=== PATIENT | female | born 1970 | race Caucasian/White ===

== ENCOUNTER → 2019-11-20 12:59 | Outpatient (BNVA) | payer MEDICAID, SELFPAY | PROVIDERS: Family Provider Family Medicine; Visit Provider Nurse Practitioner | DX: F43.12 Post-traumatic stress disorder, chronic (principal); G47.30 Sleep apnea, unspecified | CPT/HCPCS: 99214 ==

== ENCOUNTER → 2019-11-25 13:38 | Outpatient (BNVA) | payer MEDICAID, SELFPAY | PROVIDERS: Family Provider Family Medicine; PCP Registered Nurse; Referring Provider Registered Nurse; Visit Provider Specialist | DX: G40.409 Other generalized epilepsy and epileptic syndromes, not intractable, without status epilepticus (principal) | CPT/HCPCS: 99204; 99214 ==

== ENCOUNTER 2019-11-25 15:09 | Outpatient (CLI) | payer MEDICAID, SELFPAY ==
[2019-11-25 16:46] LABS: Basophils % 0.3 %; Eosinophils # 0.2 10^3/uL (0.0-0.8); Eosinophils % 3.1 %; Hematocrit 43.8 % (37.0-47.0); Hemoglobin 14.5 g/dL (11.5-15.3); Lymphocytes # 2.4 10^3/uL (0.8-4.8); Lymphocytes % 36.4 %; Mean Corpuscular HGB Conc 33.1 g/dL (30.0-36.0); Mean Corpuscular Hemoglobin 30.2 pg (28.0-34.0); Mean Corpuscular Volume 91.3 fL (81-99); Mean Platelet Volume 9.3 fL (7.4-10.4); Monocytes # 0.4 10^3/uL (0.2-0.9); Monocytes % 5.4 %; Neutrophils # 3.5 10^3/uL (1.8-7.7); Neutrophils % 54.5 %; Nucleated Red Blood Cells % 0 %; Platelet Count 277 10^3/cmm (130-400); Red Cell Distribution Width 12.9 % (12.1-15.1); White Blood Count 6.5 10^3/uL (4.0-10.0)
[2019-11-25 17:18] LABS: Alanine Aminotransferase 36 U/L (0-33); Alkaline Phosphatase 98 IU/L (35-105); Anion Gap 16.8 (5-19); Aspartate Amino Transferase 32 U/L (0-32); Blood Urea Nitrogen 14 mg/dL (6-20); Calcium 10.6 mg/dL (8.5-10.5); Carbon Dioxide 24 mmol/L (22-29); Chloride 104 mmol/L (98-107); Estmated Average Glucose 114; Globulin 3.4 g/dL (1.3-4.6); Glomerular Filtration Rate 66.3 mL/min (90-130); Glucose 105 mg/dL (65-115); Hemoglobin A1C 5.6 % (4.0-6.0); Osmolality Calculated 289 mOsm/kg (285-295); Potassium 3.8 mmol/L (3.5-5.1); Sodium 141 mmol/L (136-145); Thyroid Stimulating Hormone 2.29 uIU/mL (0.27-4.20); Total Bilirubin 0.4 mg/dL (0.15-1.2); Total Protein 7.4 g/dL (6.6-8.7)
== END 2019-11-25 15:10 | disposition home or self-care (01) ==
LOC: LAB 15:10
PROVIDERS: Family Provider Family Medicine; PCP Registered Nurse; Visit Provider Specialist
DX: Z00.00 Encounter for general adult medical examination without abnormal findings (principal); G40.309 Generalized idiopathic epilepsy and epileptic syndromes, not intractable, without status epilepticus; G47.30 Sleep apnea, unspecified; F43.12 Post-traumatic stress disorder, chronic; Z79.899 Other long term (current) drug therapy
CPT/HCPCS: 80053; 83036; 84443; 85025

== ENCOUNTER → 2019-11-30 12:24 | Outpatient (BNVA) | payer MEDICAID, SELFPAY | PROVIDERS: Family Provider Family Medicine; PCP Registered Nurse; Visit Provider Specialist | DX: R56.9 Unspecified convulsions (principal) | CPT/HCPCS: 95816 ==

== ENCOUNTER 2019-12-14 19:50 | Emergency (ER) | payer MEDICAID, SELFPAY ==
[2019-12-14 19:51] VITALS: BP 206/96; PULSE 76; RESP 19; TEMP 36.7; O2SAT 97; BMI 51.5
--- NOTE | 2019-12-14 19:52 | CTR_ITS ---
PROCEDURE INFORMATION: Exam: CT Abdomen And Pelvis Without Contrast Exam date and time: 12/14/2019 8:02 PM Age: 49 years old Clinical indication: Abdominal pain; Flank; Left; Prior surgery; Additional info: Flank pain TECHNIQUE: Imaging protocol: Computed tomography of the abdomen and pelvis without contrast. Total DLP: 2039.78 mGy-cm Radiation optimization: All CT scans at this facility use at least one of these dose optimization techniques: automated exposure control; mA and/or kV adjustment per patient size (includes targeted exams where dose is matched to clinical indication); or iterative reconstruction. COMPARISON: No relevant prior studies available. FINDINGS: Pleural space: Scant bilateral pleural effusions. Liver: Hepatomegaly. Gallbladder and bile ducts: Status post cholecystectomy. No visible intra or extrahepatic biliary ectasia. Pancreas: Pancreas unremarkable. No visible pancreatic ductal ectasia. Spleen: Spleen unremarkable. Adrenals: Adrenal glands unremarkable. Kidneys and ureters: Three tiny distal left ureteral stones averaging 2 mm in diameter aligned one after another at the mid sacrum level. Moderate left hydronephrosis and hydroureter to the partially obstructing stones. No visible residual nephrolithiasis left kidney. Solitary 7 mm focus of nonobstructing calyceal nephrolithiasis inferior pole right kidney. Stomach and bowel: Nonobstructive bowel pattern. No visible diverticulitis. No evidence for adynamic or reactive ileus. Appendix: The appendix is not visualized and presumed surgically absent. Intraperitoneal space: Unremarkable. No free air. No significant fluid collection. Vasculature: The abdominal aorta is nonaneurysmal. Mild arterial sclerotic disease. Lymph nodes: Unremarkable. No enlarged lymph nodes. Bladder: Unremarkable as visualized. Reproductive: Status post hysterectomy. Bones/joints: No visible active musculoskeletal pathology. Soft tissues: Unremarkable. Other findings: Marked obesity. CT/CT kidney stone 07773 IMPRESSION: 1. Three tiny distal left ureteral stones averaging 2 mm in diameter aligned like a string of pearls with associated moderate left hydronephrosis and hydroureter to the partially obstructing stones. 2. Bilateral scant pleural effusions. Radiation Dose CTDIVOL = (mGy): DLP = 2039.78 (mGy-cm)
--- NOTE | 2019-12-14 19:52 | W.ED.ABDPA2 ---
HPI - Abdominal Pain General: Chief Complaint: Urogenital-Female Stated Complaint: LEFT FLANK PAIN Time Seen by Provider: 12/14/19 19:52 Source: patient Mode of arrival: ambulatory Limitations: no limitations History of Present Illness: HPI narrative: 49-year-old female comes in today with left flank pain radiating into her groin. Patient has a history of renal stones. Patient appears well. Patient appears in mild to moderate pain. MD elicited complaint: flank pain Review of Systems General: Reports: 10 or more systems reviewed and unremarkable except in HPI and below : Reports: flank pain (left) PFSH ED PFSH: Social History Smoking and tobacco status: never smoked Second hand smoke exposure: No Alcohol intake: never History of recent travel: No Physical Exam Const: COMMON NORMALS: no apparent distress and oriented x3 GENERAL APPEARANCE: cooperative HENMT: COMMON NORMALS: normocephalic, external ears normal, EAC's normal, TM's normal bilaterally and external nose normal HEAD & SCALP: normal to inspection and normocephalic FACE & SINUS: normal facial exam NOSE: external nose normal GENERAL EAR: hearing not grossly impaired EXTERNAL EAR: Yes external ears normal EXTERNAL AUDITORY CANAL: EAC's normal TYMPANIC MEMBRANE: TM's normal bilaterally MOUTH: oral and palatal mucosa normal THROAT: posterior oropharynx normal Eye: COMMON NORMALS: PERRL and EOMs intact bilaterally PUPIL: Yes PERRL Neck/C-Spine: COMMON NORMALS: full ROM and no lymphadenopathy Lymph: LYMPHATIC: no lymphedema noted Chest: COMMONS NORMALS: inspection of chest normal and palpation of chest normal Resp: COMMON NORMALS: normal respiratory effort and clear to auscultation bilaterally AUSCULTATION: clear to auscultation bilaterally Cardio: COMMON NORMALS: regular rate and regular rhythm RATE: regular rate RHYTHM: regular rhythm GI: COMMON NORMALS: normal to inspection, nondistended, normoactive bowel sounds and non-tender : BLADDER/KIDNEY EXAM: Yes CVA tenderness Back/Pelvis: COMMON NORMALS: thoracic and lumbar spine normal to inspection GENERAL BACK: Yes CVA tenderness CVA tenderness: left Extremity: COMMON NORMALS: normal to inspection GENERAL: No edema Neuro: COMMON NORMALS: oriented x3, moves all extremities and no focal motor deficits Psych: COMMON NORMALS: mental status grossly normal and cooperative Skin: COMMON NORMALS: no rashes or lesions noted GENERAL SKIN EXAM: no rashes or lesions noted Course Vital Signs: Vital signs: Vital Signs Temperature 98.1 F 12/14/19 19:51 Pulse Rate 76 12/14/19 19:51 Respiratory Rate 18 12/14/19 20:57 Blood Pressure 206/96 12/14/19 19:51 Pulse Oximetry 97 12/14/19 19:51 MDM - Abdominal Pain MDM Narrative: Medical decision making narrative: Patient comes in with left flank pain radiating into her groin. Patient does have a history of renal calculi. Exam notes CVA tenderness on the left side. Respirations are even lungs are clear to auscultation. Vital signs are normal except for elevated blood pressure. Differential diagnosis includes constipation, renal colic, gastroenteritis, urinary tract infection. Laboratory values noted a white count of 12,000. Creatinine was 0.9. CT scan of the abdomen and pelvis noted 2 mm renal stones in the left ureter with hydronephrosis. Believe the patient probably has renal stones we will treat for pain and nausea. Encourage patient to follow-up with urology for further treatment and evaluation. Patient does see urologist in [place] for her routine care. Lab Data: Labs: Lab Results 12/14/19 12/14/19 12/14/19 Range/Units 20:30 20:30 21:33 WBC 12.8 H (4.0-10.0) 10^3/ uL RBC 4.84 (4.1-5.3) 10^6/u L Hgb 14.5 (11.5-15.3) g/dL Hct 44.5 (37.0-47.0) % MCV 91.9 (81-99) fL MCH 30.0 (28.0-34.0) pg MCHC 32.6 (30.0-36.0) g/dL RDW 12.6 (12.1-15.1) % Plt Count 299 (130-400) 10^3/c mm MPV 8.9 (7.4-10.4) fL Neut % (Auto) 79.2 % Lymph % (Auto) 14.9 % Frontier % (Auto) 4.3 % Eos % (Auto) 0.8 % Baso % (Auto) 0.4 % Neut # (Auto) 10.2 H (1.8-7.7) 10^3/u L Lymph # (Auto) 1.9 (0.8-4.8) 10^3/u L Frontier # (Auto) 0.6 (0.2-0.9) 10^3/u L Eos # (Auto) 0.1 (0.0-0.8) 10^3/u L Baso # (Auto) 0.1 (0.0-0.1) 10^3/u L Nucleated RBC % (a uto) 0 % Nucleated RBCs # 0.0 /100WBC Sodium 138 (136-145) mmol/L Potassium 3.8 (3.5-5.1) mmol/L Chloride 101 (98-107) mmol/L Carbon Dioxide 24 (22-29) mmol/L Anion Gap 16.8 (5-19) BUN 14 (6-20) mg/dL Creatinine 0.9 (0.5-0.9) mg/dL GFR Calculation 66.3 L (90-130) mL/min Glucose 124 H (65-115) mg/dL Calculated Osmolal ity 284 L (285-295) mOsm/k g Calcium 10.5 (8.5-10.5) mg/dL Total Bilirubin 0.2 (0.15-1.2) mg/dL AST 26 (0-32) U/L ALT 29 (0-33) U/L Alkaline Phosphata se 96 (35-105) IU/L Total Protein 7.3 (6.6-8.7) g/dL Albumin 4.2 (3.5-5.2) g/dL Globulin 3.1 (1.3-4.6) g/dL Lipase 19 (13-60) U/L Urine Color Yellow (Yellow) Urine Appearance Hazy A (CLEAR) Urine pH 6 (5-7) Ur Specific Gravit y 1.020 (1.005-1.030) Urine Protein Neg (Negative) Urine Glucose (UA) Norm (Normal) Urine Ketones Negative (Negative) Urine Blood 2+ H (Negative) Urine Nitrate Negative (Negative) Urine Bilirubin Neg (NEGATIVE) Urine Urobilinogen Norm (Negative) mg/dL Ur Leukocyte Raina ase Negative (Negative) Urine RBC 10-15 H (0-2) /hpf Urine WBC None (0-5) /hpf Ur Squamous Epith Cells 10-15 H (0-5) Amorphous Sediment 2+ Urine Bacteria 1+ H (NONE) Discharge Plan Discharge Patient Disposition: Home, Self-Care Clinical Impression: Left ureteral calculus Condition: Stable Prescriptions: New hydrocodone-acetaminophen 5-325 mg tablet 1 tab PO Q6H PRN (Reason: pain (scale score 7-10)) Qty: 14 RF: 0 tamsulosin 0.4 mg capsule 0.4 mg PO DAILY Qty: 7 RF: 0 ondansetron HCl 4 mg tablet 4 mg PO Q8H PRN (Reason: nausea and vomiting) Qty: 10 RF: 0 No Action melatonin 5 mg capsule PO .hs RF: 0 cholecalciferol (vitamin D3) [Vitamin D3] 25 mcg (1,000 unit) capsule 1,000 unit PO DAILY RF: 0 lovastatin 20 mg tablet 20 mg PO DAILY RF: 0 hydrochlorothiazide 25 mg tablet 25 mg PO DAILY RF: 0 meloxicam 15 mg tablet 15 mg PO DAILY RF: 0 allopurinol 300 mg tablet 300 mg PO DAILY RF: 0 magnesium 250 mg tablet 250 mg PO DAILY RF: 0 vit B complex with C #13-FA-D3 1-1,750 mg-unit tablet,disintegrating PO RF: 0 potassium 99 mg tablet PO DAILY RF: 0 multivitamin Capsule 1 cap PO DAILY RF: 0 zonisamide 100 mg capsule 500 mg PO DAILY Qty: 150 RF: 6 ezetimibe 10 mg tablet 10 mg PO DAILY RF: 0 trazodone 100 mg tablet See Rx Instructions PO .QHS Qty: 90 RF: 1 aripiprazole [Abilify] 2 mg tablet 2 mg PO DAILY Qty: 30 RF: 1 clonazepam 0.5 mg tablet See Rx Instructions PO DAILY PRN (Reason: anxiety) Qty: 30 RF: 1 Referrals: Joceline Anderson [Primary Care Provider] - Jelly Bahena DO [Family Provider] - Discharge Diet: Usual diet Discharge Activity: Increase activity as tolerated Patient Instructions: Kidney Stones (ED) Activity Restrictions/Additional Instructions: Home and rest. Activity as tolerated. Tylenol and ibuprofen as needed for pain. Drink plenty of water. Follow-up with Dr. Dawson in the urology clinic or specialist of choice. Return to the ER for high fever persistent nausea and vomiting or new concerns. Coding Level of Care Code ED Orthopaedic Physician Assistant for Chg Fwd Exam Comprehensive
[2019-12-14 20:42] LABS: Basophils # 0.1 10^3/uL (0.0-0.1); Basophils % 0.4 %; Eosinophils # 0.1 10^3/uL (0.0-0.8); Eosinophils % 0.8 %; Hematocrit 44.5 % (37.0-47.0); Hemoglobin 14.5 g/dL (11.5-15.3); Lymphocytes # 1.9 10^3/uL (0.8-4.8); Lymphocytes % 14.9 %; Mean Corpuscular HGB Conc 32.6 g/dL (30.0-36.0); Mean Corpuscular Volume 91.9 fL (81-99); Mean Platelet Volume 8.9 fL (7.4-10.4); Monocytes # 0.6 10^3/uL (0.2-0.9); Monocytes % 4.3 %; Neutrophils # 10.2 10^3/uL (1.8-7.7); Neutrophils % 79.2 %; Nucleated Red Blood Cells % 0 %; Platelet Count 299 10^3/cmm (130-400); Red Blood Count 4.84 10^6/uL (4.1-5.3); Red Cell Distribution Width 12.6 % (12.1-15.1); White Blood Count 12.8 10^3/uL (4.0-10.0)
[2019-12-14 20:57] VITALS: RESP 18
[2019-12-14] MEDS: tamsulosin 0.4 mg Capsule PO (20:57)
[2019-12-14] MEDS: morphine 4 mg/mL SDV 1 mL IM (20:57)
[2019-12-14] MEDS: ondansetron 4 MG Tablet PO (20:57)
[2019-12-14] MEDS: ketorolac 30 mg/mL INJ IM (20:58)
[2019-12-14 21:12] LABS: Alanine Aminotransferase 29 U/L (0-33); Albumin Level 4.2 g/dL (3.5-5.2); Alkaline Phosphatase 96 IU/L (35-105); Anion Gap 16.8 (5-19); Aspartate Amino Transferase 26 U/L (0-32); Blood Urea Nitrogen 14 mg/dL (6-20); Calcium 10.5 mg/dL (8.5-10.5); Carbon Dioxide 24 mmol/L (22-29); Chloride 101 mmol/L (98-107); Globulin 3.1 g/dL (1.3-4.6); Glomerular Filtration Rate 66.3 mL/min (90-130); Glucose 124 mg/dL (65-115); Lipase 19 U/L (13-60); Osmolality Calculated 284 mOsm/kg (285-295); Potassium 3.8 mmol/L (3.5-5.1); Sodium 138 mmol/L (136-145); Total Bilirubin 0.2 mg/dL (0.15-1.2); Total Protein 7.3 g/dL (6.6-8.7)
[2019-12-14 23:02] LABS: Add Urine Microscopic? YES; Bilirubin Urine Neg (NEGATIVE); Blood Urine 2+ (Negative); Glucose Urine UA Norm (Normal); Ketones Urine Negative (Negative); Leukocyte Esterase Urine Negative (Negative); Nitrate Urine Negative (Negative); Protein Urine Neg (Negative); Urine Appearance Hazy (CLEAR); Urine Color Yellow (Yellow); Urobilinogen Urine Norm (Negative); pH Urine 6 (5-7)
[2019-12-14 23:03] LABS: Bacteria Urine 1+
[2019-12-14 23:04] LABS: Add Urine Culture? No; Amorphous Sediment Urine 2+
[2019-12-14] MEDS: HYDROcodone-acetaminophen 5-325 mg Tablet 2 TAB PO (23:35)
[2019-12-14 23:37] VITALS: BP 157/83; PULSE 67; RESP 18; O2SAT 96
--- NOTE | 2019-12-15 11:49 | DCPLANNER ---
manager managed care had message to schedule a follow up appointment for patient with Dr. Dawson. manager managed care called the office of Dr. Dawson, spoke with Dilma. manager managed care gave clinic patients information, was told that it would be printed and given to Ernestine for review. Clinic will call patient with appointment information. manager managed care will call for appointment information.
--- NOTE | 2019-12-16 13:50 | DCPLANNER ---
Patient had an appointment scheduled for 12.16.[address] Dawson. Patient did attend the appointment.
== END 2019-12-14 23:39 | disposition home or self-care (01) ==
LOC: ER 22:34
PROVIDERS: Emergency Provider Nurse Practitioner Family; Family Provider Family Medicine; PCP Registered Nurse
DX: N13.2 Hydronephrosis with renal and ureteral calculous obstruction (principal)
CPT/HCPCS: 12345; 36415; 74176; 80053; 81001; 83690; 85025; 96372; 99282; 99283; A9270; J1885; J2270; Q0162

== ENCOUNTER 2019-12-16 08:06 | Outpatient (CLI) | payer MEDICAID, SELFPAY ==
--- NOTE | 2019-12-16 08:13 | XR_ITS ---
WS: [id number] ABDOMEN KUB CLINICAL INFORMATION: Renal/ureteral calculi. COMPARISON: CT December 14, 2019 FINDINGS: Right lower pole renal parenchymal calculus measuring 6.6 mm. 7 mm cluster of ureteral calculi overly ing the left sacrum the distal left ureter unchanged since the recent CT. Cholecystectomy clips. XR/XR KUB [id number] Impression: 7 mm Cluster of calculi overlying the left lower sacrum in the distal left uret er unchanged since the CT December 14, 2019
== END 2019-12-16 08:07 | disposition home or self-care (01) ==
LOC: RAD 08:09 → RADWPI 08:11
PROVIDERS: Family Provider Family Medicine; PCP Registered Nurse; Visit Provider Urology
DX: N20.1 Calculus of ureter (principal)
CPT/HCPCS: 74018; 81001

== ENCOUNTER 2019-12-17 05:56 | Day surgery (SDC) | payer MEDICAID, SELFPAY ==
[2019-12-16 13:47] VITALS: BMI 51.5
[2019-12-17] VITALS (9 sets, daily range): BP systolic 121–162; BP diastolic 51–87; PULSE 58–81; RESP 14–21; TEMP 36.2–36.6; O2SAT 93–96
--- NOTE | 2019-12-17 | SCC_ITS ---
Procedure Done: 1. Cystoscopy, bilateral retrograde pyelograms 2. Bilateral ureteroscopy, laser, stents 82.9 seconds of fluoroscopic guidance, for a cumulative dose of 54.35 mGy, was provided to Dr. Dawson by the radiology department. C-arm images of the abdomen were saved for the patient's permanent record. [facility]
--- NOTE | 2019-12-17 06:07 | XR_ITS ---
WS: [id number] ABDOMEN: SUPINE FILM HISTORY: Bilateral ureteral calculi, preop COMPARISON: 12/14/2019 and 12/16/2019 Normal bowel gas pattern. Prior cholecystectomy. Right kidney: 6 mm calcification projects over the lower pole RIGHT kidney unchanged. Left kidney: 6.4 mm calcification just LEFT of the sacrum noted to be in the ureter on the prior CT. No change in location. XR/XR KUB 21467 IMPRESSION: 1. Distal LEFT ureteral calcification measuring 6.4 mm unchanged in position. 2. 6 mm calcification lower pole RIGHT kidney.
--- NOTE | 2019-12-17 06:07 | SC_ITS ---
WS: [id number] C-ARM RADIOGRAPHS PELVIS; 9 IMAGES HISTORY: Bilateral ureteral stones COMPARISON: 12/17/2019 Intraoperative imaging during retrograde evaluation of the ureters. Bilateral ureteral stents have be en placed. SC/C-arm FL for Urology IMPRESSION: Intraoperative imaging during ureteral stent placement and retrograde evaluatio n of the ureters.
--- NOTE | 2019-12-17 06:48 | ANES.PREANE2 ---
Pre-Anesthetic Assessment Pre-Anesthetic Assessment: Height/Weight: Height 1.63 m Weight 136.078 kg Temp Pulse Resp BP Pulse Ox 97.3 F L 63 18 159/85 96 12/17/19 06:36 12/17/19 06:36 12/17/19 06:36 12/17/19 06:36 12/17/19 06:36 Preop Diagnosis: Bilateral ureteral calculi Proposed Procedure: Operation Date: 12/17/19 07:20 Proposed Procedures p Cystoscopy 95766 80325 N20.1(Bilateral) - Carlos A Dawson MD s Retrograde Pyelogram(Bilateral) - MD arron Anand Flexible Ureteroscopy(Bilateral) - MD arron Anand Laser Lithotripsy(Bilateral) - MD arron Anand Ureteral Stent Placement(Bilateral) - Carlos A Dawson MD Last intake: Intake Last Liquid Date 12/16/19 Last Liquid Time 19:00 Last Solid Date 12/16/19 Last Solid Time 19:00 Social: Social History: No alcohol and No tobacco Exam: Pre-Anes Outpt Exam: alert, oriented x 3, clear to auscultation bilaterally and regular rate & rhythm Airway: Submandibular: WNL Cervical ROM: WNL MP: 2 Dentition: Other (teeth ok) History/ROS: No significant history except as noted Pulmonary: Pulmonary: Sleep apnea CV/HEM: CV/HEM: HTN : Comments: stones Hepatic: Hepatic: None reported GI: GI: None reported Metabolic: Metabolic: Hyperlipidemia and Morbid obesity Musc/skel: Musc/skel: None reported Neuropsych: Neuropsych: Anxiety, Depression and Seizure (last sezure was years ago) Anesthetic Plan: ASA status: 3 Anesthesia: Anesthesia Evaluation and General Risk of > 500 ml blood loss (7ml/kg in children): No PFSH Anesthesia PFSH: Medical History Hyperlipidemia Post-traumatic stress disorder, chronic Right ureteral calculus S/P extracorporeal shock wave therapy Sleep apnea, unspecified Surgical History H/O knee surgery arthroscopy lt knee H/O: hysterectomy Hx of cholecystectomy Family History Father Diabetes Other Cancer Hypertension Denies family history of CAD (coronary artery disease) Stroke Social History Smoking and tobacco status: never smoked Second hand smoke exposure: No Alcohol intake: never Marital status: Current occupational status: disabled History of recent travel: No Data Anesthesia Cardiac Studies: No Data to Display
--- NOTE | 2019-12-17 06:54 | W.PM.OPSUD ---
Surgery/Procedure H&P Update DATE OF PROCEDURE: December 17, 2019 DATE H&P PERFORMED: 12/16/19 H&P UPDATE INFORMATION: I have reviewed H&P completed within last 30 days, I have examined patient prior to procedure and No changes to prior documentation PREOP DIAGNOSIS: Bilateral ureteral calculi PLANNED PROCEDURE: Operation Date: 12/17/19 07:20 Proposed Procedures p Cystoscopy 85715 83397 N20.1(Bilateral) - MD arron Anand Retrograde Pyelogram(Bilateral) - MD arron Anand Flexible Ureteroscopy(Bilateral) - MD arron Anand Laser Lithotripsy(Bilateral) - MD arron Anand Ureteral Stent Placement(Bilateral) - Carlos A Dawson MD
[2019-12-17] MEDS: sodium chloride 0.9% 1,000 ML 30 ML IV (06:58)
[2019-12-17] MEDS: levofloxacin-dextrose 5 % 500 MG/100 ML PREMIX 100 MG IV (07:01)
--- NOTE | 2019-12-17 07:05 | P.OP_ITS ---
Operative Report Date of procedure: December 17, 2019 Pre-op Diagnosis: Bilateral ureteral calculi Post-op diagnosis: same Procedure Done: 1. Cystoscopy, bilateral retrograde pyelograms 2. Bilateral ureteroscopy, laser, stents Implants: Bilateral ureteral stents Surgeon: Samir Anesthesia: General Estimated blood loss: Minimal Complications: None Condition: stable Disposition: PACU Brief History: Mrs. Mcclelland is a very pleasant 49-year-old white female with a history of severe left flank pain requiring evaluation the emergency department recently with demonstration of a large stone in the left distal ureter. It was originally read as 2 mm and a couple of stones but actually the stone is quite larger. The stone had not progressed on follow-up visit. 1 surprise was that a 6 mm to 7 mm right lower pole stone appeared to be at the right UPJ/proximal ureter on follow-up KUB yesterday. Because of the concern regarding the potential for bilateral ureteral obstruction the patient was felt to be an urgent status and was recommended to undergo at least bilateral ureteral stenting but hopefully treatment of both stones if possible. On preoperative KUB today it appeared that the right UPJ/proximal ureteral stone might have moved back into the right lower pole. Procedure: After routine preoperative evaluation evaluation examination and obtaining of informed consent she was taken to the operating suite on 12/17/2019 where general anesthesia was administered without difficulty after appropriate timeout was performed, SCDs confirmed to be functioning, preoperative antibiotics administered, beta-pantera protocol confirmed. Prepped and draped in usual sterile fashion in dorsolithotomy position pain careful attention to voiding pressure points. 21 Wallisian cystoscope with 30 degree lens was introduced into urethral meatus and advanced into the bladder under videoscopy. Bladder was systematically examined found to be within normal limits. 8 Wallisian cone-tipped catheter intubate into the left ureteral orifice for LEFT retrograde ureteropyelogram that demonstrated: Normal distal ureter, filling defect consistent with a stone seen on preoperative KUB and CT scan, proximal dilation of the ureter beyond the stone. Flexible tip guidewire was then advanced up the left ureter bypassing the stone and curling in the area of the renal pelvis. The distal ureter was then dilated with a 15 Wallisian 4 cm balloon and a second guidewire was passed. 1 wire was secured to the drapes as a safety wire and the other as a working wire was utilized to pass a 24 cm ureteral access sheath into the distal ureter. The offset semirigid ureteroscope was then advanced up to the stone over the guidewire the guidewire removed and then a 365 ?m homing laser fiber was utilized to fragment the stone into small pieces that were then removed with basketing and grasping forceps. Most of the particles were seen in size and flushed out of the ureter. Final inspection showed no residual fragments. A 6 Wallisian by 26 cm double-pigtail stent without string was advanced over the safety wire into appropriate position as confirmed via fluoroscopy and cystoscopy. Attention was directed then to the right side. An 8 Wallisian cone-tip catheter was intubated to the right ureteral orifice and a right retrograde ureteropyelogram was performed demonstrating: Normal course and caliber of the ureter. The stone did appear to be back into the right lower pole position. No other stones or filling defects were identified. It was decided to treat with flexible ureteroscopy with laser lithotripsy to reduce the risk of distal migration happening again and necessitating intervention. Flexible tip guidewire was then advanced up the right ureter into the upper pole calyx. The distal ureter was then dilated with a 15 Wallisian 4 cm balloon and a second guidewire was passed as a working wire. The first wire was secured to the drapes as a safety wire. The ureteral access sheath was then advanced over the working wire and a flexible ureteroscope was advanced over the wire through the working sheath up into the right ureter. The stone was located in the right lower pole and the laser was utilized to fragment into small pieces that were easily passable. A lot of the sand sized fragments flushed free and out Inspection of the ureter was conducted as the scope was removed. A 6 Wallisian by 26 cm double-pigtail stent was left indwelling, bladder drained, procedure completed. Tolerated the procedure well without complications and was awakened in the operating room and returned to the recovery room in stable condition. PLANS: 1. Discharge from outpatient surgery 2. Follow-up in approximately 1 week for KUB and stent removal most likely.
[2019-12-17] MEDS: iohexol 300 mg/mL 50 mL Btl XX (07:21)
[2019-12-17 07:38] LABS: Blood Urea Nitrogen 17 mg/dL (6-20); Calcium 10.1 mg/dL (8.5-10.5); Carbon Dioxide 27 mmol/L (22-29); Chloride 103 mmol/L (98-107); Glomerular Filtration Rate 47.6 mL/min (90-130); Glucose 100 mg/dL (65-115); Osmolality Calculated 286 mOsm/kg (285-295); Sodium 140 mmol/L (136-145)
[2019-12-17] MEDS: ondansetron 2 mg/ML SDV 2 mL 4 MG IVP (08:46)
== END 2019-12-17 09:38 | disposition home or self-care (01) ==
PROVIDERS: Family Provider Family Medicine; PCP Family Medicine; Visit Provider Urology
PROC: 0TJB8ZZ Inspection of Bladder, Via Natural or Artificial Opening Endoscopic (ICD-10-PCS; CPT 52000; principal; 2019-12-17 07:00)
PROC: (CPT 74420; 2019-12-17 07:00)
PROC: 0TJ98ZZ Inspection of Ureter, Via Natural or Artificial Opening Endoscopic (ICD-10-PCS; CPT 52351; 2019-12-17 07:00)
PROC: (CPT 52356; 2019-12-17 07:00)
PROC: (CPT 50605; 2019-12-17 07:00)
DX: N20.1 Calculus of ureter (principal); G47.30 Sleep apnea, unspecified; I10 Essential (primary) hypertension; E66.01 Morbid (severe) obesity due to excess calories; Z68.43 Body mass index [BMI] 50.0-59.9, adult; E78.5 Hyperlipidemia, unspecified; Z82.49 Family history of ischemic heart disease and other diseases of the circulatory system
CPT/HCPCS: 52356; 12345; 36415; 74018; 76000; 80048; 82365; 88300; C1725; C2625; J1956; J2405; J2704; J2710; J3010; J3490; J7030; Q9967

== ENCOUNTER 2019-12-23 09:08 | Outpatient (CLI) | payer MEDICAID, SELFPAY ==
--- NOTE | 2019-12-23 09:11 | XR_ITS ---
WS: [id number] ABDOMEN 1 VIEW(S) HISTORY: BILATERAL URETERAL CALCULI COMPARISON: 12/17/2019 Normal bowel gas pattern. Bilateral ureteral stents. Double pigtail catheters are in appropriate position. No calcifications al bruce the course of the stents appreciated. No bone abnormality. Prior cholecystectomy. XR/XR KUB 59672 IMPRESSION: Bilateral ureteral stents in good position. Previously described calcifications are not evident.
== END 2019-12-23 09:09 | disposition home or self-care (01) ==
LOC: RADWPI 09:10
PROVIDERS: Family Provider Family Medicine; PCP Family Medicine; Visit Provider Urology
DX: Z96.0 Presence of urogenital implants (principal); N20.1 Calculus of ureter
CPT/HCPCS: 74018; 81001

== ENCOUNTER → 2020-01-22 08:46 | Outpatient (BNVA) | payer MEDICAID, SELFPAY | PROVIDERS: Family Provider Family Medicine; PCP Family Medicine; Visit Provider Nurse Practitioner | DX: F43.12 Post-traumatic stress disorder, chronic (principal); G47.30 Sleep apnea, unspecified | CPT/HCPCS: 99212 ==

== ENCOUNTER 2020-03-21 06:12 | Day surgery (SDC) | payer MEDICAID, SELFPAY ==
[2020-03-17 11:01] VITALS: BMI 51.1
[2020-03-17 11:09] VITALS: BMI 51.1
--- NOTE | 2020-03-21 06:31 | W.PM.OPSUD ---
Surgery/Procedure H&P Update DATE OF PROCEDURE: March 21, 2020 DATE H&P PERFORMED: 03/07/20 H&P UPDATE INFORMATION: I have reviewed H&P completed within last 30 days, I have examined patient prior to procedure and No changes to prior documentation PREOP DIAGNOSIS: Bleeding per rectum PRIMARY INDICATION FOR PROCEDURE: The same PLANNED PROCEDURE: Operation Date: 03/21/20 07:00 Proposed Procedures p Colonoscopy 41472 Z86.010 K64.4 Pentax(Not Applicable) - Izaiah Wong MD s Exam Under Anesthesia 16487(Not Applicable) - Izaiah Wong MD s Hemorroidectomy 39573(Not Applicable) - Izaiah Wong MD
[2020-03-21 06:36] VITALS: BP 145/80; PULSE 63; RESP 18; TEMP 36.2; O2SAT 96
[2020-03-21] MEDS: sodium chloride 0.9% 1,000 ML 30 ML IV (06:41)
--- NOTE | 2020-03-21 06:53 | P.ANES_ITS ---
Anesthesia Procedures Procedure/Date: 03/21/20
--- NOTE | 2020-03-21 06:53 | ANES.PROC ---
Anesthesia Procedures Procedure/Date: 03/21/20
--- NOTE | 2020-03-21 06:55 | ANES.PREANE2 ---
Pre-Anesthetic Assessment Pre-Anesthetic Assessment: Height/Weight: Height 1.63 m Weight 135.171 kg Temp Pulse Resp BP Pulse Ox 97.2 F L 63 18 145/80 96 03/21/20 06:36 03/21/20 06:36 03/21/20 06:36 03/21/20 06:36 03/21/20 06:36 Preop Diagnosis: Bleeding per rectum Proposed Procedure: Operation Date: 03/21/20 07:00 Proposed Procedures p Colonoscopy 75662 Z86.010 K64.4 Pentax(Not Applicable) - Izaiah Wong MD s Exam Under Anesthesia 60478(Not Applicable) - Izaiah Wong MD s Hemorroidectomy 35978(Not Applicable) - Izaiah Wong MD Was Beta Mindy taken within 24 hours: N/A Social: Social History: No alcohol and No tobacco Exam: Pre-Anes Outpt Exam: alert, oriented x 3, clear to auscultation bilaterally and regular rate & rhythm Airway: Submandibular: WNL Cervical ROM: WNL MP: 2 Dentition: Full History/ROS: No significant history except as noted and No significant complaints Pulmonary: Pulmonary: Asthma and Sleep apnea CV/HEM: CV/HEM: None reported : : None reported Hepatic: Hepatic: None reported GI: GI: None reported Metabolic: Metabolic: Morbid obesity Musc/skel: Musc/skel: None reported Neuropsych: Neuropsych: Seizure Anesthetic Plan: ASA status: 3 Anesthesia: MAC Risk of > 500 ml blood loss (7ml/kg in children): No Meds/Allergies Current Medications: Current Medications Generic Name Dose Route Start Last Admin Trade Name Freq PRN Reason Stop Dose Admin Sodium Chloride 1,000 mls @ 30 ml s/hr 03/21/20 06:30 03/21/20 06:41 Sodium Chloride 0.9% IV 03/22/20 06:29 30 mls/hr .Q24H JUAN RAMON Administration PFSH Anesthesia PFSH: Medical History Bilateral renal stones Hyperlipidemia Post-traumatic stress disorder, chronic Retained ureteral stent Right ureteral calculus Sleep apnea, unspecified Surgical History H/O knee surgery arthroscopy lt knee H/O: hysterectomy Hx of cholecystectomy S/P extracorporeal shock wave therapy S/P ureteral stent placement ureteroscopy, bilateral retrograde pyelogram, laser Status post laser lithotripsy of ureteral calculus Family History Father Diabetes Other Cancer Hypertension Denies family history of CAD (coronary artery disease) Anesthesia complication Bleeding disorder Stroke Social History Smoking and tobacco status: never smoked Second hand smoke exposure: No Alcohol intake: never Marital status: Current occupational status: disabled History of recent travel: No Data Anesthesia Cardiac Studies: No Data to Display
[2020-03-21] MEDS: ciprofloxacin 400 MG/200 ML PREMIX 200 MG IV (06:57)
[2020-03-21] MEDS: metroNIDAZOLE IV 500 MG/100 ML PREMIX 100 MG IV (07:15)
--- NOTE | 2020-03-21 07:40 | P.OP_ITS ---
Operative Report Date of procedure: March 21, 2020 Pre-op Diagnosis: Bleeding per rectum Post-op diagnosis: same (Right lower lateral external hemorrhoid) Procedure Done: Colonoscopy, examination under anesthesia and hemorrhoidectomy Right pudendal nerve block Specimens removed/disposition: Right lower lateral hemorrhoid Surgeon: Izaiah Wong Consumer Product Advisor: [facility] [place] Anesthesia: MAC (Jace Golden) Estimated blood loss (mL): 5 Condition: stable Disposition: same day Brief History: This is a pleasant 49 years old female patient referred to my practice with intermittent bleeding per rectum associated with the clinical finding of right lower lateral hemorrhoid, patient was counseled for colonoscopy, examination under anesthesia and possible hemorrhoidectomy. Informed consent per chart Procedure: Patient was identified in the holding area, was taken to the OR placed first in supine position,IV antibiotics were given with induction time- out was done verifying the patient's name, date of , and procedure, all were in agreement. IV propofol was infused by the anesthesia provider, patient was placed in left lateral position and all pressure points were padded. Perianal examination showed right lower lateral hemorrhoid Following that a digital rectal examination was done no masses were appreciated, the colonoscope was then introduced via the anus under direct visualization, all the way to the cecum, prep of the colon was appropriate, there were no polyps identified or masses or diverticular disease or strictures, the scope was then retrieved back ,time for withdrawal exceeded 6 minutes, CO2 gas was deflated on the way out. Retroflex was done showing normal findings Prep and drape of the perineum was done under the usual sterile technique,right pudendal nerve block and perianal infiltration at the site of the right lower lateral hemorrhoid was achieved using Exparel. The block of the pudendal nerve on the right side the guiding point was the ischial spine on the right side located by the examining finger. A well lubricated self-retaining proctoscope was inserted,Started by introducing a wet sponge to prevent any residual colon prep from contaminating the site of the excision, and under direct visualization, hemostats were applied onto the right lower lateral hemorrhoid and harmonic scalpel was used for excision following that a continuous 2-0 chromic catgut was used for approximation of the edges. Specimen was passed to the circulating nurse for permanent pathology then irrigation was done appropriate hemostasis was achieved and the previously placed 4 x 4 was removed. A piece of Surgicel /piece of Xeroform impregnated with lidocaine 2% jelly was placed in the anal canal, attached to 2-0 silk suture, to help retrieving it by the patient later on ABDs were applied followed by surgical pants Patient was repositioned to supine position, counts of instruments,needles and sponges were completed at the end of the procedure. Patient was taken to the recovery area in stable condition I was present for the whole entire procedure
[2020-03-21 07:43] VITALS: BP 130/71; PULSE 54; RESP 18; TEMP 36.3; O2SAT 94
[2020-03-21 08:13] VITALS: BP 164/92; PULSE 54; RESP 18; O2SAT 94
== END 2020-03-21 08:30 | disposition home or self-care (01) ==
PROVIDERS: PCP Family Medicine; Visit Provider Surgery
PROC: 0DJD8ZZ Inspection of Lower Intestinal Tract, Via Natural or Artificial Opening Endoscopic (ICD-10-PCS; CPT 45378; principal; 2020-03-21 07:00)
PROC: (CPT 46999; 2020-03-21 07:00)
PROC: (CPT 46999; 2020-03-21 07:00)
DX: K62.5 Hemorrhage of anus and rectum (principal); K64.8 Other hemorrhoids; K64.4 Residual hemorrhoidal skin tags; Z86.010 Personal history of colon polyps; J45.909 Unspecified asthma, uncomplicated; G47.30 Sleep apnea, unspecified; E66.01 Morbid (severe) obesity due to excess calories; Z68.43 Body mass index [BMI] 50.0-59.9, adult; E78.5 Hyperlipidemia, unspecified
CPT/HCPCS: 46999; 12345; 45378; 88304; 96365; C9290; J0131; J0744; J2001; J2704; J3490; J7030; S0030

== ENCOUNTER 2020-03-27 14:10 | Emergency (ER) | payer MEDICAID, SELFPAY ==
[2020-03-27 14:13] VITALS: BP 145/99; PULSE 99; RESP 18; TEMP 36.8; O2SAT 94; BMI 51.5
--- NOTE | 2020-03-27 14:36 | ED_ITS ---
HPI - General Adult General: Chief complaint: General Medical Stated complaint: post op problems Time Seen by Provider: 03/27/20 14:14 History of Present Illness: HPI narrative: Patient underwent hemorrhoidectomy 6 days ago. She presents to the emergency room today with increasing pain. She states that she is afraid that the area is infected. Onset (ago): hour(s) Location: buttocks Radiation: non-radiation Severity: severe Quality: burning Pain Consistency: constant Relieving factors: none Exacerbating factors: movement Review of Systems General: Reports: 10 or more systems reviewed and unremarkable except in HPI and below PFS ED PFSH: Medical History Bilateral renal stones Hyperlipidemia Post-traumatic stress disorder, chronic Retained ureteral stent Right ureteral calculus Sleep apnea, unspecified Surgical History H/O knee surgery arthroscopy lt knee H/O: hysterectomy Hx of cholecystectomy S/P extracorporeal shock wave therapy S/P ureteral stent placement ureteroscopy, bilateral retrograde pyelogram, laser Status post laser lithotripsy of ureteral calculus Family History Father Diabetes Other Cancer Hypertension Denies family history of CAD (coronary artery disease) Anesthesia complication Bleeding disorder Stroke Social History Smoking and tobacco status: never smoked Second hand smoke exposure: No Alcohol intake: never Marital status: Current occupational status: disabled History of recent travel: No Physical Exam Const: COMMON NORMALS: no acute distress, patient oriented x3, no limitations and alert HENMT: COMMON NORMALS: normocephalic, atraumatic, external ears normal and Normal external nose present HEAD & SCALP: normocephalic and atraumatic FACE & SINUS: normal facial exam NOSE: Normal external nose present EXTERNAL EAR: Yes external ears normal MOUTH: Normal oral and palatal mucosa present Neck/C-Spine: COMMON NORMALS: full ROM, no lymphadenopathy, supple, no meningeal signs and no JVD GENERAL: Yes normal visual inspection Resp: COMMON NORMALS: normal respiratory effort, No retractions, No use of accessory muscles and clear to auscultation bilaterally AUSCULTATION: clear to auscultation bilaterally Cardio: COMMON NORMALS: no JVD, regular rate and regular rhythm RATE: regular rate RHYTHM: regular rhythm GI: COMMON NORMALS: Normal to inspection, nondistended, normoactive bowel s ounds present, Soft to palpation, non-tender, No hepatosplenomegaly present and no masses INSPECTION: Yes normal to inspection AUSCULTATION: Yes normoactive bowel sounds PALPATION: Yes Soft to palpation and Yes No hepatosplenomegaly present PERCUSSION: normal to percussion OTHER: There is a 6 mm x 8 mm open area from the recent surgery. There is no active bleeding. There is no evidence of infection. : COMMON NORMALS: Yes no CVA tenderness and Yes normal external appearance BLADDER/KIDNEY EXAM: Yes no CVA tenderness Back/Pelvis: COMMON NORMALS: no CVA tenderness, thoracic and lumbar spine normal to inspection, no thoracic nor lumbar tenderness, thoraco-lumbar ROM normal and straight leg raise negative bilaterally Extremity: COMMON NORMALS: normal to inspection, full ROM, capillary refill normal, no joint enlargement, no clubbing, cyanosis or edema, no calf tenderness and no pedal edema Neuro: COMMON NORMALS: patient oriented x3, moves all extremities, no focal motor deficits and no sensory deficits noted SENSORIUM/ORIENTATION: Yes alert MENINGEAL SIGNS: Yes no meningeal signs Psych: COMMON NORMALS: mental status grossly normal, Normal thought process present, cooperative, normal affect and speech normal SPEECH: Yes normal speech THOUGHT PROCESS: Normal thought process present Skin: COMMON NORMALS: no rashes or lesions noted, no wounds, turgor normal, no jaundice, no petechiae and no mottling GENERAL SKIN EXAM: no rashes or lesions noted and turgor normal Course Vital Signs: Vital signs: Vital Signs Temperature 98.3 F 03/27/20 14:13 Pulse Rate 99 03/27/20 14:13 Respiratory Rate 18 03/27/20 14:13 Blood Pressure 145/99 03/27/20 14:13 Pulse Oximetry 94 03/27/20 14:13 MDM - General Adult MDM Narrative: Medical decision making narrative: I contacted Dr. Carrasco spoke with him by phone. He requests that I place the patient on Cipro and Flagyl and encourage her to continue sitz baths and to follow-up with him this week as scheduled. Discharge Plan Discharge Patient Disposition: Home, Self-Care Clinical Impression: Post-operative pain Condition: Stable Prescriptions: New Cipro 500 mg tablet 500 mg PO Q12H Qty: 20 RF: 0 Flagyl 500 mg tablet 250 mg PO TID Qty: 30 RF: 0 No Action fenofibrate 160 mg tablet 160 mg PO DAILY RF: 0 hydrochlorothiazide 25 mg tablet 25 mg PO DAILY RF: 0 meloxicam 15 mg tablet 15 mg PO DAILY RF: 0 Hold Instructions: Resume on 03/28/20. allopurinol 300 mg tablet 300 mg PO DAILY RF: 0 magnesium 250 mg tablet 500 mg PO DAILY RF: 0 vit B complex with C #[id number] 1-1,750 mg-unit tablet,disintegrating 1 tab PO DAILY RF: 0 potassium 99 mg tablet 99 mg PO DAILY RF: 0 multivitamin Capsule 1 cap PO DAILY RF: 0 zonisamide 100 mg capsule 500 mg PO DAILY Qty: 150 RF: 6 melatonin 5 mg capsule 3 mg PO .hs RF: 0 lovastatin 20 mg tablet 40 mg PO DAILY RF: 0 aripiprazole [Abilify] 2 mg tablet 2 mg PO DAILY Qty: 30 RF: 1 multivitamin with minerals [Hair,Skin and Nails] Tablet 1 tab PO DAILY RF: 0 cholecalciferol (vitamin D3) 25 mcg (1,000 unit) capsule 1,000 unit PO DAILY RF: 0 ondansetron HCl 4 mg tablet 4 mg PO Q8H PRN (Reason: nausea and vomiting) Qty: 10 RF: 0 Stimulant Laxative Plus 8.6-50 mg tablet 1 tab PO DAILY RF: 0 clonazepam 0.5 mg tablet 0.5 mg PO DAILY RF: 0 trazodone 100 mg tablet 300 mg PO .QHS RF: 0 [place] 5-325 mg tablet 1 tab PO Q6H PRN (Reason: pain) Qty: 28 RF: 0 Discharge Orders: Discharge Order (Routine); Ordered 03/27/20 Ordered By: Inder Albert Referrals: Jelly Bahena DO [Primary Care Provider] - Coding Level of Care Code ED Hairspring Truing Inspector for g Fwd Exam Comprehensive
[2020-03-27 14:48] VITALS: RESP 16
== END 2020-03-27 14:48 | disposition home or self-care (01) ==
PROVIDERS: Emergency Provider Family Medicine; PCP Family Medicine
DX: G89.18 Other acute postprocedural pain (principal); E78.5 Hyperlipidemia, unspecified
CPT/HCPCS: 12345; 99281

== ENCOUNTER → 2020-04-20 09:10 | Outpatient (BNVA) | payer MEDICAID, SELFPAY | PROVIDERS: PCP Family Medicine; Visit Provider Nurse Practitioner | DX: F43.12 Post-traumatic stress disorder, chronic (principal); G47.30 Sleep apnea, unspecified | CPT/HCPCS: 99213 ==

== ENCOUNTER 2020-06-28 09:54 | Outpatient (CLI) | payer MEDICAID, SELFPAY ==
--- NOTE | 2020-06-28 10:15 | XRR_ITS ---
PROCEDURE INFORMATION: Exam: XR Abdomen, 1 View Exam date and time: 06/28/2020 10:20 AM Age: 50 years old Clinical indication: Condition or disease; Kidney or ureter condition; Calculus (stone) in kidney; Prior surgery; Surgery type: Gb; Additional info: Renal stones TECHNIQUE: Imaging protocol: XR of the abdomen. Views: Frontal supine view of the abdomen. 1 View. COMPARISON: CR XR KUB [id number] 12/23/2019 9:18 AM FINDINGS: Gastrointestinal tract: The bowel gas pattern is nonspecific. Air filled large bowel including distal rectal gas. Intraperitoneal space: Tiny 2 mm calcification left pelvis. Correlate. Organs: Surgical clips are present in the region of the gallbladder fossa. Bones/joints: Unremarkable. XR/XR KUB [id number] IMPRESSION: The bowel gas pattern is nonspecific. Air filled large bowel including distal rectal gas.
== END 2020-06-28 09:55 | disposition home or self-care (01) ==
PROVIDERS: PCP Family Medicine; Visit Provider Urology
DX: N20.0 Calculus of kidney (principal); N20.1 Calculus of ureter
CPT/HCPCS: 74018; 81001

== ENCOUNTER 2020-06-30 09:56 | Outpatient (CLI) | payer MEDICAID, SELFPAY ==
--- NOTE | 2020-06-30 10:03 | MM_ITS ---
WS: [id number] BILATERAL DIGITAL SCREENING MAMMOGRAPHY WITH CAD CLINICAL INFORMATION: SCREENING HISTORY: Screening mammogram. Bilateral breast tenderness COMPARISON: TECHNIQUE: Bilateral CC and MLO views. FINDINGS: Scattered fibroglandular densities bilaterally. No suspicious focal mass, asymmetry, calcifications, or architectural distortion. No evidence of malignancy. MM/[place] [id number] IMPRESSION: BI-RADS: 1-Negative FOLLOW UP: 1 Year Follow-up Recommend return to annual screening mammography.
== END 2020-06-30 09:57 | disposition home or self-care (01) ==
LOC: RADSHAW 10:00
PROVIDERS: PCP Family Medicine; Visit Provider Registered Nurse
DX: Z12.31 Encounter for screening mammogram for malignant neoplasm of breast (principal)
CPT/HCPCS: 77067

== ENCOUNTER → 2020-07-04 08:42 | Outpatient (BNVA) | payer MEDICAID, SELFPAY | PROVIDERS: PCP Family Medicine; Visit Provider Nurse Practitioner | DX: F43.12 Post-traumatic stress disorder, chronic (principal); G47.30 Sleep apnea, unspecified | CPT/HCPCS: 99213 ==

== ENCOUNTER → 2020-08-30 09:57 | Outpatient (BNVA) | payer MEDICAID, SELFPAY | PROVIDERS: PCP Family Medicine; Visit Provider Nurse Practitioner | DX: F43.12 Post-traumatic stress disorder, chronic (principal) | CPT/HCPCS: 99213 ==

== ENCOUNTER 2020-08-31 07:08 | Outpatient (CLI) | payer MEDICAID, SELFPAY ==
--- NOTE | 2020-08-31 | USCV_ITS ---
Stas Janel Age: 50 Gender: F : 1970 Exam Date: 08/31/2020 07:30 Ordering Phys: Joceline Anderson Technologist: Bella Osuna [place] [facility] [place]: LBBB BP: / HR: 50 Rhythm: Sinus Technical Quality: Adequate MEASUREMENTS (Male / Female) Normal Values 2D ECHO LV Diastolic Diameter PLAX 4.7 cm 4.2 - 5.9 / 3.9 - 5.3 cm LV Systolic Diameter PLAX 2.8 cm LV Chamber Size 4.1 cm IVS Diastolic Thickness 1.0 cm 0.6 - 1.0 / 0.6 - 0.9 cm IVS Systolic Thickness 1.5 cm LVPW Diastolic Thickness 0.8 cm 0.6 - 1.0 / 0.6 - 0.9 cm LVPW Systolic Thickness 1.3 cm RV Chamber Size 3.0 cm LVOT Diameter 2.1 cm LV Ejection Fraction 2D Teich 71.6 % LV Ejection Fraction MOD 2C 52.2 % LV Ejection Fraction 2C AL 57.2 % LA Diameter 3.3 cm LA Width 3.2 cm LA Height 4.0 cm RA Width 3.1 cm RA Height 3.4 cm Aorta at Sinotubular Diameter 3.2 cm M-MODE LV Diastolic Diameter MM 4.0 cm 4.2 - 5.9 / 3.9 - 5.3 cm LV Systolic Diameter MM 2.5 cm LV Ejection Fraction MM Teich 70.2 % IVS Diastolic Thickness MM 1.0 cm 0.6 - 1.0 / 0.6 - 0.9 cm IVS Systolic Thickness MM 1.4 cm LVPW Diastolic Thickness MM 1.0 cm 0.6 - 1.0 / 0.6 - 0.9 cm LVPW Systolic Thickness MM 1.3 cm RV Diastolic Diameter MM 1.2 cm Aortic Annulus Diameter 3.7 cm LA Ao Ratio MM 1.1 MV E Point Septal Separation 0.5 cm DOPPLER AV Peak Velocity 111.0 cm/s LVOT Peak Velocity 91.0 cm/s AV Area Cont Eq vti 2.4 cm squared AV Area Cont Eq pk 2.7 cm squared MV Area PHT 6.5 cm squared Mitral E to A Ratio 1.2 MV E' Velocity 48.5 cm/s Mitral E to MV E' Ratio 7.8 Mitral E to LV E' Lateral Ratio 8.0 Mitral E to LV E' Septal Ratio 7.7 TR Peak Velocity 127.7 cm/s TR Peak Gradient 6.5 mmHg TR Mean Velocity 85.2 cm/s TR Mean Gradient 3.4 mmHg TR Velocity Time Integral 34.1 cm TV Peak E Velocity 86.0 cm/s Right Atrial Pressure 3.0 mmHg Pulmonary Artery Systolic Pressu 9.5 mmHg PV Peak Velocity 66.0 cm/s RV Acceleration Time 0.2 s RV Ejection Time 0.3 s RV AcT/ET 0.6 FINDINGS Left Ventricle Normal left ventricular size and systolic function, EF 60%. No regional wall motion abnormalities. Right Ventricle The right ventricle is normal in size and function. Right Atrium The right atrium is normal in size. Left Atrium The left atrium is normal in size. Mitral Valve No gross abnormalities noted Aortic Valve No gross abnormalities noted Tricuspid Valve Trace tricuspid valve regurgitation. Pulmonic Valve No gross abnormalities noted Pericardium Normal pericardium without effusion. Aorta Normal ascending aorta dimension. CONCLUSIONS Normal left ventricular size and systolic function, EF 60%. No regional wall motion abnormalities. Trace tricuspid valve regurgitation. There is no pericardial effusion. There are no intracardiac masses. No previous study is available for comparison. Dr Latrell Falk MD FAC (Electronically Signed) Final Date: 31 August 2020 09:21 S
== END 2020-08-31 07:09 | disposition home or self-care (01) ==
PROVIDERS: PCP Family Medicine; Visit Provider Registered Nurse
DX: E78.2 Mixed hyperlipidemia (principal); E66.01 Morbid (severe) obesity due to excess calories; R06.02 Shortness of breath; R07.89 Other chest pain; I44.4 Left anterior fascicular block; I07.1 Rheumatic tricuspid insufficiency
CPT/HCPCS: 93306

== ENCOUNTER → 2020-10-27 08:02 | Outpatient (BNVA) | payer MEDICAID, SELFPAY | PROVIDERS: PCP Family Medicine; Visit Provider Nurse Practitioner | DX: F43.12 Post-traumatic stress disorder, chronic (principal) | CPT/HCPCS: 99214 ==

== ENCOUNTER → 2020-11-21 13:05 | Outpatient (BNVA) | payer MEDICAID, SELFPAY | PROVIDERS: PCP Family Medicine; Visit Provider Specialist | DX: G40.309 Generalized idiopathic epilepsy and epileptic syndromes, not intractable, without status epilepticus (principal); N20.0 Calculus of kidney | CPT/HCPCS: 99213; 99214 ==

== ENCOUNTER → 2021-01-13 08:12 | Outpatient (BNVA) | payer MEDICAID, SELFPAY | PROVIDERS: PCP Family Medicine; Visit Provider Nurse Practitioner | DX: F43.12 Post-traumatic stress disorder, chronic (principal) | CPT/HCPCS: 99214 ==

== ENCOUNTER → 2021-04-11 15:02 | Outpatient (BNVA) | payer MEDICAID, SELFPAY | PROVIDERS: PCP Family Medicine; Visit Provider Nurse Practitioner | DX: F43.12 Post-traumatic stress disorder, chronic (principal) | CPT/HCPCS: 99214 ==

== ENCOUNTER 2021-05-23 12:51 | Outpatient (CLI) | payer MEDICAID, SELFPAY ==
--- NOTE | 2021-05-23 13:00 | XRR_ITS ---
PROCEDURE INFORMATION: Exam: XR Right Knee Exam date and time: 05/23/2021 1:00 PM Age: 51 years old Clinical indication: Pain; Knee; Right; Prior surgery; Additional info: Chronic pain of right knee TECHNIQUE: Imaging protocol: XR Right knee. Views: 3 views. COMPARISON: No relevant prior studies available. FINDINGS: Bones/joints: No fracture or other acute bone or joint abnormalities are present. Moderate DJD is present with osteophytes on the femoral condyles and tibial plateau. There is medial joint space narrowing. Soft tissues: Normal. XR/XR knee RT 3V* [id number] IMPRESSION: Moderate DJD. No acute abnormality.
== END 2021-05-23 12:52 | disposition home or self-care (01) ==
PROVIDERS: PCP Family Medicine; Visit Provider Registered Nurse
DX: G89.29 Other chronic pain (principal); M17.11 Unilateral primary osteoarthritis, right knee
CPT/HCPCS: 73562

== ENCOUNTER 2021-06-27 13:04 | Outpatient (CLI) | payer MEDICAID, SELFPAY ==
--- NOTE | 2021-06-27 13:00 | XR_ITS ---
WS: [id number] XR KUB [id number] REASON FOR EXAM: UROLITHIASIS FINDINGS: No definite urinary tract calculi seen on the abdomen film of 06/28/2020. On the current examination there is a dense calculus overlying the lower pole of the kidney. No definite left intrarenal calculi. No ureteral or bladder calculi identified. XR/XR KUB [id number] IMPRESSION: Interval development of right renal calculus as above.
== END 2021-06-27 13:05 | disposition home or self-care (01) ==
LOC: RAD 13:07
PROVIDERS: PCP Family Medicine; Visit Provider Urology
DX: N20.0 Calculus of kidney (principal)
CPT/HCPCS: 74018; 81003

== ENCOUNTER → 2021-07-06 13:36 | Outpatient (BNVA) | payer MEDICAID, SELFPAY | PROVIDERS: PCP Family Medicine; Visit Provider Nurse Practitioner | DX: F43.12 Post-traumatic stress disorder, chronic (principal) | CPT/HCPCS: 99214 ==

== ENCOUNTER 2021-08-31 07:54 | Outpatient (CLI) | payer MEDICAID, SELFPAY ==
--- NOTE | 2021-08-31 08:00 | US_ITS ---
WS: [id number] RIGHT UPPER QUADRANT ULTRASOUND HISTORY: RUQ ABDOMINAL PAIN COMPARISON: 02/09/2010 Liver: 21.3 cm in length. Markedly enlarged liver. Mild diffuse coarse echotexture and heterogeneity. No mass or bile duct dilatation. Portal Vein: Normal hepatopetal flow with monophasic waveform. Gallbladder: Prior cholecystectomy. CBD: 0.6 cm Pancreas: Normal size and echogenicity. Right kidney: 14.2 cm in length. Normal size and echogenicity. No hydronephrosis or mass. Aorta and IVC: Unremarkable abdominal aorta and IVC. No ascites. US/US abdomen limited [id number] IMPRESSION: 1. Marked hepatomegaly and mild hepatic steatosis. 2. No biliary duct dilatation. 3. Prior cholecystectomy.
== END 2021-08-31 07:55 | disposition home or self-care (01) ==
LOC: US 07:55
PROVIDERS: PCP Family Medicine; Visit Provider Registered Nurse
DX: R10.11 Right upper quadrant pain (principal); R16.0 Hepatomegaly, not elsewhere classified; K76.0 Fatty (change of) liver, not elsewhere classified; Z90.49 Acquired absence of other specified parts of digestive tract
CPT/HCPCS: 76705

== ENCOUNTER → 2021-09-27 10:30 | Outpatient (BNVA) | payer MEDICAID, SELFPAY | PROVIDERS: PCP Family Medicine; Visit Provider Nurse Practitioner | DX: F43.12 Post-traumatic stress disorder, chronic (principal) | CPT/HCPCS: 99214 ==

== ENCOUNTER → 2021-11-21 11:15 | Outpatient (BNVA) | payer MEDICAID, SELFPAY | PROVIDERS: PCP Family Medicine; Visit Provider Specialist | DX: G40.309 Generalized idiopathic epilepsy and epileptic syndromes, not intractable, without status epilepticus (principal); N20.9 Urinary calculus, unspecified | CPT/HCPCS: 99214 ==

== ENCOUNTER → 2021-12-28 12:48 | Outpatient (BNVA) | payer MEDICAID, SELFPAY | PROVIDERS: PCP Family Medicine; Visit Provider Nurse Practitioner | DX: F43.12 Post-traumatic stress disorder, chronic (principal) | CPT/HCPCS: 99214 ==

== ENCOUNTER 2022-02-02 10:09 | Outpatient (CLI) | payer MEDICAID, SELFPAY ==
--- NOTE | 2022-02-02 09:45 | XR_ITS ---
WS: [id number] KUB, AP view, 02/02/2022 Clinical Data: Urolithiasis Comparison: KUB, 06/27/2021. Findings: No abnormal intraabdominal masses are seen. There is no dilatated small bowel or evidence of obstruct ion. There is a 0.8 cm calcification overlying the lower pole of the right kidney unchanged. There is feca l material and bowel gas which obscure detail over both kidneys. There are clips in the right upper q uadrant from a cholecystectomy. XR/XR KUB [id number] Impression: No change in right renal calculus.
== END 2022-02-02 10:10 | disposition home or self-care (01) ==
LOC: RAD 10:15
PROVIDERS: PCP Family Medicine; Visit Provider Nurse Practitioner Family
DX: N20.9 Urinary calculus, unspecified (principal); N20.0 Calculus of kidney; R39.15 Urgency of urination
CPT/HCPCS: 74018; 81003; 87086; 99213

== ENCOUNTER → 2022-03-29 13:45 | Outpatient (BNVA) | payer MEDICAID, SELFPAY | PROVIDERS: PCP Family Medicine; Visit Provider Specialist | DX: G40.309 Generalized idiopathic epilepsy and epileptic syndromes, not intractable, without status epilepticus (principal) | CPT/HCPCS: 99213; 99214 ==

== ENCOUNTER → 2022-04-30 10:04 | Outpatient (BNVA) | payer MEDICAID, SELFPAY | PROVIDERS: PCP Family Medicine; Referring Provider Specialist; Visit Provider Specialist | DX: G40.309 Generalized idiopathic epilepsy and epileptic syndromes, not intractable, without status epilepticus (principal) | CPT/HCPCS: 95816 ==

== ENCOUNTER → 2022-05-29 08:09 | Outpatient (BNVA) | payer MEDICAID, SELFPAY | PROVIDERS: PCP Family Medicine; Visit Provider Specialist | DX: G40.309 Generalized idiopathic epilepsy and epileptic syndromes, not intractable, without status epilepticus (principal); N20.0 Calculus of kidney | CPT/HCPCS: 99213; 99214 ==

== ENCOUNTER → 2022-06-12 10:30 | Outpatient (BNVA) | payer MEDICAID, SELFPAY | PROVIDERS: PCP Family Medicine; Referring Provider Specialist; Visit Provider Specialist | DX: G40.309 Generalized idiopathic epilepsy and epileptic syndromes, not intractable, without status epilepticus (principal) | CPT/HCPCS: 95812; 95816 ==

== ENCOUNTER 2022-08-02 15:31 | Outpatient (CLI) | payer MEDICAID, SELFPAY ==
--- NOTE | 2022-08-02 15:56 | XR_ITS ---
WS: [id number] Exam: XR foot LT min 3V* [id number] Date/Time of Exam: 08/02/2022 4:09 PM Reason For Exam: CHRONIC PAIN LEFT ANKLE No fracture or dislocation. No soft tissue foreign bodies are seen. Articular relationships are intac t. XR/XR foot LT min 3V* [id number] IMPRESSION: 1. No fracture or other significant finding.
== END 2022-08-02 15:32 | disposition home or self-care (01) ==
LOC: RAD 15:35
PROVIDERS: PCP Family Medicine; Visit Provider Nurse Practitioner Family
DX: M25.572 Pain in left ankle and joints of left foot (principal); G89.29 Other chronic pain
CPT/HCPCS: 73630

== ENCOUNTER 2022-08-07 13:06 | Outpatient (CLI) | payer MEDICAID, SELFPAY ==
--- NOTE | 2022-08-07 13:12 | XRR_ITS ---
PROCEDURE INFORMATION: Exam: XR Abdomen Exam date and time: 08/07/2022 1:13 PM Age: 52 years old Clinical indication: Condition or disease; Kidney or ureter condition; Calculus (stone) in kidney; Prior surgery; Surgery type: Gb; Additional info: Urolithiasis, kub @ [facility] 08/07/22 @ 100 appointment to follow TECHNIQUE: Imaging protocol: Radiologic exam of the abdomen. Views: Frontal supine view of the abdomen. 1 View. COMPARISON: CR XR KUB [id number] 02/02/2022 10:33 AM FINDINGS: Gastrointestinal tract: Normal. No bowel dilation. Organs: Right kidney 8-9 mm calculus again suspected, similar to prior exam. Bones/joints: Unremarkable. XR/XR KUB [id number] IMPRESSION: Right kidney 8-9 mm calculus again suspected, similar to prior exam.
== END 2022-08-07 13:07 | disposition home or self-care (01) ==
LOC: RAD 13:06
PROVIDERS: PCP Family Medicine; Visit Provider Urology
DX: N20.9 Urinary calculus, unspecified (principal)
CPT/HCPCS: 74018; 81003; 99213

== ENCOUNTER 2022-08-23 13:33 | Outpatient (CLI) | payer MEDICAID, SELFPAY ==
--- NOTE | 2022-08-23 13:39 | MM_ITS ---
WS: [id number] BILATERAL 3D TOMOSYNTHESIS DIGITAL SCREENING MAMMOGRAPHY WITH CAD CLINICAL INFORMATION: SCREENING HISTORY: Screening mammogram. COMPARISON: June 30, 2020 TECHNIQUE: Bilateral CC and MLO views. FINDINGS: Scattered fibroglandular densities bilaterally. No suspicious focal mass, asymmetry, calcifications, or architectural distortion. No evidence of malignancy. MM/[place] [id number] IMPRESSION: BI-RADS: 1-Negative FOLLOW UP: 1 Year Follow-up Recommend return to annual screening mammography.
== END 2022-08-23 13:34 | disposition home or self-care (01) ==
LOC: RAD 13:35
PROVIDERS: PCP Family Medicine; Visit Provider Nurse Practitioner Family
DX: Z12.31 Encounter for screening mammogram for malignant neoplasm of breast (principal)
CPT/HCPCS: 77063; 77067

== ENCOUNTER → 2022-08-27 10:11 | Outpatient (BNVA) | payer MEDICAID, SELFPAY | PROVIDERS: PCP Family Medicine; Visit Provider Podiatrist Foot & Ankle Surgery | DX: G57.62 Lesion of plantar nerve, left lower limb (principal); M76.72 Peroneal tendinitis, left leg | CPT/HCPCS: 73600; 73630; 99204 ==

== ENCOUNTER 2022-09-21 16:35 | Emergency (ER) | payer MEDICAID, SELFPAY ==
[2022-09-21 16:41] VITALS: BP 161/82; PULSE 71; RESP 16; TEMP 36.8; O2SAT 95; BMI 46.8
--- NOTE | 2022-09-21 17:26 | XRR_ITS ---
PROCEDURE INFORMATION: Exam: XR Right Knee Exam date and time: 09/21/2022 5:32 PM Age: 52 years old Clinical indication: Pain; Knee; Right; Additional info: Pain with motion and palpation TECHNIQUE: Imaging protocol: Radiologic exam of the Right knee. Views: 1 or 2 views. COMPARISON: No relevant prior studies available. FINDINGS: Bones/joints: Large suprapatellar joint effusion. Mild to moderate degenerative narrowing of the medial and lateral joint compartments with minimal osteophyte formation. No acute fracture or other acute osseous abnormality. Soft tissues: The soft tissues are unremarkable as demonstrated. XR/XR knee RT 1-2V [id number] IMPRESSION: 1. Large suprapatellar joint effusion. 2. Mild mild to moderate degenerative arthritis of the right knee. 3. No acute fracture demonstrated.
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
[2022-09-21] MEDS: ketorolac 60 mg/2 mL INJ IM (18:32)
[2022-09-21 20:08] LABS: Basophils % 0.6 %; Eosinophils # 0.2 10^3/uL (0.0-0.8); Eosinophils % 2.6 %; Hematocrit 41.9 % (37.0-47.0); Hemoglobin 13.3 g/dL (11.5-15.3); Lymphocytes # 2.4 10^3/uL (0.8-4.8); Lymphocytes % 35.8 %; Mean Corpuscular HGB Conc 31.7 g/dL (30.0-36.0); Mean Corpuscular Hemoglobin 29.6 pg (28.0-34.0); Mean Corpuscular Volume 93.3 fl (81-99); Mean Platelet Volume 10.3 fL (7.4-10.4); Monocytes # 0.4 10^3/uL (0.2-0.9); Monocytes % 6.3 %; Neutrophils % 54.4 %; Nucleated Red Blood Cells % 0 %; Platelet Count 227 10^3/cmm (130-400); Red Blood Count 4.49 10^6/uL (4.1-5.3); Red Cell Distribution Width 12.6 % (12.1-15.1); White Blood Count 6.8 10^3/uL (4.0-10.0)
[2022-09-21 20:38] LABS: Alanine Aminotransferase 26 U/L (0-33); Albumin Level 4.2 g/dL (3.5-5.2); Alkaline Phosphatase 64 U/L (35-105); Aspartate Amino Transferase 22 U/L (0-32); Blood Urea Nitrogen 15 mg/dL (6-20); Calcium 10.2 mg/dL (8.5-10.5); Carbon Dioxide 28 mmol/L (22-29); Chloride 101 mmol/L (98-107); Globulin 2.7 g/dL (1.3-4.6); Glucose 112 mg/dL (65-115); Osmolality Calculated 286 mOsm/kg (285-295); Sodium 137 mmol/L (136-145); Total Bilirubin 0.2 mg/dL (0.15-1.2); Total Protein 6.9 g/dL (6.6-8.7)
[2022-09-21 21:01] LABS: Slide Review Slide Review Perform
[2022-09-21 22:05] LABS: RBC Synovial Fluid 1032 10^3/uL (0-0); Synovial Fluid Polynuclear # 0.251 10^3/uL; WBC Synovial Fluid 2062 /uL (0-150)
[2022-09-21 22:07] LABS: Appearance Synovial Fluid BLOODY (CLEAR); Color Synovial Fluid RED (PALE YELLOW); Crystals, Fluid See Path Consult; PATH Referal YES
[2022-09-21 22:08] LABS: Cyto Order Verification No Order
[2022-09-21 23:18] VITALS: BP 118/59; PULSE 74; RESP 16; O2SAT 93
== END 2022-09-21 23:19 | disposition home or self-care (01) ==
PROVIDERS: Emergency Medicine; Emergency Provider Nurse Practitioner; PCP Family Medicine
DX: M25.061 Hemarthrosis, right knee (principal); M13.861 Other specified arthritis, right knee; E78.5 Hyperlipidemia, unspecified
CPT/HCPCS: 36415; 73560; 80053; 80503; 85025; 85651; 86140; 87070; 87075; 87205; 89050; 96372; 99284; J1885

== ENCOUNTER → 2022-10-02 08:17 | Outpatient (BNVA) | payer MEDICAID, SELFPAY | PROVIDERS: PCP Nurse Practitioner Family; Visit Provider Specialist | DX: G40.309 Generalized idiopathic epilepsy and epileptic syndromes, not intractable, without status epilepticus (principal); M25.461 Effusion, right knee; N20.1 Calculus of ureter | CPT/HCPCS: 99214 ==

== ENCOUNTER → 2022-10-03 13:33 | Outpatient (BNVA) | payer MEDICAID, SELFPAY | PROVIDERS: PCP Nurse Practitioner Family; Referring Provider Specialist; Visit Provider Nurse Practitioner Family | DX: M76.72 Peroneal tendinitis, left leg (principal); M25.461 Effusion, right knee; S89.91XA Unspecified injury of right lower leg, initial encounter; W19.XXXA Unspecified fall, initial encounter | CPT/HCPCS: 80503; 87070; 87075; 87205; 89050; 99214 ==

== ENCOUNTER → 2022-10-22 12:54 | Outpatient (BNVA) | payer MEDICAID, SELFPAY | PROVIDERS: PCP Nurse Practitioner Family; Visit Provider Podiatrist Foot & Ankle Surgery | DX: G57.62 Lesion of plantar nerve, left lower limb (principal); M76.72 Peroneal tendinitis, left leg; M76.71 Peroneal tendinitis, right leg | CPT/HCPCS: 99213 ==

== ENCOUNTER → 2022-10-23 11:48 | Outpatient (BNVA) | payer MEDICAID, SELFPAY | PROVIDERS: PCP Nurse Practitioner Family; Visit Provider Nurse Practitioner Family | DX: M25.461 Effusion, right knee (principal); M25.561 Pain in right knee | CPT/HCPCS: 73560; 73565; 99213 ==

== ENCOUNTER 2022-11-21 14:40 | Outpatient (CLI) | payer MEDICAID, SELFPAY ==
--- NOTE | 2022-11-21 14:53 | XR_ITS ---
WS: [id number] Left knee, 3 views, 11/21/2022 Clinical Data: CHRONIC PAIN OF LEFT KNEE Comparison: AP both knees, right knee, 10/23/2022 Findings: No fractures or dislocations are seen. The joint spaces are normal. There is minimal sparing of the p osterior left patella. The soft tissues are unremarkable. 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
== END 2022-11-21 14:41 | disposition home or self-care (01) ==
PROVIDERS: PCP Nurse Practitioner Family; Visit Provider Nurse Practitioner Family
DX: M17.12 Unilateral primary osteoarthritis, left knee (principal); M25.562 Pain in left knee; G89.29 Other chronic pain
CPT/HCPCS: 73562

== ENCOUNTER 2022-12-12 09:49 | Outpatient (CLI) | payer MEDICAID, SELFPAY ==
--- NOTE | 2022-12-12 10:15 | MR_ITS ---
WS: [id number] MRI RIGHT KNEE HISTORY: pain COMPARISON: 10/23/2022 radiograph Anterior cruciate ligament: Normal but thin ACL. Posterior cruciate ligament: Intact. Medial collateral ligament: Intact. Posterior lateral corner structures: Intact. Medial menisci: Mild surface fraying of the posterior horn. Intrasubstance degeneration but no tear i dentified. Anterior horn is normal. Lateral meniscus: Intact. Normal signal, size and shape. Extensor mechanism: Distal quadriceps tendon and patellar tendons are intact. Fluid and soft tissue: Very small suprapatellar joint effusion. Fluid extends superior to the knee po sterior to the quadriceps tendon. No Mac's cyst. Osseous and articular structures: Patellofemoral compartment: Mild narrowing of patellofemoral joint space. Minimal chondromalacia. No marrow edema or fracture. Medial compartment: Mild narrowing of the medial compartment. Moderate chondromalacia. There are smal l defects involving both the weightbearing surface of the femoral condyle and the tibial plateau. No fracture or marrow edema. Lateral compartment: Mild narrowing of the lateral compartment with mild chondromalacia. No fracture or marrow edema. MR/MR knee RT wo con* [id number] IMPRESSION: 1. Very small suprapatellar joint effusion. Fluid extends superior and posteri or to the distal quadriceps tendon. 2. Mild narrowing of the medial compartment with moderate chondromalacia. 3. Mild narrowing of the lateral compartment with minimal chondromalacia. 4. No fracture or marrow edema. 5. Intrasubstance degeneration posterior horn medial meniscus.
== END 2022-12-12 09:50 | disposition home or self-care (01) ==
PROVIDERS: PCP Nurse Practitioner Family; Visit Provider Nurse Practitioner Family
DX: M25.461 Effusion, right knee (principal); M94.261 Chondromalacia, right knee
CPT/HCPCS: 73721

== ENCOUNTER → 2023-01-21 12:19 | Outpatient (BNVA) | payer MEDICAID, SELFPAY | PROVIDERS: PCP Nurse Practitioner Family; Visit Provider Podiatrist Foot & Ankle Surgery | DX: G57.62 Lesion of plantar nerve, left lower limb (principal); M76.72 Peroneal tendinitis, left leg; M76.71 Peroneal tendinitis, right leg | CPT/HCPCS: 99213 ==

== ENCOUNTER → 2023-03-13 13:02 | Outpatient (BNVA) | payer MEDICAID, SELFPAY | PROVIDERS: PCP Nurse Practitioner Family; Referring Provider Nurse Practitioner Family; Visit Provider Dermatology | DX: S90.111A Contusion of right great toe without damage to nail, initial encounter (principal); Y99.9 Unspecified external cause status | CPT/HCPCS: 11102; 17110; 99203 ==

== ENCOUNTER → 2023-07-08 13:37 | Outpatient (BNVA) | payer MEDICAID, SELFPAY | PROVIDERS: PCP Nurse Practitioner Family; Visit Provider Dermatology | DX: S90.111A Contusion of right great toe without damage to nail, initial encounter (principal); X58.XXXA Exposure to other specified factors, initial encounter; L82.1 Other seborrheic keratosis; L81.4 Other melanin hyperpigmentation; D22.5 Melanocytic nevi of trunk | CPT/HCPCS: 11102; 99213 ==

== ENCOUNTER → 2023-10-02 08:17 | Outpatient (BNVA) | payer MEDICAID, SELFPAY | PROVIDERS: PCP Nurse Practitioner Family; Visit Provider Specialist | DX: G40.309 Generalized idiopathic epilepsy and epileptic syndromes, not intractable, without status epilepticus (principal) | CPT/HCPCS: 36415; 80175; 99214 ==

== ENCOUNTER 2023-10-10 11:04 | Emergency (ER) | payer MEDICAID, SELFPAY ==
--- NOTE | 2023-10-10 11:05 | XRR_ITS ---
PROCEDURE INFORMATION: Exam: XR Left Knee Exam date and time: 10/10/2023 11:25 AM Age: 53 years old Clinical indication: Pain; Knee; Left; Additional info: Injury TECHNIQUE: Imaging protocol: Radiologic exam of the left knee. Views: 3 views. COMPARISON: CR XR knee LT 3V* [id number] 11/21/2022 3:02 PM FINDINGS: Bones/joints: No acute fracture or dislocation. Joint spaces are preserved. Soft tissues: Normal. XR/XR knee LT 3V* [id number] IMPRESSION: No acute fracture or dislocation.
[2023-10-10 11:12] VITALS: BP 191/76; PULSE 68; RESP 16; TEMP 36.8; O2SAT 96
--- NOTE | 2023-10-10 11:22 | W.ED.EXTPRO ---
HPI - Extremity Problem General: Chief complaint: Extremity Injury, Lower Stated complaint: knee pain Left Time Seen by Provider: 10/10/23 11:11 Source: patient Mode of arrival: ambulatory Limitations: no limitations History of Present Illness: 53-year-old female who states she has had some chronic knee pain states that she was walking from her car and felt her knee pop states she started having severe pain is not able to bear any weight she rates the pain a 6 out of 10 is much worse with movement denies any other injuries denies actually falling. Associated symptoms: Deny chest pain, fever(s) or rash Review of Systems Const: Denies: fever(s), chills, body aches or change in appetite ENMT: Denies: throat pain or dental pain Card: Denies: chest pain Resp: Denies: dyspnea GI: Denies: abdominal pain, nausea, vomiting or diarrhea Musc: Reports: extremity pain; Denies: neck pain or back pain Skin/Breast: Denies: rash Neuro: Denies: headache(s) PFSH ED PFSH: Medical History Psychiatric care Urolithiasis Multi stone former requiring bilateral endoscopy 2019 with temporary stents. Clear on follow-up Recommended dietary modification for stone risk reduction Hyperlipidemia Sleep apnea, unspecified Post-traumatic stress disorder, chronic Surgical History History of colonoscopy History of hemorrhoidectomy (~02/2020) Status post laser lithotripsy of ureteral calculus S/P ureteral stent placement ureteroscopy, bilateral retrograde pyelogram, laser S/P extracorporeal shock wave therapy Hx of cholecystectomy H/O knee surgery arthroscopy lt knee H/O: hysterectomy Family History Father Diabetes Mother No problems noted. Other Cancer Hypertension Denies family history of CAD (coronary artery disease) Anesthesia complication Bleeding disorder Stroke Social History Smoking and tobacco/nicotine status: never used tobacco/nicotine Second hand smoke exposure: No Alcohol intake: never Substance/Drug Use: never Marital status: Current occupational status: disabled Physical Exam Const: COMMON NORMALS: no acute distress, patient oriented x3 and healthy appearing HENMT: COMMON NORMALS: normocephalic and atraumatic HEAD & SCALP: normocephalic and atraumatic Neck/C-Spine: COMMON NORMALS: full ROM and supple Chest: COMMONS NORMALS: normal inspection of the chest Resp: COMMON NORMALS: normal respiratory effort Cardio: COMMON NORMALS: regular rate, regular rhythm and No murmurs present (Cardio) RATE: regular rate RHYTHM: regular rhythm Extremity: NARRATIVE EXTREMITY EXAM: Tenderness noted to left knee. Some pain with range of motion. Neuro: COMMON NORMALS: patient oriented x3, moves all extremities and no focal motor deficits Psych: COMMON NORMALS: mental status grossly normal, Normal thought process present and cooperative THOUGHT PROCESS: Normal thought process present Skin: COMMON NORMALS: no rashes or lesions noted and no wounds GENERAL SKIN EXAM: no rashes or lesions noted Course Vital Signs: Vital signs: Vital Signs Temperature 98.2 F 10/10/23 11:12 Pulse Rate 68 10/10/23 11:12 Respiratory Rate 16 10/10/23 11:12 Blood Pressure 191/76 10/10/23 11:12 Pulse Oximetry 96 10/10/23 11:12 Oxygen Delivery Me thod Room Air 10/10/23 11:12 MDM - Extremity (Nontraumatic) Medical Decision Making Patient presents here with left knee pain x-ray here shows no fracture patient placed in knee immobilizer given crutches weight-bear as tolerated patient is to follow-up with orthopedics she understands agrees to plan. Medical Records I reviewed the patient's medical records. Lab Data Radiology Impressions Knee X-Ray 10/10/23 11:05 IMPRESSION: No acute fracture or dislocation. All radiology interpretation(s) finalized by discharge Discharge Plan Discharge Patient Disposition: Home Clinical Impression: Left knee pain Qualifiers: Chronicity: unspecified Qualified Code(s): M25.562 - Pain in left knee Condition: Stable Prescriptions: No Action fenofibrate 160 mg tablet 160 mg PO DAILY Ultra CoQ10 75 mg capsule 75 mg PO DAILY Rx Instructions: 300MG polyethylene glycol 3350 [Miralax] 17 gram/dose powder 17 g PO DAILY hydrochlorothiazide 25 mg tablet 25 mg PO DAILY Qty: 90 3RF melatonin 5 mg capsule 3 mg PO .hs lovastatin 20 mg tablet 40 mg PO DAILY Rx Instructions: 40 mg PO daily; cholecalciferol (vitamin D3) 25 mcg (1,000 unit) capsule 1,000 unit PO DAILY gabapentin 300 mg capsule 300 mg PO .HS lamotrigine [Lamictal] 200 mg tablet 200 mg PO BID 90 Days Qty: 180 3RF triamcinolone acetonide 0.1 % cream 1 applic topical DAILY acyclovir 800 mg tablet 800 mg PO QID mupirocin 2 % ointment 1 applic topical BID meloxicam 15 mg tablet 15 mg PO DAILY 90 Days Qty: 30 3RF allopurinol 300 mg tablet See Rx Instructions .ROUTE .COMPLEX Qty: 90 3RF Dose Instruction: TAKE 1 TABLET BY MOUTH DAILY. Rx Instructions: TAKE 1 TABLET BY MOUTH DAILY. aripiprazole [Abilify] 2 mg tablet 2 mg PO DAILY Qty: 30 2RF fluoxetine 20 mg capsule See Rx Instructions .ROUTE .COMPLEX Qty: 30 2RF Dose Instruction: TAKE ONE CAPSULE BY MOUTH DAILY Rx Instructions: TAKE ONE CAPSULE BY MOUTH DAILY trazodone 100 mg tablet See Rx Instructions .ROUTE .COMPLEX Qty: 120 2RF Dose Instruction: TAKE FOUR TABLETS BY MOUTH AT BEDTIME Rx Instructions: TAKE FOUR TABLETS BY MOUTH AT BEDTIME Discharge Orders: Discharge ED (Routine); Ordered 10/10/23 Ordered By: Sheila Mendez Referrals: Narda Brooks MD [Physician] - 1-3 days Bj Limon FNP [Primary Care Provider] - Discharge Diet: Advance as tolerated Discharge Activity: Resume usual activity Patient Instructions: Knee Pain (ED) Coding Level of Care Code ED Threading Machine Setter for John Joy
--- NOTE | 2023-10-10 12:52 | DCPLANNER ---
Message was sent to ortho on 10/10/23 at 0575. [facility] to contact patient for an appt.
== END 2023-10-10 12:14 | disposition home or self-care (01) ==
PROVIDERS: Emergency Provider Emergency Medicine; PCP Nurse Practitioner Family
DX: M25.562 Pain in left knee (principal); E78.5 Hyperlipidemia, unspecified
CPT/HCPCS: 29530; 73562; 99283; E0114

== ENCOUNTER → 2023-11-04 13:36 | Outpatient (BNVA) | payer MEDICAID, SELFPAY | PROVIDERS: PCP Nurse Practitioner Family; Referring Provider Emergency Medicine; Visit Provider Specialist | DX: M17.0 Bilateral primary osteoarthritis of knee; E66.01 Morbid (severe) obesity due to excess calories; Z68.42 Body mass index [BMI] 45.0-49.9, adult | CPT/HCPCS: 73560; 73565; 99204 ==

== ENCOUNTER 2023-11-26 13:35 | Outpatient (CLI) | payer MEDICAID, SELFPAY ==
--- NOTE | 2023-11-26 13:45 | MR_ITS ---
WS: [id number] MRI LEFT KNEE NONCONTRAST TECHNIQUE: Axial PD, coronal PD fat sat, coronal PD, sagittal PD, and sagittal PD fat-sat images obta ined. CLINICAL INFORMATION: left knee pain COMPARISON: None. FINDINGS: Distal quadriceps and patella tendons are intact. Hypertrophic patella. Moderate to advanced tricompa rtmental arthritis. Tiny suprapatellar effusion. Small amount of prepatellar soft tissue edema. Grade III chondromalacia patella. Normal medial and lateral patellar retinaculum. Normal popliteal fossa. Medial and collateral ligaments appear intact. Chronic thinning of the medial and lateral meniscus. N o acute appearing meniscal tears. Moderate chondromalacia medial and lateral joint compartments. No s ubchondral edema. IMPRESSION: 1. Normal ACL and PCL. 2. Chronic thinning of the medial and lateral meniscus. No acute appearing meniscal tears. 3. Grade III chondromalacia patella. Small suprapatellar effusion. 4. Medial and lateral collateral ligaments appear intact. 5. Moderate to advanced tricompartment arthritis. 6. No other acute findings. Outbridge grading: grade III: partial-thickness cartilage loss with focal ulceration
== END 2023-11-26 13:36 | disposition home or self-care (01) ==
LOC: RAD 13:35
PROVIDERS: PCP Nurse Practitioner Family; Visit Provider Specialist
DX: M25.562 Pain in left knee (principal); R29.90 Unspecified symptoms and signs involving the nervous system; G40.309 Generalized idiopathic epilepsy and epileptic syndromes, not intractable, without status epilepticus
CPT/HCPCS: 73721; 95816

== ENCOUNTER → 2024-01-08 09:55 | Outpatient (BNVA) | payer MEDICAID, SELFPAY | PROVIDERS: PCP Nurse Practitioner Family; Visit Provider Specialist | DX: G31.84 Mild cognitive impairment of uncertain or unknown etiology (principal); G40.309 Generalized idiopathic epilepsy and epileptic syndromes, not intractable, without status epilepticus; F43.12 Post-traumatic stress disorder, chronic; G47.30 Sleep apnea, unspecified | CPT/HCPCS: 99214 ==

== ENCOUNTER → 2024-01-09 10:36 | Outpatient (BNVA) | payer MEDICAID, SELFPAY | PROVIDERS: PCP Nurse Practitioner Family; Visit Provider Podiatrist Foot & Ankle Surgery | DX: M19.071 Primary osteoarthritis, right ankle and foot; M19.072 Primary osteoarthritis, left ankle and foot; Q66.221 Congenital metatarsus adductus, right foot; Q66.222 Congenital metatarsus adductus, left foot | CPT/HCPCS: 99213 ==

== ENCOUNTER → 2024-01-31 15:41 | Outpatient (BNVA) | payer MEDICAID, SELFPAY | PROVIDERS: PCP Nurse Practitioner Family; Visit Provider Nurse Practitioner | DX: Z79.899 Other long term (current) drug therapy (principal); F43.12 Post-traumatic stress disorder, chronic | CPT/HCPCS: 80061; 83036 ==

== ENCOUNTER 2024-05-14 21:25 | Emergency (ER) | payer MEDICAID, SELFPAY ==
[2024-05-14 21:31] VITALS: BP 174/85; PULSE 79; RESP 20; TEMP 36.8; O2SAT 95; BMI 49.6
--- NOTE | 2024-05-14 21:45 | ED_ITS ---
HPI - General Adult General: Chief complaint: General Medical Stated complaint: Upper abd pain Time Seen by Provider: 05/14/24 21:35 History of Present Illness: 53-year-old female was reaching for a it em on the top of her car when she felt a sudden sharp pain in her left upper abdomen. Patient reports movement exacerbates the pain at this time. Patient denies any falls or injury. Patient reports no high fever, nausea vomiting, or changes in bowels. Patient appears nontoxic. Patient does appear in moderate pain. Related Data Home Medications Medication Instructions Recorded Confirmed cholecalciferol (vitamin D3) 25 1,000 unit PO DAILY 12/16/19 01/31/24 mcg (1,000 unit) capsule lovastatin 20 mg tablet 40 mg PO DAILY 12/16/19 01/31/24 melatonin 5 mg capsule 3 mg PO .hs 12/16/19 01/31/24 fenofibrate 160 mg tablet 160 mg PO DAILY 03/07/20 01/31/24 coenzyme Q10 75 mg capsule (Ultra 75 mg PO DAILY 02/02/22 01/31/24 CoQ10) polyethylene glycol 3350 17 17 g PO DAILY 02/02/22 01/31/24 gram/dose oral powder (Miralax) gabapentin 300 mg capsule 300 mg PO .HS 08/07/22 01/31/24 acyclovir 800 mg tablet 800 mg PO QID 10/02/23 01/31/24 mupirocin 2 % topical ointment 1 applic topical BID 10/02/23 01/31/24 triamcinolone acetonide 0.1 % 1 applic topical DAILY 10/02/23 01/31/24 topical cream cetirizine 10 mg capsule (All Day 10 mg PO DAILY PRN 10/10/23 01/31/24 Allergy (cetirizine)) omeprazole 20 mg capsule,delayed 20 mg PO DAILY 10/10/23 01/31/24 release Previous Rx's Medication Instructions Recorded hydrochlorothiazide 25 mg tablet 25 mg PO DAILY #90 tabs 02/02/22 meloxicam 15 mg tablet 15 mg PO DAILY 3 months #30 tabs 01/21/23 allopurinol 300 mg tablet See Rx Instructions .Route 02/13/23 .COMPLEX #90 tabs lamotrigine 200 mg tablet 200 mg PO BID 90 days #180 tabs 01/08/24 (Lamictal) trazodone 100 mg tablet See Rx Instructions .Route 04/14/24 .COMPLEX #120 tabs aripiprazole 2 mg tablet (Abilify) 2 mg PO DAILY #30 tabs 05/14/24 fluoxetine 40 mg capsule (Prozac) 40 mg PO DAILY #30 caps 05/14/24 hydrocodone 5 mg-acetaminophen 325 1 tab PO Q6H PRN pain #10 tabs 05/14/24 mg tablet Allergies Allergy/AdvReac Type Severity Reaction Status Date / Time Penicillins Allergy Severe ALGY-Rash Verified 01/31/24 14:55 epinephrine Allergy Intermediate Extreme Verified 01/31/24 14:55 shakes & weakness. codeine Allergy Unknown Verified 01/31/24 14:55 Review of Systems General: Reports: 10 or more systems reviewed and unremarkable except in HPI and below GI: Reports: abdominal pain PFSH ED PFSH: Medical History (Updated 05/14/24 @ 21:51 by JULISSA Batista) On combination antipsychotic drug therapy Psychiatric care Urolithiasis Multi stone former requiring bilateral endoscopy 2019 with temporary stents. Clear on follow-up Recommended dietary modification for stone risk reduction Hyperlipidemia Sleep apnea, unspecified Post-traumatic stress disorder, chronic Surgical History History of colonoscopy History of hemorrhoidectomy (~02/2020) Status post laser lithotripsy of ureteral calculus S/P ureteral stent placement ureteroscopy, bilateral retrograde pyelogram, laser S/P extracorporeal shock wave therapy Hx of cholecystectomy H/O knee surgery arthroscopy lt knee H/O: hysterectomy Family History Father Diabetes Mother No problems noted. Other Cancer Hypertension Denies family history of CAD (coronary artery disease) Anesthesia complication Bleeding disorder Stroke Social History Smoking and tobacco/nicotine status: never used tobacco/nicotine Second hand smoke exposure: No Alcohol intake: never Substance/Drug Use: never Marital status: Current occupational status: disabled Physical Exam Const: COMMON NORMALS: alert HENMT: COMMON NORMALS: normocephalic HEAD & SCALP: normocephalic Neck/C-Spine: COMMON NORMALS: full ROM Resp: COMMON NORMALS: normal respiratory effort and clear to auscultation bilaterally AUSCULTATION: clear to auscultation bilaterally Cardio: COMMON NORMALS: regular rate RATE: regular rate GI: AUSCULTATION: Yes normoactive bowel sounds PALPATION: Yes Tenderness to palpation present (GI) (Left upper abdomen) Back/Pelvis: COMMON NORMALS: thoracic and lumbar spine normal to inspection Extremity: COMMON NORMALS: full ROM Neuro: SENSORIUM/ORIENTATION: Yes alert Skin: COMMON NORMALS: turgor normal GENERAL SKIN EXAM: turgor normal Course Vital Signs: Vital signs: Vital Signs Temperature 98.3 F 05/14/24 21:31 Pulse Rate 79 05/14/24 21:31 Respiratory Rate 20 H 05/14/24 21:31 Blood Pressure 174/85 05/14/24 21:31 Pulse Oximetry 95 05/14/24 21:31 Oxygen Delivery Me thod Room Air 05/14/24 21:31 MDM - General Adult Medical Decision Making Patient comes in today for injury to the left upper abdomen. Patient was reaching for something on top of her car when she felt a sudden sharp pain there. Patient appears nontoxic. Patient was all extremities well. Patient does have some decreased range of motion when reaching up with her left arm. Patient reports pain to left upper abdomen with movement. Differential diagnosis includes not limited to muscle strain, rib fracture, intervertebral disc disease, facet arthritis. Tenderness is noted on palpation of the left upper abdomen. Bowel sounds present. Skin is warm and dry. Muscle tightness is noted to the left mid paraspinous muscles of the back. Believe patient most likely has a muscle strain. Recommend activity as tolerated. Medication for pain. Follow-up as needed. No radiology studies performed this visit Discharge Plan Discharge Patient Disposition: Home Clinical Impression: Strain of abdominal muscle Qualifiers: Encounter type: initial encounter Qualified Code(s): S39.011A - Strain of muscle, fascia and tendon of abdomen, initial encounter Condition: Stable Prescriptions: New hydrocodone-acetaminophen 5-325 mg tablet 1 tab PO Q6H PRN (Reason: pain) Qty: 10 0RF No Action fenofibrate 160 mg tablet 160 mg PO DAILY Ultra CoQ10 75 mg capsule 75 mg PO DAILY Rx Instructions: 300MG polyethylene glycol 3350 [Miralax] 17 gram/dose powder 17 g PO DAILY hydrochlorothiazide 25 mg tablet 25 mg PO DAILY Qty: 90 3RF melatonin 5 mg capsule 3 mg PO .hs lovastatin 20 mg tablet 40 mg PO DAILY Rx Instructions: 40 mg PO daily; cholecalciferol (vitamin D3) 25 mcg (1,000 unit) capsule 1,000 unit PO DAILY lamotrigine [Lamictal] 200 mg tablet 200 mg PO BID 90 Days Qty: 180 3RF gabapentin 300 mg capsule 300 mg PO .HS triamcinolone acetonide 0.1 % cream 1 applic topical DAILY acyclovir 800 mg tablet 800 mg PO QID mupirocin 2 % ointment 1 applic topical BID meloxicam 15 mg tablet 15 mg PO DAILY 90 Days Qty: 30 3RF omeprazole 20 mg capsule,delayed release(DR/EC) 20 mg PO DAILY All Day Allergy (cetirizine) 10 mg capsule 10 mg PO DAILY PRN allopurinol 300 mg tablet See Rx Instructions .ROUTE .COMPLEX Qty: 90 3RF Dose Instruction: TAKE 1 TABLET BY MOUTH DAILY. Rx Instructions: TAKE 1 TABLET BY MOUTH DAILY. trazodone 100 mg tablet See Rx Instructions .ROUTE .COMPLEX Qty: 120 2RF Dose Instruction: TAKE FOUR TABLETS BY MOUTH AT BEDTIME Rx Instructions: TAKE FOUR TABLETS BY MOUTH AT BEDTIME fluoxetine [Prozac] 40 mg capsule 40 mg PO DAILY Qty: 30 2RF aripiprazole [Abilify] 2 mg tablet 2 mg PO DAILY Qty: 30 2RF Discharge Orders: Discharge ED (Routine); Ordered 05/14/24 Ordered By: Isac Orourke Referrals: Bj Limon, JULISSA [Primary Care Provider] - Discharge Diet: Usual diet Discharge Activity: Increase activity as tolerated Patient Instructions: Muscle Strain (ED) Activity Restrictions/Additional Instructions: Use ice or heat to the area of for comfort. Use acetaminophen or ibuprofen as needed for pain and inflammation. Use hydrocodone for severe pain. Follow-up with primary care in 2 to 3 days for recheck. Return to ED for new concerns. Coding Level of Care Code ED Metal Fabricating Supervisor for John Joy
[2024-05-14 22:21] VITALS: BP 160/78; PULSE 68; RESP 16; O2SAT 97
[2024-05-14 22:24] VITALS: BP 160/78; PULSE 68; RESP 16; TEMP 36.8; O2SAT 97
[2024-05-14] MEDS: HYDROcodone-acetaminophen 7.5-325 mg Tablet 1 TAB PO (22:25)
== END 2024-05-14 22:25 | disposition home or self-care (01) ==
PROVIDERS: Emergency Provider Nurse Practitioner Family; PCP Nurse Practitioner Family
DX: S39.011A Strain of muscle, fascia and tendon of abdomen, initial encounter (principal); E78.5 Hyperlipidemia, unspecified; X50.9XXA Other and unspecified overexertion or strenuous movements or postures, initial encounter
CPT/HCPCS: 99283

== ENCOUNTER → 2024-07-06 13:12 | Outpatient (BNVA) | payer MEDICAID, SELFPAY | PROVIDERS: PCP Nurse Practitioner Family; Visit Provider Podiatrist Foot & Ankle Surgery | DX: Q66.221 Congenital metatarsus adductus, right foot (principal); Q66.222 Congenital metatarsus adductus, left foot; M19.071 Primary osteoarthritis, right ankle and foot; M19.072 Primary osteoarthritis, left ankle and foot | CPT/HCPCS: 99213 ==

== ENCOUNTER → 2024-07-08 09:57 | Outpatient (BNVA) | payer MEDICAID, SELFPAY | PROVIDERS: PCP Nurse Practitioner Family; Visit Provider Nurse Practitioner Family | DX: L82.1 Other seborrheic keratosis (principal); L81.4 Other melanin hyperpigmentation; D22.5 Melanocytic nevi of trunk; D22.72 Melanocytic nevi of left lower limb, including hip | CPT/HCPCS: 99213 ==

== ENCOUNTER → 2024-07-13 10:49 | Outpatient (BNVA) | payer MEDICAID, SELFPAY | PROVIDERS: PCP Nurse Practitioner Family; Visit Provider Specialist | DX: M16.12 Unilateral primary osteoarthritis, left hip (principal); E66.01 Morbid (severe) obesity due to excess calories; Z68.42 Body mass index [BMI] 45.0-49.9, adult | CPT/HCPCS: 73502; 99214 ==

== ENCOUNTER → 2024-07-27 13:23 | Outpatient (BNVA) | payer MEDICAID, SELFPAY | PROVIDERS: PCP Nurse Practitioner Family; Visit Provider Specialist | DX: M25.561 Pain in right knee; M25.562 Pain in left knee; M17.0 Bilateral primary osteoarthritis of knee | CPT/HCPCS: 73560; 73565; 99214 ==

== ENCOUNTER 2025-04-29 10:52 | Emergency (ER) | payer MEDICAID, SELFPAY ==
[2024-09-10 10:22] VITALS: BP 152/69; BMI 48.2
--- OUTSIDE RECORDS SUMMARY | 2025-04-29 11:01 | XMS_ITS | Encounter Summary ---
Author Organization [facility] Address [address] [place] [address] Care Team Providers Care Crane Operator Name Role Phone Jelly Bahena Primary Care Provider [phone] Encounter Details Date Type Department Care Team (Late st Contact Info) Description 01/04/2016 Nurse Triage Report [id number] ABSTRACTION Carlene Sanches RN Social History Tobacco Use Types Packs/Day Years Used Date Smoking Tobacco: Never Smokeless Tobacco: Never Alcohol Use Standard Drinks/Week Comments No 0 (1 standard drink = 0.6 oz pur e alcohol) Comments No Sex and Gender Information Value Date Recorded Sex Assigned at Not on file 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 Report feedback to Dr. Delarosa Associated Symptoms: vomiting every 10 minutes , shaking, last void x prior to surgery Onset: x 5 hours Location: GI Pain Assessment: 1 - 10 with 10 being the most severe pain 7 Treatment so far for current presenting problem: hydrocodone History (Clinical Problems): lithrotripsy procedure today approximately x 8.5 hours ago (seizure) Medications: zonisamide, eszopiclone, aripiprazole, vitamins, zenlafaxine Medication reactions: codeine, PCN <<<<<<<< TRIAGE NOTE >>>>>>>> Triage Note: Green Building Architect Carlene Bradshaw added this note on Jan 04 2016 8:37PM: Daughter planning to take pt to [facility] ED from [facility] where they are currently in [place]. <<<<<<<< TRIAGE/OUTCOME >>>>>>>> Guideline Title: Postoperative Problems Recommended Disposition: See ED Immediately Original Inclination: Call Provider/See in 24 Intended Action: Seek care in ER Physician Contacted: No Vomiting multiple times OR unable to keep fluids down for more than 2 hours ? YES documented in this encounter Plan of Treatment Not on file documented as of this encounter Visit Diagnoses Not on filedocumented in this encounter Care Teams Crane Operator Relationship Specialty Start Date End Date Jelly Bahena DO [address] [place] [address] PCP - General Family Practice 01/08/14 documented as of this encounter
--- OUTSIDE RECORDS SUMMARY | 2025-04-29 11:01 | XMS_ITS | Encounter Summary ---
Author Organization [facility] Address [address] [place] [address] Care Team Providers Care Interlocking Machine Operator Name Role Phone Jelly Bahena DO Primary Care Provider Encounter Details Date Type Department Care Team (Latest Contact Info) Description 08/08/2004 Outpatient Historical [facility] Medicine- [place] [address] [place] [address] Serafin Caldera MD [address] [place] [id number] ACUTE SEROUS OTITIS MEDIA (Primary Dx) Social History Tobacco Use Types Packs/Day Years Used Date Smoking Tobacco: Never Assessed Comments Unknown Sex and Gender Information Value Date Recorded Sex Assigned at Not on file 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
--- OUTSIDE RECORDS SUMMARY | 2025-04-29 11:01 | XMS_ITS | Encounter Summary ---
Author Organization [facility] Address [address] [place] [address] Care Team Providers Care Marine Pipe Welder Name Role Phone Jelly Bahena Gonzalez BENITES Primary Care Provider [phone] Reason for Referral * Outpatient Services (Routine) - Closed Specialty Diagnoses / Procedures Referred By Contac t Referred To Contact Diagnoses Pain Procedures XR FLUORO LESS THAN 1 HOUR Minh Delarosa MD Referral ID Status Reason Start Date Expiration Date Visits Re quested Visits Authorized [id number] Closed 02/15/2016 03/17/2017 1 1 Encounter Details Date Type Department Care Team (Late st Contact Info) Description 02/15/2016 Ancillary Orders [facility] Radiology OR [address] [place] [address] Minh Delarosa MD NO ADDRESS ON FILE Pain (Primary Dx) Social History Tobacco Use Types Packs/Day Years Used Date Smoking Tobacco: Never Smokeless Tobacco: Never Alcohol Use Standard Drinks/Week Comments No 0 (1 standard drink = 0.6 oz pur e alcohol) Comments No Sex and Gender Information Value Date Recorded Sex Assigned at Not on file 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 Exam was auto-finalized. us Minh Delarosa MD DIAGNOSTIC IMAGING ORDERABL ES Final Result documented in this encounter Visit Diagnoses Diagnosis Pain- Primary Generalized pain Pain Generalized pain documented in this encounter Care Teams Marine Pipe Welder Relationship Specialty Start Date End Date Jelly Bahena DO [address] [place] [address] PCP - General Family Practice 01/08/14 documented as of this encounter
--- OUTSIDE RECORDS SUMMARY | 2025-04-29 11:01 | XMS_ITS | Encounter Summary ---
Author Organization [facility] Address [address] [place] [address] Care Team Providers Care Director Hr Communications Name Role Phone ShrutiJelly DO Primary Care Provider [phone] Reason for Referral * Outpatient Services (Routine) - Closed Specialty Diagnoses / Procedures Referred By Contac t Referred To Contact Radiology Diagnoses Bilateral lower abdominal pain Renal colic on left side Procedures CT ABDOMEN PELVIS WO CONTRAST CT ABDOMEN PELVIS W CONTRAST Alanis Muse FNP Phone: tel: fax: [facility] CT Scan [place] [address] [place] [address] Phone: tel: fax: Referral ID Status Reason Start Date Expiration Date V isits Requested Visits Authorized [id number] Closed [facility] View CTS to Schedule (SGF) 11/14/2015 12/14/2016 1 1 ER IRONER Encounter Details Date Type Department Care Team (Late st Contact Info) Description 11/14/2015 Ancillary Orders [facility] [place] [address] [place] [address] Alanis Muse FNP [address] [place] [id number] Bilateral lower abdominal pain (Primary Dx); Renal colic on left side Social History Tobacco Use Types Packs/Day Years Used Date Smoking Tobacco: Never Smokeless Tobacco: Never Alcohol Use Standard Drinks/Week Comments No 0 (1 standard drink = 0.6 oz pur e alcohol) Comments Unknown Sex and Gender Information Value Date Recorded Sex Assigned at Not on file Legal Sex Female 3:12 AM ZIPPER IRONER Gender Identity Not on file Sexual Orientation Not on file Occupation Industry Job Start Date Job End Date Not on file Not on file Not on file Not on file documented as of this encounter Plan of Treatment Not on file documented as of this encounter Results * CT ABDOMEN PELVIS WO CONTRAST (11/14/2015 10:58 AM ZIPPER IRONER) Anatomical Region Laterality Modality Abdomen Computed Tomogra phy 11/14/2015 10:5 9 AM ZIPPER IRONER Impressions 11/14/2015 2:57 PM ZIPPER IRONER IMPRESSION: 1. Moderate sized questionably obstructing 6 mm calcification at the left ureteropelvic junction. 2. Tiny non-obstructing punctate calcification in the superior pole collecting system of the left kidney. [id number] Narrative 11/14/2015 2:57 PM ZIPPER IRONER Exam: CT ABDOMEN PELVIS WO CONTRAST Date/Time of Exam: 11/14/2015 10:59 AM Reason For Exam: Bilateral lower abdominal pain,Bilateral lower abdominal pain,Renal colic on left side. IV Contrast: No. Oral Contrast: Yes. Findings: CT of the abdomen and pelvis was performed utilizing oral contrast only. Liver is smooth and homogeneous and the gallbladder is absent. Pancreas is unremarkable. Right and left adrenal glands appear to be normal and the kidneys appear to be anatomically intact but there is a moderate sized calcification overlying the left renal pelvis measuring 0.6 cm. There is no evidence of hydroureter or hydronephrosis. Kidneys are otherwise unremarkable. There is no abdominal or pelvic ascites. Iliac michelle chain appears to be normal. Alanis AGUILERAP CT ORDERABLES Final Result documented in this encounter Visit Diagnoses Diagnosis Bilateral lower abdominal pain Abdominal pain, other specified site Renal colic on left side Renal colic Bilateral lower abdominal pain- Primary Abdominal pain, other specified site Renal colic on left side Renal colic documented in this encounter Care Teams Director Hr Communications Relationship Specialty Start Date End Date Jelly Bahena DO [address] [place] [phone] PCP - General Family Practice 01/08/14 documented as of this encounter
--- OUTSIDE RECORDS SUMMARY | 2025-04-29 11:01 | XMS_ITS | Clinical Summary ---
Author Organization [facility] Address [address] [place] [address] Care Team Providers Care Brand Development Manager Name Role Phone Shruti Jelly Roth DO Primary Care Provider [phone] Allergies Active Allergy Reactions Criticality Noted Date Comments Codeine Other (See Comments) 01/08/2014 intensifies the problem Penicillins Rash Low 01/08/2014 Medications clonazePAM (KLONOPIN) 0.5 mg Tablet Take 0.25 mg by mouth daily. Active cholecalciferol, vitamin D3, 1,000 unit Take 1,000 Units by mouth daily at bedtime . Active melatonin 5 mg Tablet Take 10 mg by mouth daily at bedtime. Active MULTIVITAMIN WITH MINERALS (HAIR,SKIN AND NAILS ORAL) Take 2 Tablets by mouth daily at bedtime. Active magnesium oxide 250 mg Tablet Take 250 mg by mouth daily at bedtime. Active ARIPiprazole (ABILIFY) 2 mg tablet Take 2 mg by mouth daily. Active MULTIVIT WITH CALCIUM,IRON,MIN (WOMEN'S DAILY MULTIVITAMIN ORAL) Take 1 Tablet by mouth daily. Active Potassium 99 mg Tablet Take 1 Tablet by mouth daily. Active traZODone (DESYREL) 100 mg tabletIndications: 1-2 at bedtime Take 300 mg by mouth daily at bedtime. Active Zonisamide (ZONEGRAN) 100 mg capsule TAKE 4 CAPSULES(400 MG) BY MOUTH DAILY 120 Capsule 6 07/01/20 19 Active Additional Information Patient taking differently: 500 mg Oral DAILY, Indications: Dr Branham, Reported on 01/27/2020 allopurinoL (ZYLOPRIM) 300 mg tabletIndications: Kidney stone TAKE 1 TABLET(300 MG) BY MOUTH DAILY 30 Tablet 11 11/12/19 20 Active hydroCHLOROthiazid e 25 mg tabletIndications: Kidney stone TAKE 1 TABLET(25 MG) BY MOUTH DAILY 90 Tablet 2 01/27/20 20 Active ascorbic acid (VITAMIN C) 100 mg Tablet, Chewable Take 100 mg by mouth. Active Lactobacillus acidophilus (PROBIOTIC ACIDOPHILUS ORAL) Take 1 Dose by mouth daily. 50 billion Active cyanocobalamin (Vitamin B-12) 2,500 mcg Tablet, Sublingual Place 2,500 mcg under tongue daily. Active sennosides-docusat e sodium (SENNA-S) 8.6-50 mg tabletIndications: Thrombosed hemorrhoids Take 1 Tablet by mouth daily. 30 Tablet 08/09/20 20 Active meloxicam (MOBIC) 15 mg tabletIndications: Primary osteoarthritis of right shoulder TAKE 1 TABLET(15 MG) BY MOUTH DAILY 90 Tablet 1 10/25/19 21 Active lovastatin (MEVACOR) 40 mg tabletIndications: Mixed hyperlipidemia TAKE 1 TABLET(40 MG) BY MOUTH DAILY 30 Tablet 2 01/11/20 21 Active fenofibrate (LOFIBRA) 160 mg TabletIndications: High triglycerides TAKE 1 TABLET(160 MG) BY MOUTH DAILY 90 Tablet 1 03/01/20 21 Active Active Problems Problem Noted Date Diagnosed Date Kidney stone 03/23/2016 Hyperlipidemia 01/12/2014 Family history of diabetes mellitus type II 12/16 Seizure disorder 01/12/2014 Migraine 01/12/2014 Immunizations Immunization Administration Dates Next Due (TDVAX)(7 YRS UP) TETANUS AN D DIPHTHERIA TOXOIDS, ADSORBED (2 LF OF TETANUS TOXOID AND 2 LF OF DIPHTHERIA TOXOID), 0.5ML (PF), IM 09/17/2002 INFLUENZA VACCINE QUADRIVALENT 3 YR UP PF IM 11/2019 Influenza Seasonal Unspecified Formulation IM ,06/08/2014 Family History Medical History Relation Name Comments Healthy Father Respiratory Disease Paternal Grandfather Diabetes Paternal Grandmother Hypertension Paternal Uncle Breast Cancer Neg Hx Ovarian Cancer Neg Hx Relation Name Status Comments Daughter Alive Father Maternal Grandmother Mother Alive Paternal Grandfather Paternal Grandmother Paternal Uncle Sister NONE Social History Tobacco Use Types Packs/Day Years Used Date Smoking Tobacco: Never Smokeless Tobacco: Never Tobacco Cessation:Counseling Given: No Alcohol Use Standard Drinks/Week Comments No 0 (1 standard drink = 0.6 oz pur e alcohol) Comments No Sex and Gender Information Value Date Recorded Sex Assigned at Not on file Legal Sex Female 3:12 AM ORDER WORKER Gender Identity Not on file Sexual Orientation Not on file Occupation Industry Job Start Date Job End Date Not on file Not on file Not on file Not on file Last Filed Vital Signs Vital Sign Reading Time Taken Comments Blood Pressure 125/80 08/09/2020 8:25 AM ORDER WORKER Pulse 83 08/09/2020 8:25 AM ORDER WORKER Temperature 36.1 C (97 F) 08/09/2020 8:25 AM ORDER WORKER Respiratory Rate 18 09/18/2019 2:24 PM ORDER WORKER Oxygen Saturation 98% 08/09/2020 8:25 AM ORDER WORKER Inhaled Oxygen Concentration - - Weight 129.7 kg (286 lb) 08/09/2020 8:25 AM ORDER WORKER Height 162.6 cm (5' 4 ) 08/09/2020 8:25 AM ORDER WORKER Body Mass Index 49.09 08/09/2020 8:25 AM ORDER WORKER Plan of Treatment Health Maintenance Due Date Last Done Comments HEPATITIS B VACCINES (1 of 3 - 19+ 3-dose series) 1988 HPV/Cotest (21-29) 1990 CERVICAL CANCER SCREENING 1999 HPV/Cotest (30-65) 1999 PAP SMEAR 1999 DTAP/TDAP/TD VACCINES (1 - Tdap) 09/18/2002 09/17/19 03 FIT-DNA Q 3 years 2014 FIT/FOBT Q 1 year 2014 Flex Sig/CT Colonography Q 5 years 2014 ZOSTER VACCINE (1 of 2) 2019 Pre-Diabetes and Diabetes Screening 07/04/2023 07/04/2020, 09/23/2019, 09/30/2017, Additional history exists BREAST CANCER SCREENING 08/23/2023 08/23/20 22, 06/30/2020, 10/10/2017, Additional history exists INFLUENZA VACCINE (#1) 2025 0, 06/28/2015, 06/08/2014 Preventative Visit-Managed Medicaid 06/26/2025 06/25/2024 COLORECTAL SCREENING 03/21/2030 03/21/2020, 12/20/19 18 Colorectal Cancer Screening 03/21/2030 Medical Devices Implanted Type Area Shipping Packer Device Identifier Shelf Expiration Date Model / Serial / Lot Stent Contour [id number] - [id number] Implanted:Qty: 1 on 02/15/2016 by Minh Delarosa MD at [facility] Stent Left: Ureter [employer]/PLANNER/SCHEDULER 11/30/2018 [id number] / / [id number] Procedures Procedure Name Priority Date/Time Associated Diagnosis Comments HEMOGLOBIN A1C Routine 07/04/2020 11:16 AM CDT Elevated random blood glucose level MAMMO SCREEN BILAT W OR WO CAD Routine 06/30/2020 Breast cancer screening by mammogram ENDOSCOPY, COLON, DIAGNOSTIC Routine 03/21/2020 from Last 3 Months or Most Recently Relevant to Health Maintenance Results * HEMOGLOBIN A1C (07/04/2020 11:16 AM CDT) HEMOGLOBIN A1C 5.5 See Comment % 07/05/2020 8:53 AM CDT [facility] EST. AVG GLUCOSE, A1C 111 mg/dL 07/05/2020 8:53 AM CDT [facility] Blood Venipuncture / Unknown 07/04/2020 11:16 AM CDT 07/04/2020 8:55 PM CDT Narrative [facility] - 07/05/2020 8:53 AM CDT HGB A1C INTERPRETATION NORMAL: <5.7% PRE-DIABETES: 5.7 - 6.4% DIABETES: 6.5% OR GREATER Falsely low A1C measurements can occur when: 1. Anemia and/or hemolytic anemia is present. 2. Hemoglobin variants present. 3. Renal failure. 4. Transfusion of blood product in the last 120 days. We recommend ordering a fructosamine test([id number]) to more accurately assess glycemic status if any of the above conditions are present. Joceline Anderson [facility] CHEMISTRY ORDERABLES Fin al Result [facility] CLIA# [id number] [address] [place] [address] * MAMMO SCREEN BILAT W OR WO CAD (06/30/2020) Anatomical Region Laterality Modality Breast Bilateral Mammography Joceline Hernandezriott [employer] MAMMO ORDERABLES Final R esult * ENDOSCOPY, COLON, DIAGNOSTIC (03/21/2020) Abstract Spg Provider GI PROCEDURE ORDERABLES Fi nal Result from Last 3 Months or Most Recently Relevant to Health Maintenance Insurance MEDICAID [place] Advance Directives For more information, please contact: [phone] * Full Code (Latest Code Status on File) Date Activated Date Inactivated Comments 01/04/2016 11:34 AM 01/04/2016 5:44 PM Care Teams Brand Development Manager Relationship Specialty Start Date End Date Jelly Bahena DO [address] [place] [address] PCP - General Family Practice 01/08/14
--- OUTSIDE RECORDS SUMMARY | 2025-04-29 11:01 | XMS_ITS | Clinical Summary ---
Author Organization [employer] Address [address] [facility] [address] [place]: Epic Prelude ADT LISY OSCAR [address] Care Team Providers Care Hand Splitter Name Role Phone Shruti Jelly Roth DO Primary Care Provider [phone] Allergies Active Allergy Reactions Criticality Noted Date Comments Codeine Other (See Comments) 01/08/2014 intensifies the problem Epinephrine Other (See Comments) High 02/07/2023 Patient states it gives her the shakes really bad. Penicillins Rash Low 01/08/2014 Medications cholecalciferol, vitamin D3, 1,000 unit Take 1,000 Units by mouth daily at bedtime. Active traZODone (DESYREL) 100 mg tabletIndications :Primary insomnia TAKE 3 TABLETS(300 MG) BY MOUTH DAILY AT BEDTIME 270 Tablet 4 06/12/20 22 Active lamoTRIgine (LaMICtal) 200 mg tablet Take 200 mg by mouth 2 times daily. 07/02/20 22 Active lidocaine-priloca ine (EMLA) 2.5-2.5 % CreamIndications: Neuropathy of left foot Apply to affected area see administration instructions. 30 Gram 2 07/31/20 22 Active melatonin 5 mg Tablet Take 10 mg by mouth daily at bedtime. 02/10/20 16 Active ARIPiprazole (ABILIFY) 2 mg tablet Take 2 mg by mouth daily. 09/10/20 22 Active coenzyme Q10 100 mg capsule Take 100 mg by mouth daily. Active meloxicam (MOBIC) 15 mg tablet TAKE 1 TABLET BY MOUTH DAILY. 30 Tablet 1 02/09/20 23 Active cetirizine (ZyrTEC) 10 mg tabletIndications :Fluid collection of middle ear Take 1 Tablet (10 mg) by mouth daily. 90 Tablet 3 02/20/20 23 Active cpap medical deviceIndications :IRENE (obstructive sleep apnea) CPAP @ 7 cwp with heated humidifier. Length of need:99 months; full face mask with headgear every 6 months; mask only every 3 months; 1 cushions per month; Tubing heated 1 every 3 months, water chamber 1 every 6 months, chin strap 1 every 6 months, filters disposable 2 per month, filters reusable 1 per 6 months. 1 Each 07/04/20 23 Active oxygen home delivery Home Oxygen Concentrator yes at 2 L/M Sleep, Delivery Device: Nasal Cannula Portability: no, May provide device best for patient needs(E system,home fill, conserving device) Length of Need: 99 months 1 Each 03/24/20 24 Active fluticasone propionate (FLONASE) 50 mcg/spray [place], Suspension nasal inhalerIndication s:Environmental and seasonal allergies,Fluid collection of middle ear USE TWO SPRAYS in each nostril DAILY 16 Gram 6 06/03/20 24 Active FLUoxetine (PROzac) 40 mg capsule Take 60 mg by mouth daily. Active CPAP / BIPAP supplies Resmed autoCPAP with EPAPmin=12cwp and EPAPmax=16cwp,Judah gth of need: 99 months Mask Type: per patient comfort with headgear every 6 months, mask only every 3 months,as needed cushions per month. Tubing: heated 1 every 3 months, water chamber 1 every 6 months, chin strap 1 every 6 months, filters disposable 2 per month, filters reusable 1 per 6 months. Efficacy data download and mask fitting. Please link efficiency data download to Dr. Garcia account. Diagnosis: G47.33 1 Each 07/23/20 24 Active simvastatin (ZOCOR) 20 mg tabletIndications :Mixed hyperlipidemia Take 1 Tablet (20 mg) by mouth daily at bedtime. 100 Tablet 3 08/04/20 24 Active gabapentin (NEURONTIN) 300 mg capsuleIndication s:Chronic pain of left ankle,Neuropathy of left foot TAKE 1 CAPSULE BY MOUTH EVERY NIGHT AT BEDTIME 90 Capsule 3 09/15/20 24 Active fenofibrate (LOFIBRA) 160 mg TabletIndications :High triglycerides TAKE 1 TABLET BY MOUTH DAILY. 90 Tablet 4 11/07/19 25 Active hydroCHLOROthiazi de 25 mg tabletIndications :Benign hypertension Take 1 Tablet (25 mg) by mouth daily. TAKE 1 TABLET BY MOUTH DAILY. 90 Tablet 3 12/26/19 25 Active Denta 5000 Plus 1.1 % Cream Take by mouth daily. [place] on once daily before bed as instructed by dentist 12/30/19 25 Active ondansetron (ZOFRAN) 8 mg TabletIndications :Side effect of medication,Nausea Take 1 Tablet (8 mg) by mouth every 8 hours as needed for Nausea/Emesis. 30 Tablet 3 01/14/20 25 Active tirzepatide, weight loss, (Zepbound) 5 mg/0.5 mL Pen InjectorIndicatio ns:Morbid obesity with body mass index of 40.0-49.9 (CMS/HCC) Inject 0.5 mL (5 mg) by subcutaneous injection every 7 days. 6 mL 3 03/16/20 25 Active allopurinoL (ZYLOPRIM) 300 mg tabletIndications :Kidney stone TAKE 1 TABLET(300 MG) BY MOUTH DAILY 90 Tablet 3 04/12/20 25 Active allopurinoL (ZYLOPRIM) 300 mg tabletIndications :Kidney stone TAKE 1 TABLET(300 MG) BY MOUTH DAILY 90 Tablet 4 02/26/20 24 025 Disconti nued(Reo rder) Active Problems Problem Noted Date Diagnosed Date Anxiety and depression 03/16/2025 Memory impairment 03/16/2025 Nausea 01/13/2025 Smell or taste problem 06/25/2024 Chronic pain of both knees 06/25/2024 Chronic left hip pain 06/25/2024 Chronic insomnia 06/25/2024 Morbid obesity with body mass index of 40.0-49.9 06/25/2024 Benign hypertension 11/04/2023 Pre-diabetes 07/31/2022 Kidney stone 03/23/2016 Hyperlipidemia 01/12/2014 Migraine 01/12/2014 Seizure disorder 01/12/2014 Family history of diabetes mellitus type II 12/16 Encounters Date Type Department Care Team Description 04/20/2025 External Device Data [facility] ABSTRACTION Provider, Abstract 04/12/2025 Telephone [facility] [address] [place] [address] Jelly Bahena, Med Refill 03/31/2025 External Device Data ST[facility] ABSTRACTION Provider, Abstract 03/31/2025 External Device Data [facility] ABSTRACTION Provider, Abstract 03/19/2025 Results Follow-Up [facility] [address] [facility] [place] [address] Bj Limon, JULISSA VITAMIN B12 AND FOLATE, CBC WITH DIFFERENTIAL, TSH, Additional followed-up results: 3 03/16/2025 3:00 PM CDT Office Visit [facility] [address] [facility] [place] [address] Bj Limon, JULISSA Morbid obesity with body mass index of 40.0-49.9 (CMS/HCC) (Primary Dx); Vaginal odor; Seizure disorder; Anxiety and depression; Memory impairment 03/03/2025 External Device Data [facility] ABSTRACTION Provider, Abstract 02/09/2025 External Device Data [facility] ABSTRACTION Provider, Abstract 02/04/2025 External Device Data [facility] ABSTRACTION Provider, Abstract 02/03/2025 External Device Data [facility] ABSTRACTION Provider, Abstract from Last 3 Months Immunizations Immunization Administration Dates Next Due (TDVAX)(7 YRS UP) TETANUS AN D DIPHTHERIA TOXOIDS, ADSORBED (2 LF OF TETANUS TOXOID AND 2 LF OF DIPHTHERIA TOXOID), 0.5ML (PF), IM 09/17/2002 INFLUENZA VACCINE QUADRIVALENT 3 YR UP PF IM 11/2019 INFLUENZA VACCINE QUADRIVALENT 6 MOS UP PF IM Influenza Seasonal Unspecified Formulation IM ,06/08/2014 Family History Medical History Relation Name Comments Healthy Father Breast Cancer Maternal Grandmother Respiratory Disease Paternal Grandfather Diabetes Paternal Grandmother Breast Cancer Paternal Great-grandmother Hypertension Paternal Uncle Ovarian Cancer Neg Hx Relation Name Status Comments Daughter Alive Father Maternal Grandmother Mother Alive Paternal Grandfather Paternal Grandmother Paternal Great-grandmother Paternal Uncle Sister NONE Social History Tobacco Use Types Packs/Day Years Used Date Smoking Tobacco: Never Passive Smoke Exposure: Never Smokeless Tobacco: Never Tobacco Cessation:Counseling Given: No Alcohol Use Standard Drinks/Week Comments No 0 (1 standard drink = 0.6 oz pur e alcohol) Comments No Sex and Gender Information Value Date Recorded Sex Assigned at Not on file Legal Sex Female 2:35 AM HULL DRAFTER Gender Identity Not on file Sexual Orientation Not on file Last Filed Vital Signs Vital Sign Reading Time Taken Comments Blood Pressure 138/72 03/16/2025 3:09 PM CDT Pulse 63 03/16/2025 3:09 PM CDT Temperature 36.8 C (98.2 F) 03/16/2025 3:09 PM CDT Respiratory Rate 17 03/16/2025 3:09 PM CDT Oxygen Saturation 97% 03/16/2025 3:09 PM CDT Inhaled Oxygen Concentration - - Weight 121 kg (266 lb 12.8 oz) 03/16/2025 3:09 P M CDT Height 162.6 cm (5' 4 ) 03/16/2025 3:09 PM CDT Body Mass Index 45.8 03/16/2025 3:09 PM CDT Plan of Treatment Upcoming Encounters Date Type Department Care Team (Late st Contact Info) Description 06/16/2025 1:20 PM CDT Office Visit [facility] [address] [place] [phone] Bj Limon [facility] [address] [place] [phone] Health Maintenance Due Date Last Done Comments HEPATITIS B VACCINES (1 of 3 - 19+ 3-dose series) 1988 DTAP/TDAP/TD VACCINES (1 - Tdap) 09/18/2002 09/17/19 03 FIT-DNA Q 3 years 2014 FIT/FOBT Q 1 year 2014 Flex Sig/CT Colonography Q 5 years 2014 ZOSTER VACCINE (1 of 2) 2019 INFLUENZA VACCINE (#1) 2025 4, 06/25/2024, 06/25/2023, Additional history exists Preventative Visit-Managed Medicaid 06/26/2025 06/25/2024 BREAST CANCER SCREENING 08/04/2025 08/04/20 24, 07/31/2023, 08/23/2022, Additional history exists PAP SMEAR 07/04/2026 07/04/2023 Pre-Diabetes and Diabetes Screening 06/25/2027 06/25/2024, 10/04/2023, 02/19/2023, Additional history exists CERVICAL CANCER SCREENING 07/04/2028 HPV/Cotest (21-29) 07/04/2028 07/04/2023 HPV/Cotest (30-65) 07/04/2028 07/04/2023 COLORECTAL SCREENING 03/21/2030 03/21/2020, 03/21/2020, 12/19/2017, Additional history exists Colorectal Cancer Screening 03/21/2030 Medical Devices Implanted Type Area Screen And Cyclone Repairer Device Identifier Shelf Expiration Date Model / Serial / Lot Stent Contour [id number] - [id number] Implanted:Qty: 1 on 02/15/2016 by Minh Delarosa MD Stent Left: Ureter [employer]Y/NETWORK SUPPORT TECHNICIAN 11/30/2018 [id number] / / [id number] Procedures Procedure Name Priority Date/Time Associated Diagnosis Comments VAGINOSIS/VAGINITIS PANEL PLUS Routine 03/16/2025 4:07 PM CDT Vaginal odor MISCELLANEOUS LAB TEST Routine 03/16/2025 3:54 PM CDT Memory impairment COMPREHENSIVE METABOLIC PANEL Routine 03/16/2025 3:52 PM CDT Morbid obesity with body mass index of 40.0-49.9 (CMS/HCC) Memory impairment TSH Routine 03/16/2025 3:52 PM CDT Morbid obesity with body mass index of 40.0-49.9 (CMS/HCC) Memory impairment CBC WITH DIFFERENTIAL Routine 03/16/2025 3:52 PM CDT Morbid obesity with body mass index of 40.0-49.9 (CMS/HCC) Memory impairment VITAMIN B12 AND FOLATE Routine 03/16/2025 3:52 PM CDT Memory impairment MAMMO 3D HARRISON SCREEN BILAT W OR WO CAD Routine 08/04/2024 2:05 PM HULL DRAFTER Visit for screening mammogram HEMOGLOBIN A1C Routine 06/25/2024 2:20 PM CDT Normal routine physical examination Pre-diabetes Morbid obesity with body mass index of 40.0-49.9 ([facility]) CERV/VAG CYTO SCREEN PAP W/HPV Routine 07/04/2023 2:37 PM CDT Well woman exam with routine gynecological exam ENDOSCOPY, COLON, DIAGNOSTIC 03/21/2020 12:00 AM CDT from Last 3 Months or Most Recently Relevant to Health Maintenance Results * VAGINOSIS/VAGINITIS PANEL PLUS (03/16/2025 4:07 PM CDT) Pathologist [facility] BACTERIAL VAGINOSIS TNP [facility] [facility] Comment: UNABLE TO REPORT Initial testing necessitated a repeat, but there was insufficient sample to perform. DELVIN SPECIES TNP [facility] Comment: UNABLE TO REPORT Initial testing necessitated a repeat, but there was insufficient sample to perform. TRICHOMONAS VAGINALIS (TV), TMA TNP [facility] Comment: UNABLE TO REPORT Initial testing necessitated a repeat, but there was insufficient sample to perform. CHLAMYDIA TRACHOMATIS RNA, TMA, UROGENITAL TNP [facility] Comment: UNABLE TO REPORT Initial testing necessitated a repeat, but there was insufficient sample to perform. Test Performed at: [facility] [address] [place] [address] Jessica Cheng MD Genital SPECIMEN FROM VAGINA / Unknown 03/16/2025 4:07 PM CDT 03/17/2025 3:25 AM CDT Bj AGUILERAP MICROBIOLOGY - GENERAL ORD ERABLES Final Result [facility] [phone] [facility] [address] [place] [address] * MISCELLANEOUS LAB TEST (03/16/2025 3:54 PM CDT) MISCELLANEOUS LAB TEST REPORT [facility], Comment: AD DETECT(TM) ABETA 42/40 AND [id number] EVALUATION, PLASMA TEST NAME RESULT FLAG UNITS REF RANGE ========= ====== ==== ===== ========= INTERPRETATION Indeterminant This panel combines beta amyloid 42/40 and [id number] plasma scores to provide an assessment of the likelihood of amyloid plaque deposition in the brain. A score of greater than 0.3254 but less than 0.6460 is unable to determine whether someone with cognitive impairment has amyloid plaque deposition in the brain. This determination cannot diagnose Alzheimer's disease by itself and should be used in combination with the patient's clinical history and presentation. ABETA 42 52 pg/mL Reference Range: NOT ESTABLISHED ABETA 40 313 pg/mL Reference Range: NOT ESTABLISHED ABETA 42/40 RATIO 0.166 L > OR = 0.170 AD DETECT [id number], PLASMA 0.37 H pg/mL < OR = 0.15 LIKELIHOOD SCORE 0.4112 H Likelihood of amyloid PET positivity: Low Likelihood: <0.3254 Indeterminant: 0.3254-0.6460 High Likelihood: >0.6460 The likelihood score for amyloid PET positivity was determined by a calculation that included plasma ABeta42/40 ratio and plasma p-Jer155, where ABeta42/40 is the ratio of plasma ABeta42 (pg/mL) and plasma ABeta40 (pg/mL), and phosphorylated tau at position 217 (pg/mL). To determine lower, indeterminant, and higher likelihoods of amyloid PET positivity, a lower likelihood cutpoint (0.3254) was established to achieve > or = 90% sensitivity for amyloid PET positivity while a higher likelihood cutpoint (0.6460) was established to achieve > or = 90% specificity for amyloid PET negativity. Based on the two cutpoints, the lower likelihood of amyloid PET positive is below the lower likelihood cutpoint, the indeterminant likelihood is between the lower and the higher likelihood cutpoints, and the higher likelihood of amyloid PET positive is above the higher likelihood cutpoint. The concentrations on this report only represent wild type Abeta 40 and 42. The variants of Abeta 40 and 42 are not detected in this assay. This test was developed and its analytical performance characteristics have been determined by [facility]. It has not been cleared or approved by the FDA. This assay has been validated pursuant to the CLIA regulations and is used for clinical purposes. FASTING:UNKNOWN FASTING: UNKNOWN Test Performed at: [facility], [address] [place] [phone] Chelly Lang MD,PhD,MICHEAL Blood 03/16/2025 3:54 PM CDT 03/16/2025 3:54 PM CDT Nayelylennie Jon Limon [facility] CHEMISTRY ORDERABLES Final Result Performing Organization Address [facility] Co de Phone Number [facility] [phone] [facility], [address] [place] [phone] * VITAMIN B12 AND FOLATE (03/16/2025 3:52 PM CDT) VITAMIN B12 533 200 - 1100 pg/mL [facility] FOLATE, SERUM 9.8 ng/mL [facility] Comment: Reference Range Low: <3.4 Borderline: 3.4-5.4 Normal: >5.4 FASTING:UNKNOWN FASTING: UNKNOWN Test Performed at: [facility] [address] [place] [address] Jessica Cheng MD Blood 03/16/2025 3:52 PM CDT 03/16/2025 3:52 PM CDT [facility] Lim[facility] CHEMISTRY ORDERABLES Final Result Performing Organization Address City/[facility]/ZIP Co de Phone Number [facility] [phone] [facility] [address] [place] [address] * CBC WITH DIFFERENTIAL (03/16/2025 3:52 PM CDT) WBC 5.8 3.8 - 10.8 Thousand/u L [facility] RBC 4.05 3.80 - 5.10 Million/uL [facility] HEMOGLOBIN 12.8 11.7 - 15.5 g/dL [facility] HEMATOCRIT 38.9 35.0 - 45.0 % [facility] MCV 96.0 80.0 - 100.0 fL [facility] MCH 31.6 27.0 - 33.0 pg [facility] MCHC 32.9 32.0 - 36.0 g/dL [facility] Comment: For adults, a slight decrease in the calculated MCHC value (in the range of 30 to 32 g/dL) is most likely not clinically significant; however, it should be interpreted with caution in correlation with other red cell parameters and the patient's clinical condition. RDW 12.9 11.0 - 15.0 % [facility] PLATELETS 255 140 - 400 Thousand/u L [facility] MPV 9.1 7.5 - 12.5 fL [facility] NEUTROPHIL ABSOLUTE 3,521 1,500 - 7,800 cells/uL [facility] LYMPHOCYTE ABSOLUTE 1,844 850 - 3,900 cells/uL [facility] MONOCYTE ABSOLUTE 313 200 - 950 cells/uL [facility] EOSINOPHIL ABSOLUTE 93 15 - 500 cells/uL [facility] BASOPHILS ABSOLUTE 29 0 - 200 cells/uL [facility] NEUTROPHIL 60.7 % [facility] LYMPHOCYTES 31.8 % [facility] MONOCYTE 5.4 % [facility] EOSINOPHILS 1.6 % [facility] BASOPHILS 0.5 % [facility] Comment: FASTING:UNKNOWN FASTING: UNKNOWN Test Performed at: [facility] [address] [place] [address] Jessica Cheng MD Blood 03/16/2025 3:52 PM CDT 03/16/2025 3:52 PM CDT us Bj Limon KENNEL WORKER HEMATOLOGY ORDERABLES Charley l Result [facility] [phone] [facility] [address] [place] [address] * TSH (03/16/2025 3:52 PM CDT) [facility] TSH 1.18 mIU/L [facility] Comment: Reference Range > or = 20 Years 0.40-4.50 Ranges First trimester 0.26-2.66 Second trimester 0.55-2.73 Third trimester 0.43-2.91 Test Performed at: [facility] [address] Jessica Cheng MD Blood 03/16/2025 3:52 PM CDT 03/16/2025 3:52 PM CDT Jakobmitzylennie Limon KENNEL WORKER CHEMISTRY ORDERABLES Final Result [facility] [phone] [facility] [address] * (ABNORMAL) COMPREHENSIVE METABOLIC PANEL (03/16/2025 3:52 PM CDT) [facility] GLUCOSE 103(H) 65 - 99 mg/dL [facility] Comment: Fasting reference interval For someone without known diabetes, a glucose value between 100 and 125 mg/dL is consistent with prediabetes and should be confirmed with a follow-up test. BUN 12 7 - 25 mg/dL [facility] CREATININE 0.81 0.50 - 1.03 mg/dL [facility] GFR 86 > OR = 60 mL/min/1. 73m2 [facility] BUN/CREAT RATIO SEE NOTE: 6 - 22 (calc) [facility] Comment: Not Reported: BUN and Creatinine are within reference range. SODIUM 139 135 - 146 mmol/L [facility] POTASSIUM 3.9 3.5 - 5.3 mmol/L [facility] CHLORIDE 102 98 - 110 mmol/L [facility] CO2 28 20 - 32 mmol/L [facility] CALCIUM 9.7 8.6 - 10.4 mg/dL [facility] TOTAL PROTEIN 6.4 6.1 - 8.1 g/dL [facility] ALBUMIN 4.2 3.6 - 5.1 g/dL [facility] GLOBULIN 2.2 1.9 - 3.7 g/dL (calc) [facility] ALBUMIN/GLOBULIN RATIO 1.9 1.0 - 2.5 (calc) [facility] BILIRUBIN TOTAL 0.5 0.2 - 1.2 mg/dL [facility] ALKALINE PHOSPHATASE 69 37 - 153 U/L [facility] AST 18 10 - 35 U/L [facility] ALT 19 6 - 29 U/L [facility] Comment: FASTING:UNKNOWN FASTING: UNKNOWN Test Performed at: [address] [address] Jessica Cheng MD Blood 03/16/2025 3:52 PM CDT 03/16/2025 3:52 PM CDT Bj Limon KENNEL WORKER CHEMISTRY ORDERABLES Final Result [facility] [phone] [facility] [address] * MAMMO 3D HARRISON SCREEN BILAT W OR WO CAD (08/04/2024 2:05 PM HULL DRAFTER) Anatomical Region Laterality Modality Breast Bilateral Mammography, Dig ital Radiography Impressions 08/15/2024 11:59 AM HULL DRAFTER : No mammographic evidence of malignancy. BI-RADS ASSESSMENT: 1 - Negative RECOMMENDATION: Routine annual screening mammography. Narrative 08/15/2024 11:59 AM HULL DRAFTER EXAM: MAMMO SCRN BILAT 3D HARRISON W OR WO CAD INDICATION: Screening COMPARISON: 07/31/2023 MAMMO SCRN BILAT 3D HARRISON W OR WO CAD, 08/23/2022 MAMMO PRIOR STUDY, 06/30/2020 MAMMO PRIOR STUDY, 10/10/2017 MAMMO SCREEN BILAT W OR WO CAD, 05/06/2014 MAMMO DIAGNOSTIC UNI LEFT W OR WO CAD, and 01/19/2014 MAMMO SCREEN BILAT W OR WO CAD BREAST COMPOSITION: There are scattered areas of fibroglandular density. FINDINGS: RIGHT BREAST: There are no suspicious masses, calcifications, or areas of architectural distortion. LEFT BREAST: There are no suspicious masses, calcifications, or areas of architectural distortion. Bj Limon [facility] MAMMO ORDERABLES Final Res ult * (ABNORMAL) HEMOGLOBIN A1C (06/25/2024 2:20 PM CDT) Pathologist [facility] HEMOGLOBIN A1C 5.7(H) <5.7 % of total Hgb [facility] Comment: For someone without known diabetes, a hemoglobin A1c value between 5.7% and 6.4% is consistent with prediabetes and should be confirmed with a follow-up test. For someone with known diabetes, a value <7% indicates that their diabetes is well controlled. A1c targets should be individualized based on duration of diabetes, age, comorbid conditions, and other considerations. This assay result is consistent with an increased risk of diabetes. Currently, no consensus exists regarding use of hemoglobin A1c for diagnosis of diabetes for children. ESTIMATED AVERAGE GLUCOSE (MG/DL) 117 mg/dL [facility] ESTIMATED AVERAGE GLUCOSE (MMOL/L) 6.5 mmol/L [facility] Comment: Test Performed at: [facility] [address] [place] [phone] Jessica Cheng MD Blood 06/25/2024 2:20 PM CDT 06/26/2024 3:44 [address] [facility] CHEMISTRY ORDERABLES Final Result [facility] [phone] [address] [facility] [address] [address] [facility] [place] [address] * CERV/VAG CYTO SCREEN PAP W/HPV (07/04/2023 2:37 PM CDT) [facility] CLINICAL INFORMATION [facility] [place] Comment:Routine exam LAST MENSTRUAL PERIOD [facility] [place] Comment:NONE GIVEN PREV PAP: [facility] [place] Comment:UNKNOWN PREV BX: [facility] [place] Comment:NONE GIVEN SOURCE [facility] [place] Comment:Endocervix ADEQUACY: [facility] [place] Comment: Satisfactory for evaluation. Endocervical/transformation zone component present. PAP INTERP [facility] [place] Comment: Cytology Results: Negative for intraepithelial lesion or malignancy. COMMENT (PAP TEST) Q uest [facility] [place] Comment: This Pap test has been evaluated with computer assisted technology. [place]: Sheng est [facility] [place] Comment: YQ, CT(ASCP) CT screening location: [place] [address] [place] [address] EXPLANATORY NOTE Que [facility] [place] Comment: EXPLANATORY NOTE: The Pap is a screening test for cervical cancer. It is not a diagnostic test and is subject to false negative and false positive results. It is most reliable when a satisfactory sample, regularly obtained, is submitted with relevant clinical findings and history, and when the Pap result is evaluated along with historic and current clinical information. HPV E6/E7 Not Detected Not Detected [facility] [place] Comment: Methodology: Bear Keeper-Mediated Amplification This assay detects E6/E7 viral messenger RNA (mRNA) from 14 high-risk HPV types (16,18,31,33,35,39,45,51,52,56,58,59,66,68). Cervical sources are required for HPV testing. If a vaginal source from a patient who has had a total hysterectomy with removal of cervix was submitted, please contact the testing laboratory for alternative testing options. For additional information, please refer to http://education.Kochzauber/faq/VBY255y3 (This link if provided for information/ educational purposes only.) Test Performed at: [facility] [address] [place] [address] Jessica KELLER Genital SWAB OF ENDOCERVIX / Unknown 07/04/2023 2:37 PM CDT 07/05/2023 4:32 AM CDT Bj Limon KENNEL WORKER PATHOLOGY/CYTOLOGY ORDERAB LES Final Result [facility] [phone] [facility] [address] [address] * ENDOSCOPY, COLON, DIAGNOSTIC (03/21/2020 12:00 AM CDT) us Sgf Scanning GI PROCEDURE ORDERABLES Final Re sult from Last 3 Months or Most Recently Relevant to Health Maintenance Insurance [place]ICAID [place] Care Teams Hand Splitter Relationship Specialty Start Date End Date Jelly Bahena DO [address] [place] [address] PCP - General Family Practice 01/08/14
--- OUTSIDE RECORDS SUMMARY | 2025-04-29 11:01 | XMS_ITS | Encounter Summary ---
Author Organization [facility] Address [address] [place] [address] Care Team Providers Care Returned Item Clerk Name Role Phone Jelly Bahena DO Primary Care Provider [phone] Reason for Referral * Outpatient Services (Routine) - Closed Specialty Diagnoses / Procedures Referred By Contac t Referred To Contact Radiology Diagnoses Other (abnormal) findings on radiological examination of breast Procedures MAMMO DIGITAL DIAG UNI LEFT Jelly Bahena, DO [address] [place] [address] Phone: tel: fax: [facility] [address] [address] Phone: tel: fax: Referral ID Status Reason Start Date Expiration Date Visits Requested Visits Authorized [id number] Closed Performing Department To Schedule (SGF) 01/21/2014 02/21/2015 1 1 Encounter Details Date Type Department Care Team (Latest Contact Info) Description 01/21/2014 Ancillary Orders [facility] [address] [address] Jelly Bahena DO [address] [place] [address] Other (abnormal) findings on radiological examination of breast (Primary Dx) Social History Tobacco Use Types Packs/Day Years Used Date Smoking Tobacco: Never Smokeless Tobacco: Never Alcohol Use Standard Drinks/Week Comments No 0 (1 standard drink = 0.6 oz pur e alcohol) Comments Unknown Sex and Gender Information Value Date Recorded Sex Assigned at Not on file Legal Sex 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 RECOMMENDATION: Yearly screening mammogram January 2015. Patient received the result and recommendation letter. ZHENG/[email or web address] - uploaded from [employer] - Near Page 05/19/2014 9:55 PM CDT LEFT DIAGNOSTIC MAMMOGRAM: REASON FOR EXAM: Recall for tissue asymmetry and nodularity left upper outer quadrant with possible very subtle distortion on the MLO view on screening 01/19/2014. Patient returned for recall evaluation 05/06/2014. Delay in report is due to required time to correct data management engineer error on several of the images from 05/06/2014. IMAGING PERFORMED: Left ML, XCC and rolled CC views, and left ML and CC spot magnification compression. COMPARISON(S): 01/19/2014. No other prior studies have been made available for comparison. MAMMOGRAPHIC FINDINGS: LEFT BREAST: Diagnostic imaging does not recreate the screening concern, consistent with summation artifact on screening. Procedure Note Larry Herrera MD - 05/19/2014 LEFT DIAGNOSTIC MAMMOGRAM: REASON FOR EXAM: Recall for tissue asymmetry and nodularity left upper outer quadrant with possible very subtle distortion on the MLO view on screening 01/19/2014. Patient returned for recall evaluation 05/06/2014. Delay in report is due to required time to correct data management engineer error on several of the images from 05/06/2014. IMAGING PERFORMED: Left ML, XCC and rolled CC views, and left ML and CC spot magnification compression. COMPARISON(S): 01/19/2014. No other prior studies have been made available for comparison. MAMMOGRAPHIC FINDINGS: LEFT BREAST: Diagnostic imaging does not recreate the screening concern, consistent with summation artifact on screening. IMPRESSION IMPRESSION: No mammographic evidence to suggest malignancy. RECOMMENDATION: Yearly screening mammogram January 2015. Patient received the result and recommendation letter. JPC/sdm - uploaded from [employer] - us Jelly Bahena DO MAMMO ORDERABLES Final Resu lt documented in this encounter Visit Diagnoses Diagnosis Other (abnormal) findings on radiological examination of breast- Primary Other (abnormal) findings on radiological examination of breast documented in this encounter Care Teams Returned Item Clerk Relationship Specialty Start Date End Date Jelly Bahena DO [address] [place] [address] PCP - General Family Practice 01/08/14 documented as of this encounter
--- OUTSIDE RECORDS SUMMARY | 2025-04-29 11:01 | XMS_ITS | Encounter Summary ---
Author Organization [facility] Address [address] [place] [address] Care Team Providers Care Eyelet Riveter Name Role Phone Jelly Bahena DO Primary Care Provider [phone] Reason for Visit * Reason Onset Date Comments Results 10/02/2024 Patient Communication Encounter Details Date Type Department Care Team (Late st Contact Info) Description 10/02/2024 Results Follow-Up [facility]3] Family Medicine [place] [address] [place] [address] Jeffers, December, [facility] [address] [place] [address] POC URINALYSIS DIPSTICK AUTOMATED, VITAMIN D 25 HYDROXY, CBC WITH DIFFERENTIAL, Additional followed-up results: 2 Social History Tobacco Use Types Packs/Day Years Used Date Smoking Tobacco: Never Passive Smoke Exposure: Never Smokeless Tobacco: Never Alcohol Use Standard Drinks/Week Comments No 0 (1 standard drink = 0.6 oz pur e alcohol) Comments No Sex and Gender Information Value Date Recorded Sex Assigned at Not on file Legal Sex Female 2:35 AM OUTSIDE RIGGER Gender Identity Not on file Sexual Orientation Not on file documented as of this encounter Miscellaneous Notes * Telephone Encounter - Kayleigh Rios - 10/02/2024 3:18 PM CST Copied from [facility] #[id number]. Topic: CPA Information Request >> Oct 02, 2024 3:18 PM Kayleigh Hurd wrote: Caller is returning phone call from clinic. Caller Name: Janel Mcclelland Patient/Caregiver Callback Number: [phone] (home) Clinic Left Note In Chart - given results Is there a note from the clinic requesting the caller be transferred when they call back? No Are the credentials of the caregiver who called the patient bottle selector? Yes Call Notes: Communicated information that is documented in the note. Patient does not want call back IDE RIGGER IDE RIGGER * Telephone Encounter - Richelle Cooper LPN - 10/02/2024 12:06 PM CST 10/02/2024 12:06 PM No answer. Left voice mail/message that patient/caregiver can return our call. If patient/caregivercalls back, contact center may tell caller that results are normal/negative and give message to pt from provider. Richelle SANTOS IDE RIGGER * Telephone Encounter - Richelle Cooper LPN - 10/02/2024 12:06 PM CST ----- Message from December Jeffers sent at 10/02/2024 11:50 AM OUTSIDE RIGGER ----- Please let Janel know her labs look good no concerning findings. IDE RIGGER documented in this encounter Plan of Treatment Upcoming Encounters Date Type Department Care Team (Late st Contact Info) Description 06/16/2025 1:20 PM CDT Office Visit [facility] [address] [place] [address] Bj Limon FNP [address] [place] [phone] documented as of this encounter Visit Diagnoses Not on filedocumented in this encounter Additional Health Concerns Assessment Noted Time PHQ-9 Depression Total Score: 1 09/29/19 4:08 PM OUTSIDE RIGGER documented as of this encounter Care Teams Eyelet Riveter Relationship Specialty Start Date End Date Jelly Bahena DO [address] [place] [address] PCP - General Family Practice 01/08/14 documented as of this encounter
[2025-04-29 11:08] VITALS: BP 166/84; PULSE 68; RESP 16; TEMP 36.4; O2SAT 93; BMI 43.9
--- NOTE | 2025-04-29 11:29 | ECG_ITS ---
[facility] Test Date: 2025-04-29 Pat Name: Janel Mcclelland Department: Room: Gender: Female Legal Nurse Consultant: : 1970 Requested By: Mars Roth Order Number: [id number] Reading MD: Measurements Intervals [place] Rate: 64 P: 67 WV: 182 QRS: -61 QRSD: 159 T: 14 QT: 470 QTc: 486 Interpretive Statements SINUS RHYTHM INTRAVENTRICULAR CONDUCTION DELAY [130+ ms QRS DURATION] LATERAL MYOCARDIAL INFARCTION , PROBABLY OLD [40+ ms Q WAVE AND/OR ST/T ABNORMALITY IN I/aVL/V5/V6] [email or web address] [id number]
--- NOTE | 2025-04-29 11:31 | W.ED.NAVMDI ---
HPI - Nausea/Vomiting/Diarrhea General: Chief complaint: Nausea/Vomiting/Diarrhea Stated complaint: N/D can't keep anyhing down shakey Time Seen by Provider: 04/29/25 11:12 History of Present Illness: 54-year-old female presents emergency room complaining of being shaky generalized abdominal pain. Some nausea and vomiting some loose stools as well. Patient is previously had a cholecystectomy has not had an appendectomy. Denies any dysuria urgency or frequency no hematochezia melena hematemesis cough cramps no fever sweats or chills. Associated nausea: Yes Associated symtoms: Reports nausea; Denies chest pain or dysuria Related Data Home Medications ?Medication ?Instructions ?Recorded ?Confirmed cholecalciferol (vitamin D3) 25 1,000 unit PO DAILY 12/16/19 04/29/25 mcg (1,000 unit) capsule fenofibrate 160 mg tablet 160 mg PO DAILY 03/07/20 04/29/25 coenzyme Q10 75 mg capsule (Ultra 75 mg PO DAILY 02/02/22 04/29/25 CoQ10) gabapentin 300 mg capsule 300 mg PO .HS 08/07/22 04/29/25 allopurinol 300 mg tablet 300 mg PO DAILY 04/29/25 04/29/25 fluoride (sodium) 1.1 % dental See Rx Instructions .Route .COMPLEX 04/29/25 04/29/25 cream (Denta 5000 Plus) fluoxetine 40 mg capsule 40 mg PO DAILY 04/29/25 04/29/25 fluticasone propionate 50 2 spray intranasal DAILY PRN 04/29/25 04/29/25 mcg/actuation nasal allergies spray,suspension hydrochlorothiazide 25 mg tablet 25 mg PO DAILY 04/29/25 04/29/25 lamotrigine 200 mg tablet 200 mg PO BID 04/29/25 04/29/25 simvastatin 20 mg tablet 20 mg PO BEDTIME 04/29/25 04/29/25 tirzepatide (weight loss) 5 mg/0.5 5 mg SUBCUT Q7D 04/29/25 04/29/25 mL subcutaneous pen injector (Zepbound) Previous Rx's ?Medication ?Instructions ?Recorded hydrocodone 5 mg-acetaminophen 325 1 tab PO Q6H PRN pain #10 tabs 05/14/24 mg tablet fluoxetine 20 mg capsule (Prozac) 20 mg PO DAILY #30 caps 05/13/25 promethazine 25 mg tablet 25 mg PO Q6H PRN nausea and 04/29/25 vomiting #20 tabs trazodone 100 mg tablet See Rx Instructions .Route 05/03/25 .COMPLEX #120 tabs Allergies Allergy/AdvReac Type Severity Reaction Status Date / Time Penicillins Allergy Severe ALGY-Rash Verified 04/29/25 11:12 epinephrine Allergy Intermediate Extreme Verified 04/29/25 11:12 shakes & weakness. codeine Allergy Unknown Verified 04/29/25 11:12 Review of Systems Const: Denies: fever(s) or chills Card: Denies: chest pain Resp: Denies: dyspnea GI: Reports: abdominal pain, nausea, vomiting and diarrhea; Denies: hematemesis, coffee ground emesis, hematochezia or melena : Denies: dysuria, urinary frequency or urinary urgency Musc: Denies: neck pain or back pain Skin/Breast: Denies: rash PFSH ED PFSH: Medical History Insomnia On combination antipsychotic drug therapy Psychiatric care Urolithiasis Multi stone former requiring bilateral endoscopy 2019 with temporary stents. Clear on follow-up Recommended dietary modification for stone risk reduction Hyperlipidemia Sleep apnea, unspecified Post-traumatic stress disorder, chronic Surgical History History of colonoscopy History of hemorrhoidectomy (~02/2020) Status post laser lithotripsy of ureteral calculus S/P ureteral stent placement ureteroscopy, bilateral retrograde pyelogram, laser S/P extracorporeal shock wave therapy Hx of cholecystectomy H/O knee surgery arthroscopy lt knee H/O: hysterectomy Family History Father Diabetes Mother No problems noted. Other Cancer Hypertension Denies family history of CAD (coronary artery disease) Anesthesia complication Bleeding disorder Stroke Social History Smoking and tobacco/nicotine status: never used tobacco/nicotine Second hand smoke exposure: No Alcohol intake: never Substance/Drug Use: never Marital status: Current occupational status: disabled Physical Exam Const: GENERAL APPEARANCE: cooperative ORIENTATION/CONSCIOUSNESS: Yes awake, Yes oriented to person, Yes oriented to place and Yes oriented to time HENMT: COMMON NORMALS: normocephalic, atraumatic and hearing grossly normal bilaterally HEAD & SCALP: normocephalic and atraumatic Resp: COMMON NORMALS: normal respiratory effort, No retractions, No use of accessory muscles and clear to auscultation bilaterally AUSCULTATION: clear to auscultation bilaterally Cardio: COMMON NORMALS: regular rate, regular rhythm and No murmurs present (Cardio) RATE: regular rate RHYTHM: regular rhythm GI: COMMON NORMALS: No hepatosplenomegaly present AUSCULTATION: Yes normoactive bowel sounds PALPATION: Yes Tenderness to palpation present (GI) (General nonspecific), No Guarding due to palpation present (GI) and Yes No hepatosplenomegaly present Extremity: COMMON NORMALS: normal to inspection, capillary refill normal, no clubbing, cyanosis or edema, no calf tenderness and no pedal edema Neuro: SENSORIUM/ORIENTATION: Yes oriented to person, Yes oriented to place and Yes oriented to time Skin: COMMON NORMALS: no rashes or lesions noted GENERAL SKIN EXAM: no rashes or lesions noted Course Vital Signs: Vital signs: Vital Signs Temperature 97.6 F 04/29/25 11:08 Pulse Rate 58 L 04/29/25 16:38 Respiratory Rate 15 04/29/25 15:22 Blood Pressure 131/57 04/29/25 16:38 Pulse Oximetry 97 04/29/25 16:38 Oxygen Delivery Me thod Room Air 04/29/25 11:36 MDM - Nausea/Vomiting/Diarrhea Medical Decision Making CT negative laboratory test unremarkable. Recommend clear liquid diet for 24 to 48 hours and advance as tolerated. This Zepbound may be part of what is causing her discomfort she can review this with her primary care doctor. No sign of active bleed or acute pathology at this time. Medical Records I reviewed the patient's medical records. Lab Data I reviewed the patient's lab results. 04/29/25 11:23 04/29/25 11:23 Radiology Impressions Chest X-Ray 04/29/25 12:18 Impression: Negative chest. Abdomen/Pelvis CT 04/29/25 13:20 IMPRESSION: 1. Fluid-filled small bowel loops in the mid abdomen and pelvis with submucosal enhancement suspicious for small bowel enteritis. 2. Fluid distended colon with air-fluid levels and submucosal enhancement suspicious for colitis. Enhancement extends to the rectum. 3. Fatty liver. 4. Small esophageal hiatal hernia. 5. Prior cholecystectomy and hysterectomy. 6. No hydronephrosis in either kidney. No obstructing renal or ureteral calculi. 7. Small fat-containing umbilical hernia. No herniated bowel. Notified Mars Perdomo DO at 04/29/2025 3:08 PM. Laboratory Results WBC 5.95 10^3/uL (3.29-11.43) 04/29/25 11:23 RBC 4.57 10^6/uL (3.85-5.65) 04/29/25 11:23 Hgb 13.80 g/dL (11.27-16.99) 04/29/25 11:23 Hct 42.6 % (36-47) 04/29/25 11:23 MCV 93.2 fl (85-98) 04/29/25 11:23 MCH 30.2 pg (27-33) 04/29/25 11:23 MCHC 32.4 g/dL (30-55) 04/29/25 11:23 RDW 13.1 % (12.1-15.1) 04/29/25 11:23 Plt Count 326 10^3/cmm (157-399) 04/29/25 11:23 MPV 8.4 fL (7.4-10.4) 04/29/25 11:23 Neut % (Auto) 60.9 % 04/29/25 11:23 Lymph % (Auto) 25.7 % 04/29/25 11:23 [place] % (Auto) 9.9 % 04/29/25 11:23 Eos % (Auto) 3.0 % 04/29/25 11:23 Baso % (Auto) 0.2 % 04/29/25 11:23 Neut # (Auto) 3.62 10^3/uL (1.8-7.7) 04/29/25 11:23 Lymph # (Auto) 1.5 10^3/uL (0.8-4.8) 04/29/25 11:23 [place] # (Auto) 0.6 10^3/uL (0.2-0.9) 04/29/25 11:23 Eos # (Auto) 0.2 10^3/uL (0.0-0.8) 04/29/25 11:23 Baso # (Auto) 0.0 10^3/uL (0.0-0.1) 04/29/25 11:23 Nucleated RBC % (auto) 0 % 04/29/25 11:23 Nucleated RBCs # 0.0 /100WBC 04/29/25 11:23 Sodium 138 mmol/L (136-145) 04/29/25 11:23 Potassium 3.8 mmol/L (3.5-5.1) 04/29/25 11:23 Chloride 102 mmol/L (98-107) 04/29/25 11:23 Carbon Dioxide 25 mmol/L (22-29) 04/29/25 11:23 Anion Gap 14.8 (5-19) 04/29/25 11:23 BUN 12 mg/dL (6-20) 04/29/25 11:23 Creatinine 0.9 mg/dL (0.5-0.9) 04/29/25 11:23 GFR Calculation 65.0 mL/min (90-130) L 04/29/25 11:23 Glucose 117 mg/dL (65-115) H 04/29/25 11:23 Calculated Osmolality 287 mOsm/kg (285-295) 04/29/25 11:23 Lactic Acid 0.9 mmol/L (0.5-2.2) 04/29/25 11:23 Calcium 10.1 mg/dL (8.5-10.5) 04/29/25 11:23 Magnesium 1.5 mg/dL (1.7-2.3) L 04/29/25 11:23 Total Bilirubin 0.5 mg/dL (0.15-1.2) 04/29/25 11:23 AST 20 U/L (0-32) 04/29/25 11:23 ALT 18 U/L (0-33) 04/29/25 11:23 Alkaline Phosphatase 60 U/L (35-105) 04/29/25 11:23 Ammonia 20 umol/L (11-51) 04/29/25 11:32 Total Protein 7.5 g/dL (6.6-8.7) 04/29/25 11:23 Albumin 4.3 g/dL (3.5-5.2) 04/29/25 11:23 Globulin 3.2 g/dL (1.3-4.6) 04/29/25 11:23 Lipase 18 U/L (13-60) 04/29/25 11:23 Urine Color Yellow (Yellow) 04/29/25 11:25 Urine Appearance Clear (CLEAR) 04/29/25 11:25 Urine pH TNP 04/29/25 11:25 Ur Specific Edelstein TNP 04/29/25 11:25 Urine Protein TNP 04/29/25 11:25 Urine Glucose (UA) TNP 04/29/25 11:25 Urine Ketones TNP 04/29/25 11:25 Urine Blood TNP 04/29/25 11:25 Urine Nitrate TNP 04/29/25 11:25 Urine Bilirubin TNP 04/29/25 11:25 Urine Urobilinogen TNP 04/29/25 11:25 Ur Leukocyte Esterase TNP 04/29/25 11:25 Urine RBC 0-4 /hpf (0-2) H 04/29/25 11:25 Urine WBC 0-4 /hpf (0-5) H 04/29/25 11:25 Ur Squamous Epith Cells 5-10 /hpf (0-5) H 04/29/25 11:25 Calcium Oxalate Crystal 15-25 /hpf H 04/29/25 11:25 Amorphous Sediment Not Reportable 04/29/25 11:25 Urine Bacteria 1+ /hpf (NONE) H 04/29/25 11:25 Urine Mucus 1+ /hpf 04/29/25 11:25 All radiology interpretation(s) finalized by discharge Discharge Plan Discharge Patient Disposition: Home Clinical Impression: Gastroenteritis Condition: Stable Prescriptions: New promethazine 25 mg tablet 25 mg PO Q6H PRN (Reason: nausea and vomiting) Qty: 20 0RF No Action fenofibrate 160 mg tablet 160 mg PO DAILY Ultra CoQ10 75 mg capsule 75 mg PO DAILY cholecalciferol (vitamin D3) 25 mcg (1,000 unit) capsule 1,000 unit PO DAILY fluoxetine [Prozac] 20 mg capsule 20 mg PO DAILY Qty: 30 2RF Rx Instructions: along with 40mg to= 60mg daily gabapentin 300 mg capsule 300 mg PO .HS trazodone 100 mg tablet See Rx Instructions .ROUTE .COMPLEX Qty: 120 2RF Dose Instruction: TAKE FOUR TABLETS BY MOUTH NIGHTLY AT BEDTIME Rx Instructions: TAKE FOUR TABLETS BY MOUTH NIGHTLY AT BEDTIME hydrocodone-acetaminophen 5-325 mg tablet 1 tab PO Q6H PRN (Reason: pain) Qty: 10 0RF fluoxetine 40 mg capsule 40 mg PO DAILY Rx Instructions: along with 20mg to=60mg daily. simvastatin 20 mg tablet 20 mg PO BEDTIME hydrochlorothiazide 25 mg tablet 25 mg PO DAILY fluticasone propionate 50 mcg/actuation spray,suspension 2 spray INTRANASAL DAILY PRN (Reason: allergies) fluoride (sodium) [Denta 5000 Plus] 1.1 % cream See Rx Instructions .ROUTE .COMPLEX Rx Instructions: BRUSH ON ONCE daily BEFORE bed instructed by dentist. Zepbound 5 mg/0.5 mL pen injector 5 mg SUBCUT Q7D Rx Instructions: Fridays lamotrigine 200 mg tablet 200 mg PO BID allopurinol 300 mg tablet 300 mg PO DAILY Discharge Orders: Discharge ED (Routine); Ordered 04/29/25 Ordered By: Mars Perdomo Referrals: Bj Limon FNP [Primary Care Provider] Discharge Diet: Usual diet Discharge Activity: Resume usual activity Patient Instructions: Gastroenteritis (ED), Opioid Safety, Pain Management, Patient Portal & Latasha Instructions Activity Restrictions/Additional Instructions: Thank you for choosing [facility] for your healthcare needs today. It is very important that you follow up as instructed or that you return to the Emergency Department should you have concerns or if your condition changes or worsens in any way. You were seen emergency room with complaint of diarrhea for [address] of your abdomen is negative laboratory tests are unremarkable discharge home increase fluid intake use promethazine as needed Print Language: Kazakh Coding Level of Care Code ED Returned Item Clerk for John Joy
[2025-04-29 11:36] VITALS: BP 196/69; PULSE 63; RESP 17; O2SAT 96
[2025-04-29] MEDS: ondansetron 2 mg/ML SDV 2 mL 4 MG IVP (11:37)
[2025-04-29 11:42] LABS: Hematocrit 42.6 % (36-47); Hemoglobin 13.80 g/dL (11.27-16.99); Mean Corpuscular HGB Conc 32.4 g/dL (30-55); Mean Corpuscular Hemoglobin 30.2 pg (27-33); Mean Corpuscular Volume 93.2 fl (85-98); Nucleated Red Blood Cells % 0 %; Platelet Count 326 10^3/cmm (157-399); Red Blood Count 4.57 10^6/uL (3.85-5.65); White Blood Count 5.95 10^3/uL (3.29-11.43)
[2025-04-29 11:55] LABS: Alanine Aminotransferase 18 U/L (0-33); Albumin Level 4.3 g/dL (3.5-5.2); Alkaline Phosphatase 60 U/L (35-105); Anion Gap 14.8 (5-19); Aspartate Amino Transferase 20 U/L (0-32); Blood Urea Nitrogen 12 mg/dL (6-20); Calcium 10.1 mg/dL (8.5-10.5); Carbon Dioxide 25 mmol/L (22-29); Chloride 102 mmol/L (98-107); Creatinine Clr Calc Pharmacy 88.3814; Globulin 3.2 g/dL (1.3-4.6); Glucose 117 mg/dL (65-115); Osmolality Calculated 287 mOsm/kg (285-295); Potassium 3.8 mmol/L (3.5-5.1); Sodium 138 mmol/L (136-145); Total Protein 7.5 g/dL (6.6-8.7)
[2025-04-29 11:58] LABS: UA Manual Slide Review YES
--- NOTE | 2025-04-29 12:18 | XR_ITS ---
WS: [id number] Portable AP upright chest, 04/29/2025 Clinical Data: dyspnea/cough Comparison: Portable chest, 05/05/2018 Findings: No nodules, masses or effusions are seen. The heart is normal. The pulmonary vascularity is not increased. No pneumonia or pneumothorax is seen. Monitor leads are on the chest wall. XR/XR chest 1V portable [id number] Impression: Negative chest.
[2025-04-29 12:35] LABS: Lactic Sepsis W/Reflex 0.9 mmol/L (0.5-2.2); Lipase 18 U/L (13-60); Magnesium 1.5 mg/dL (1.7-2.3)
[2025-04-29 13:01] LABS: Ammonia 20 umol/L (11-51)
--- NOTE | 2025-04-29 13:16 | PC.PHAR ---
Pt states she can't remember when she last took medications-possibly Saturday.
--- NOTE | 2025-04-29 13:20 | CT_ITS ---
WS: [id number] CT ABDOMEN PELVIS TECHNIQUE: Contrast-enhanced CT of the abdomen and pelvis with coronal and sagittal reformatted images. CLINICAL INFORMATION: abd pain COMPARISON: CT 2019 DLP: 1158.[address] scans at [facility] use at least one of these dose optimization techniques: automated exposure control; mA and/or kV adjustment per patient size (includes targeted exams where dose is matched to clinical indication); or iterative reconstruction. FINDINGS: Tortuous fluid-filled colon. Fluid distended small bowel loops in the mid abdomen and pelvis. Enhancing small bowel loops in particular in the RIGHT lower quadrant suspicious for small bowel enteritis. Mild diffuse colonic mucosal enhancement involves the entire colon extending to the rectum. Findings suspicious for infectious or inflammatory enterocolitis Fatty liver. Cholecystectomy. Small esophageal hiatal hernia. Portal vein and splenic vein are patent. Normal spleen. Normal pancreatic parenchymal enhancement. Celiac and SMA are patent. Normal caliber abdominal aorta. Mild aortic calcification. Lung bases are well aerated. Adrenal glands are normal. Normal renal parenchymal enhancement. Bilateral renal cortical scarring. No hydronephrosis. Nonobstructing RIGHT calyceal calculus measuring 6 mm. Small LEFT renal cyst. No obstructing renal or ureteral calculi. Fat-containing umbilical hernia. Fat-containing inguinal hernias. Prior hysterectomy and cholecystectomy. CT/CT abdomen pelvis w con* [id number] IMPRESSION: 1. Fluid-filled small bowel loops in the mid abdomen and pelvis with submucosa l enhancement suspicious for small bowel enteritis. 2. Fluid distended colon with air-fluid levels and submucosal enhancement susp icious for colitis. Enhancement extends to the rectum. 3. Fatty liver. 4. Small esophageal hiatal hernia. 5. Prior cholecystectomy and hysterectomy. 6. No hydronephrosis in either kidney. No obstructing renal or ureteral calcul i. 7. Small fat-containing umbilical hernia. No herniated bowel. Notified Mars Perdomo DO at 04/29/2025 3:08 PM.
[2025-04-29 14:01] VITALS: BP 145/65; PULSE 51; RESP 15; O2SAT 97
[2025-04-29] MEDS: iohexol 350 mg/mL 500 mL Btl (per mL) IV (14:06)
[2025-04-29 15:22] VITALS: BP 129/65; PULSE 60; RESP 15; O2SAT 97
[2025-04-29 16:38] VITALS: BP 131/57; PULSE 58; O2SAT 97
== END 2025-04-29 16:40 | disposition home or self-care (01) ==
PROVIDERS: Emergency Provider Family Medicine; PCP Nurse Practitioner Family
DX: K52.9 Noninfective gastroenteritis and colitis, unspecified (principal); E78.5 Hyperlipidemia, unspecified
CPT/HCPCS: 36415; 71045; 74177; 80053; 82140; 83605; 83690; 83735; 85025; 87040; 93005; 96374; 99285; J2405; J7030

== ENCOUNTER 2025-05-10 10:20 | Emergency (ER) | payer MEDICAID, SELFPAY ==
[2024-09-10 10:22] VITALS: BP 152/69; BMI 48.2
--- OUTSIDE RECORDS SUMMARY | 2025-05-10 10:27 | XMS_ITS | Encounter Summary ---
Author Organization [facility] Address [address] [place] [address] Care Team Providers Care Ethylbenzene Converter Operator Name Role Phone Jelly Bahena DO Primary Care Provider +1- [phone] Reason for Visit * Reason Comments Provider Call Encounter Details Date Type Department Care Team (Late st Contact Info) Description 04/30/2025 Telephone [facility] Medicine [place] [address] [place] [address] ShrutiJelly lopez DO [address] [place] [address] Provider Call Social History Tobacco Use Types Packs/Day Years Used Date Smoking Tobacco: Never Passive Smoke Exposure: Never Smokeless Tobacco: Never Alcohol Use Standard Drinks/Week Comments No 0 (1 standard drink = 0.6 oz pur e alcohol) Comments No Sex and Gender Information Value Date Recorded Sex Assigned at Not on file Legal Sex Female 2:35 AM HOME ECONOMICS EXTENSION WORKER Gender Identity Not on file Sexual Orientation Not on file documented as of this encounter Miscellaneous Notes * Telephone Encounter - Ana Lilia Byers - 05/03/2025 9:29 AM CDT Called Ethel from [facility] medical equipment and gave a verbal for the CPAP order Ana Lilia Byers, 05/03/2025 9:30 AM * Telephone Encounter - Vannessa Toney - 04/30/2025 3:47 PM CDT Copied from [facility] #[id number]. Topic: [id number] Call >> Apr 30, 2025 3:45 PM Vannessa Crow wrote: Caller is requesting to speak with Clinical Care Team. Caller Name: ethel / [facility] Callback Number: [phone] Is the caller a Physician, Nurse Practitioner or Physician Pupil Personnel Services Director? No Call Notes: She is needing a verbal for medical supplies, she lost her CPAP during travel and is needing a replacement Is this addressing an immediate patient care need? Yes Transferred to Backline/DREDGE PUMPER Line documented in this encounter Plan of Treatment Upcoming Encounters Date Type Department Care Team (Late st Contact Info) Description 06/16/2025 1:20 PM CDT Office Visit [facility] Medicine [place] [address] [place] [phone] Bj Limon FNP [address] [place] [phone] documented as of this encounter Visit Diagnoses Not on filedocumented in this encounter Additional Health Concerns Assessment Noted Time PHQ-9 Depression Total Score: 1 09/29/19 4:08 PM HOME ECONOMICS EXTENSION WORKER documented as of this encounter Care Teams Ethylbenzene Converter Operator Relationship Specialty Start Date End Date Jelly Bahena DO [address] [place] [phone] PCP - General Family Practice 01/08/14 documented as of this encounter
--- OUTSIDE RECORDS SUMMARY | 2025-05-10 10:27 | XMS_ITS | Encounter Summary ---
Author Organization [facility] Address [address] [place] [address] Care Team Providers Care Mixer And Blender Name Role Phone ShrutiJelly DO Primary Care Provider [phone]- [phone] Reason for Referral * Outpatient Services (Routine) - Closed Specialty Diagnoses / Procedures Referred By Contac t Referred To Contact Radiology Diagnoses Bilateral lower abdominal pain Renal colic on left side Procedures CT ABDOMEN PELVIS WO CONTRAST CT ABDOMEN PELVIS W CONTRAST Alanis Muse FNP Phone: tel: fax: [facility] CT Scan [place] [address] [place] [address] Phone: tel: fax: Referral ID Status Reason Start Date Expiration Date V isits Requested Visits Authorized [id number] Closed [facility] View CTS to Schedule (SGF) 11/14/2015 12/14/2016 1 1 UITMENT ADVERTISING MANAGER Encounter Details Date Type Department Care Team (Late st Contact Info) Description 11/14/2015 Ancillary Orders [facility] Medicine- [place] [address] [place] [address] Alanis Muse FNP [address] [place] [phone] Bilateral lower abdominal pain (Primary Dx); Renal colic on left side Social History Tobacco Use Types Packs/Day Years Used Date Smoking Tobacco: Never Smokeless Tobacco: Never Alcohol Use Standard Drinks/Week Comments No 0 (1 standard drink = 0.6 oz pur e alcohol) Comments Unknown Sex and Gender Information Value Date Recorded Sex Assigned at Not on file Legal Sex Female 3:12 AM RECRUITMENT ADVERTISING MANAGER Gender Identity Not on file Sexual Orientation Not on file Occupation Industry Job Start Date Job End Date Not on file Not on file Not on file Not on file documented as of this encounter Plan of Treatment Not on file documented as of this encounter Results * CT ABDOMEN PELVIS WO CONTRAST (11/14/2015 10:58 AM RECRUITMENT ADVERTISING MANAGER) Anatomical Region Laterality Modality Abdomen Computed Tomogra phy 11/14/2015 10:5 9 AM RECRUITMENT ADVERTISING MANAGER Impressions 11/14/2015 2:57 PM RECRUITMENT ADVERTISING MANAGER IMPRESSION: 1. Moderate sized questionably obstructing 6 mm calcification at the left ureteropelvic junction. 2. Tiny non-obstructing punctate calcification in the superior pole collecting system of the left kidney. [id number] Narrative 11/14/2015 2:57 PM RECRUITMENT ADVERTISING MANAGER Exam: CT ABDOMEN PELVIS WO CONTRAST Date/Time [...] colic documented in this encounter Care Teams Mixer And Blender Relationship Specialty Start Date End Date Jelly Bahena DO [address] [place] [phone] PCP - General Family Practice 01/08/14 documented as of this encounter
--- OUTSIDE RECORDS SUMMARY | 2025-05-10 10:28 | XMS_ITS | Encounter Summary ---
Author Organization [facility] Address [address] [place] [address] Care Team Providers Care Public Housing Interviewer Name Role Phone Jelly Bahena DO Primary Care Provider [phone]- [phone] Reason for Referral * Outpatient Services (Routine) - Closed Specialty Diagnoses / Procedures Referred By Contac t Referred To Contact Radiology Diagnoses Other (abnormal) findings on radiological examination of breast Procedures MAMMO DIGITAL DIAG UNI LEFT Jelly Bahena, DO [address] [place] [address] Phone: tel: fax: [facility] [address] [address] Phone: tel: fax: Referral ID Status Reason Start Date Expiration Date Visits Requested Visits Authorized [id number] Closed Performing Department To Schedule (SGF) 01/21/2014 02/21/2015 1 1 Encounter Details Date Type Department Care Team (Latest Contact Info) Description 01/21/2014 Ancillary Orders [facility] [address] [address] Jelly Bahena DO [address] [place] [address] Other (abnormal) findings on radiological examination of breast (Primary Dx) Social History Tobacco Use Types Packs/Day Years Used Date Smoking Tobacco: Never Smokeless Tobacco: Never Alcohol Use Standard Drinks/Week Comments No 0 (1 standard drink = 0.6 oz pur e alcohol) Comments Unknown Sex and Gender Information Value Date Recorded Sex Assigned at Not on file Legal Sex Female 3:12 AM SAFETY MANAGER Gender Identity Not on file Sexual [...] and recommendation letter. ZHENG/aravind - uploaded from [employer] 05/19/2014 9:55 PM CDT LEFT DIAGNOSTIC MAMMOGRAM: REASON FOR EXAM: Recall for tissue asymmetry and nodularity left upper outer quadrant with possible very subtle distortion on the MLO view on screening 01/19/2014. Patient returned for recall evaluation 05/06/2014. Delay in report is due to required time to correct databases software consultant error on several of the images from [...] is due to required time to correct databases software consultant error on several of the images from [...] and recommendation letter. JPC/sdm - uploaded from [employer] Jelly Bahena DO MAMMO ORDERABLES Final Resu lt documented in this encounter Visit Diagnoses Diagnosis Other (abnormal) findings on radiological examination of breast- Primary Other (abnormal) findings on radiological examination of breast documented in this encounter Care Teams Public Housing Interviewer Relationship Specialty Start Date End Date Jelly Bahena DO [address] [place] [address] PCP - General Family Practice 01/08/14 documented as of this encounter
--- OUTSIDE RECORDS SUMMARY | 2025-05-10 10:28 | XMS_ITS | Encounter Summary ---
Author Organization [facility] Address [address] [place] [address] Care Team Providers Care Wet Inspector Optical Glass Name Role Phone Jelly Bahena DO Primary Care Provider [phone]- [phone] Encounter Details Date Type Department Care Team (Latest Contact Info) Description 08/08/2004 Outpatient Historical [facility] Medicine- [place] [address] [place] [address] Serafin Caldera MD [address] [place] [phone] ACUTE SEROUS OTITIS MEDIA (Primary Dx) Social History Tobacco Use Types Packs/Day Years Used Date Smoking Tobacco: Never Assessed Comments Unknown Sex and Gender Information Value Date Recorded Sex Assigned at Not on file Legal Sex Female 3:12 AM NETWORKS COMPUTER CONSULTANT Gender Identity Not on file Sexual Orientation Not on file documented as of this encounter Plan of Treatment Not on file documented as of this encounter Visit Diagnoses Diagnosis Acute serous otitis media- Primary documented in this encounter Care Teams Wet Inspector Optical Glass Relationship Specialty Start Date End Date Jelly Bahena DO [address] [place] [address] PCP - General Family Practice 01/08/14 documented as of this encounter
--- OUTSIDE RECORDS SUMMARY | 2025-05-10 10:28 | XMS_ITS | Clinical Summary ---
Author Organization [facility] Address [address] [place] [address] Care Team Providers Care Wireless Internet Installer Name Role Phone Shruti Jelly Roth DO Primary Care Provider Allergies Active Allergy Reactions Criticality Noted Date [...] on file Legal Sex Female 3:12 AM SCREW DRIVER OPERATOR Gender Identity Not on file Sexual Orientation Not on file Occupation Industry Job Start Date Job End Date Not on file Not on file Not on file Not on file Last Filed Vital Signs Vital Sign Reading Time Taken Comments Blood Pressure 125/80 08/09/2020 8:25 AM SCREW DRIVER OPERATOR Pulse 83 08/09/2020 8:25 AM SCREW DRIVER OPERATOR Temperature 36.1 C (97 F) 08/09/2020 8:25 AM SCREW DRIVER OPERATOR Respiratory Rate 18 09/18/2019 2:24 PM SCREW DRIVER OPERATOR Oxygen Saturation 98% 08/09/2020 8:25 AM SCREW DRIVER OPERATOR Inhaled Oxygen Concentration - - Weight 129.7 kg (286 lb) 08/09/2020 8:25 AM SCREW DRIVER OPERATOR Height 162.6 cm (5' 4 ) 08/09/2020 8:25 AM SCREW DRIVER OPERATOR Body Mass Index 49.09 08/09/2020 8:25 AM SCREW DRIVER OPERATOR Plan of Treatment Health Maintenance Due Date [...] Screening 03/21/2030 Medical Devices Implanted Type Area Inspector Returned Materials Device Identifier Shelf Expiration Date Model / Serial / Lot Stent Contour [id number] - [id number] Implanted:Qty: 1 on 02/15/2016 by Minh Delarosa MD at [facility] Stent Left: Ureter [employer]/SEAM HAMMERER 11/30/2018 [id number] / / [id number] Procedures Procedure Name Priority Date/Time Associated Diagnosis [...] See Comment % 07/05/2020 8:53 AM CDT [facility] EST. AVG GLUCOSE, A1C 111 mg/dL 07/05/2020 8:53 AM CDT [facility] Blood Venipuncture / Unknown 07/04/2020 11:16 AM CDT 07/04/2020 8:55 PM CDT Narrative [facility] - 07/05/2020 8:53 AM CDT HGB A1C INTERPRETATION NORMAL: <5.7% PRE-DIABETES: 5.7 - 6.4% DIABETES: 6.5% OR GREATER Falsely low A1C measurements can occur when: 1. Anemia and/or hemolytic anemia is present. 2. Hemoglobin variants present. 3. Renal failure. 4. Transfusion of blood product in the last 120 days. We recommend ordering a fructosamine test([id number]) to more accurately assess glycemic status if any of the above conditions are present. Joceline Anderson [facility] CHEMISTRY ORDERABLES Fin al Result [facility] CLIA# [id number] [address] [place] [address] * MAMMO SCREEN BILAT W OR WO CAD (06/30/2020) Anatomical Region Laterality Modality Breast Bilateral Mammography Joceline Hernandezriott TIRE BUILDING SUPERVISOR MAMMO ORDERABLES Final R esult * ENDOSCOPY, COLON, DIAGNOSTIC (03/21/2020) Abstract Spg Provider GI PROCEDURE ORDERABLES Fi nal Result from Last 3 Months or Most Recently Relevant to Health Maintenance Insurance [place]ICA[place] Advance Directives For more information, please contact: [phone] * Full Code (Latest Code Status on File) Date Activated Date Inactivated Comments 01/04/2016 11:34 AM 01/04/2016 5:44 PM Care Teams Wireless Internet Installer Relationship Specialty Start Date End Date Jelly Bahena DO [address] [place] [address] PCP - General Family Practice 01/08/14
--- OUTSIDE RECORDS SUMMARY | 2025-05-10 10:28 | XMS_ITS | Encounter Summary ---
Author Organization [facility] Address [address] [place] [address] Care Team Providers Care Butt Trimmer Name Role Phone Jelly Bahena DO Primary Care Provider [phone]- [phone] Reason for Visit * Reason Onset Date Comments Results 10/02/2024 Patient Communication Encounter Details Date Type Department Care Team (Late st Contact Info) Description 10/02/2024 Results Follow-Up [facility] Family Medicine Mobile [address] [place] [address] Jeffers, December, [facility] [address] [place] [address] POC URINALYSIS DIPSTICK AUTOMATED, VITAMIN [...] on file Legal Sex Female 2:35 AM FOUNTAIN OPERATOR Gender Identity Not on file Sexual Orientation Not on file documented as of this encounter Miscellaneous Notes * Telephone Encounter - Kayleigh Rios - 10/02/2024 3:18 PM CST Copied from [facility] #[id number]. Topic: CPA Information Request >> Oct 02, 2024 3:18 PM Kayleigh Hurd wrote: Caller is returning phone call from clinic. Caller Name: Janel Mcclelland Patient/Caregiver Callback Number: [phone] (home) Clinic Left Note In Chart - given results Is there a note from the clinic requesting the caller be transferred when they call back? No Are the credentials of the caregiver who called the patient director of veterans affairs? Yes Call Notes: Communicated information that is documented in the note. Patient does not want call back TAIN OPERATOR TAIN OPERATOR * Telephone Encounter - Richelle Cooper LPN - 10/02/2024 12:06 PM CST 10/02/2024 12:06 PM No answer. Left voice mail/message that patient/caregiver can return our call. If patient/caregivercalls back, contact center may tell caller that results are normal/negative and give message to pt from provider. Richelle SANTOS TAIN OPERATOR * Telephone Encounter - Richelle Cooper LPN - 10/02/2024 12:06 PM CST ----- Message from December Jeffers sent at 10/02/2024 11:50 AM FOUNTAIN OPERATOR ----- Please let Janel know her labs look good no concerning findings. TAIN OPERATOR documented in this encounter Plan of Treatment Upcoming Encounters Date Type Department Care Team (Late st Contact Info) Description 06/16/2025 1:20 PM CDT Office Visit [facility] [address] [place] [address] Bj Limon FNP [address] [place] [phone] documented as of this encounter Visit Diagnoses Not on filedocumented in this encounter Additional Health Concerns Assessment Noted Time PHQ-9 Depression Total Score: 1 09/29/19 4:08 PM FOUNTAIN OPERATOR documented as of this encounter Care Teams Butt Trimmer Relationship Specialty Start Date End Date Jelly Bahena DO [address] [place] [address] PCP - General Family Practice 01/08/14 documented as of this encounter
--- OUTSIDE RECORDS SUMMARY | 2025-05-10 10:28 | XMS_ITS | Encounter Summary ---
Author Organization [facility] Address [address] [place] [address] Care Team Providers Care Fitter And Turner Name Role Phone Jelly Bahena Gonzalez BENITES Primary Care Provider [phone]- [phone] Reason for Referral * Outpatient Services (Routine) - Closed Specialty Diagnoses / Procedures Referred By Contac t Referred To Contact Diagnoses Pain Procedures XR FLUORO LESS THAN 1 HOUR Minh Delarosa MD Referral ID Status Reason Start Date Expiration Date Visits Re quested Visits Authorized [id number] Closed 02/15/2016 03/17/2017 1 1 Encounter Details Date Type Department Care Team (Late st Contact Info) Description 02/15/2016 Ancillary Orders [facility] Radiology [place] [address] [place] [address] Minh Delarosa MD NO ADDRESS ON FILE Pain (Primary Dx) Social History Tobacco Use Types Packs/Day Years Used Date Smoking Tobacco: Never Smokeless Tobacco: Never Alcohol Use Standard Drinks/Week Comments No 0 (1 standard drink = 0.6 oz pur e alcohol) Comments No Sex and Gender Information Value Date Recorded Sex Assigned at Not on file Legal Sex Female 3:12 AM ECOMMERCE MANAGER Gender Identity Not on file Sexual [...] pain documented in this encounter Care Teams Fitter And Turner Relationship Specialty Start Date End Date Jelly Bahena DO [address] [place] [address] PCP - General Family Practice 01/08/14 documented as of this encounter
--- OUTSIDE RECORDS SUMMARY | 2025-05-10 10:28 | XMS_ITS | Clinical Summary ---
Author Organization [facility] Address [address] [place]: Epic Prelude ADT [place] [address] Care Team Providers Care Revenue Liaison Name Role Phone Shruti Jelly Roth DO Primary Care Provider [phone] Allergies Active Allergy Reactions Criticality Noted Date [...] 24 Active fluticasone propionate (FLONASE) 50 mcg/spray [place], Suspension nasal inhalerIndication s:Environmental and seasonal allergies,Fluid [...] 1.1 % Cream Take by mouth daily. Osborne on once daily before bed as instructed [...] Encounters Date Type Department Care Team Description 04/30/2025 Telephone [facility] [address] [place] [address] Jelly Bahena DO Provider Call 04/20/2025 External Device Data [facility] ABSTRACTION Provider, Abstract 04/12/2025 Telephone [facility] [address] [place] [facility] [place] [facility] [place] [address] Jelly Bahena, DO Med Refill 03/31/2025 External Device Data [facility]STRA[facility] Provider, Abstract 03/31/2025 External Device Data [facility] ABSTRACTION Provider, Abstract 03/19/2025 Results Follow-Up [facility] [address] [place] [facility] [place] [facility] [place] [address] Bj Limon, GLOBAL CLIMATE CHANGE ANALYST VITAMIN B12 AND FOLATE, CBC WITH DIFFERENTIAL, TSH, Additional followed-up results: 3 03/16/2025 3:00 PM CDT Office Visit [facility] [address] [place] [address] Bj Limon, JULISSA Morbid obesity with body [...] on file Legal Sex Female 2:35 AM SHIATSU THERAPIST Gender Identity Not on file Sexual Orientation [...] Description 06/16/2025 1:20 PM CDT Office Visit [facility] [address] [place] [address] Bj Limon, [facility] [address] [place] [phone] Health Maintenance Due Date Last Done Comments [...] Screening 03/21/2030 Medical Devices Implanted Type Area Dog Races Manager Device Identifier Shelf Expiration Date Model / Serial / Lot Stent Contour [id number] - [id number] Implanted:Qty: 1 on 02/15/2016 by Minh Delarosa MD Stent Left: Ureter [employer]- UROLOGY/QUALITY MANAGEMENT COORDINATOR 11/30/2018 [id number] / / [id number] Procedures Procedure Name Priority Date/Time Associated Diagnosis [...] OR WO CAD Routine 08/04/2024 2:05 PM SHIATSU THERAPIST Visit for screening mammogram HEMOGLOBIN A1C Routine 06/25/2024 2:20 PM CDT Normal routine physical examination Pre-diabetes Morbid obesity with body mass index of 40.0-49.9 ([facility]) CERV/VAG CYTO SCREEN PAP W/HPV Routine 07/04/2023 2:37 PM CDT Well woman exam with routine gynecological exam ENDOSCOPY, COLON, DIAGNOSTIC 03/21/2020 12:00 AM CDT from Last 3 Months or Most Recently Relevant to Health Maintenance Results * VAGINOSIS/VAGINITIS PANEL PLUS (03/16/2025 4:07 PM CDT) BACTERIAL VAGINOSIS [facility] Comment: UNABLE TO REPORT Initial testing necessitated a repeat, but there was insufficient sample to perform. DELVIN SPECIES [facility] Comment: UNABLE TO REPORT Initial testing necessitated a repeat, but there was insufficient sample to perform. TRICHOMONAS VAGINALIS (TV), TMA [facility] Comment: UNABLE TO REPORT Initial testing necessitated a repeat, but there was insufficient sample to perform. CHLAMYDIA TRACHOMATIS RNA, TMA, UROGENITAL [facility] Comment: UNABLE TO REPORT Initial testing necessitated a repeat, but there was insufficient sample to perform. Test Performed at: [facility] [address] [place] [address] Jessica Cheng MD Genital SPECIMEN FROM VAGINA / Unknown 03/16/2025 4:07 PM CDT 03/17/2025 3:25 AM CDT Bj Limon [facility] MICROBIOLOGY - GENERAL ORD ERABLES Final Result [facility] [phone] [facility] [address] [place] [address] * MISCELLANEOUS LAB TEST (03/16/2025 3:54 PM CDT) MISCELLANEOUS LAB TEST REPORT [facility], Comment: AD DETECT(TM) ABETA 42/40 AND [id number] EVALUATION, PLASMA TEST NAME RESULT FLAG UNITS REF RANGE ========= ====== ==== ===== ========= INTERPRETATION Indeterminant This panel combines beta amyloid 42/40 and p-xsd405 plasma scores to provide an assessment of [...] L > OR = 0.170 AD DETECT [id number], PLASMA 0.37 H pg/mL < OR = 0.15 LIKELIHOOD SCORE 0.4112 H Likelihood of amyloid PET positivity: Low Likelihood: <0.3254 Indeterminant: 0.3254-0.6460 High Likelihood: >0.6460 The likelihood score for amyloid PET positivity was determined by a calculation that included plasma ABeta42/40 ratio and plasma p-Qsd014, where ABeta42/40 is the ratio of plasma [...] analytical performance characteristics have been determined by [facility]. It has not been cleared or approved by the FDA. This assay has been validated pursuant to the CLIA regulations and is used for clinical purposes. FASTING:UNKNOWN FASTING: UNKNOWN Test Performed at: [facility], [address] [place] [phone] Chelly Lang MD,PhD,MICHEAL Blood 03/16/2025 3:54 PM CDT 03/16/2025 3:54 PM CDT Bj Limon [facility] CHEMISTRY ORDERABLES Final Result Performing Organization Address [facility] de Phone Number [facility] [phone] [facility], [address] [place] [phone] * VITAMIN B12 AND FOLATE (03/16/2025 3:52 PM CDT) Pathologist [facility] VITAMIN B12 533 200 - 1100 pg/mL [facility] FOLATE, SERUM 9.8 ng/mL [facility] Comment: Reference Range Low: <3.4 Borderline: 3.4-5.4 Normal: >5.4 FASTING:UNKNOWN FASTING: UNKNOWN Test Performed at: [facility] [address] [place] [address] Jessica Cheng MD Blood 03/16/2025 3:52 PM CDT 03/16/2025 3:52 PM CDT Bj Limon [facility] CHEMISTRY ORDERABLES Final Result Performing Organization Address [facility] de Phone Number [facility] [phone] [facility] [address] [facility] [place] [address] * CBC WITH DIFFERENTIAL (03/16/2025 3:52 PM CDT) Pathologist [facility] WBC 5.8 3.8 - 10.8 Thousand/u L [...] Comment: FASTING:UNKNOWN FASTING: UNKNOWN Test Performed at: [facility] [address] [address] Jessica Cheng MD Blood 03/16/2025 3:52 PM CDT 03/16/2025 3:52 PM CDT Bj Limon GLOBAL CLIMATE CHANGE ANALYST HEMATOLOGY ORDERABLES Charley l Result [facility] [phone] [facility] [address] [place] [address] * TSH (03/16/2025 3:52 PM CDT) [facility] TSH 1.18 mIU/L [facility] Comment: Reference Range > or = 20 Years 0.40-4.50 Ranges First trimester 0.26-2.66 Second trimester 0.55-2.73 Third trimester 0.43-2.91 Test Performed at: [facility] [address] [place] [address] Jessica Cheng MD Blood 03/16/2025 3:52 PM CDT 03/16/2025 3:52 PM CDT Bj Limon GLOBAL CLIMATE CHANGE ANALYST CHEMISTRY ORDERABLES Final Result Performing Organization Address [facility] de Phone Number [facility] [phone] [facility] [address] [place] [address] * (ABNORMAL) COMPREHENSIVE METABOLIC PANEL (03/16/2025 3:52 PM CDT) [facility] GLUCOSE 103(H) 65 - 99 mg/dL [facility] [...] Comment: FASTING:UNKNOWN FASTING: UNKNOWN Test Performed at: [facility] [address] [place] [address] Jessica Cheng MD Blood 03/16/2025 3:52 PM CDT 03/16/2025 3:52 PM CDT Bj Limon GLOBAL CLIMATE CHANGE ANALYST CHEMISTRY ORDERABLES Final Result [facility] [phone] [facility] [address] [place] [address] * MAMMO 3D HARRISON SCREEN BILAT W OR WO CAD (08/04/2024 2:05 PM SHIATSU THERAPIST) Anatomical Region Laterality Modality Breast Bilateral Mammography, Dig ital Radiography Impressions 08/15/2024 11:59 AM SHIATSU THERAPIST : No mammographic evidence of malignancy. BI-RADS ASSESSMENT: 1 - Negative RECOMMENDATION: Routine annual screening mammography. Narrative 08/15/2024 11:59 AM SHIATSU THERAPIST EXAM: MAMMO SCRN BILAT 3D HARRISON W [...] or areas of architectural distortion. Bj Limon [facility] MAMMO ORDERABLES Final Res ult * (ABNORMAL) HEMOGLOBIN A1C (06/25/2024 2:20 PM CDT) HEMOGLOBIN A1C 5.7(H) <5.7 % of total [...] ESTIMATED AVERAGE GLUCOSE (MG/DL) 117 mg/dL [facility] ESTIMATED AVERAGE GLUCOSE (MMOL/L) 6.5 mmol/L [facility] Comment: Test Performed at: [facility] [address] [address] Jessica Cheng MD Blood 06/25/2024 2:20 PM CDT 06/26/2024 3:44 AM CDT Bj Limon [facility] CHEMISTRY ORDERABLES Final Result [facility] [phone] [facility] [address] [address] [address] * CERV/VAG CYTO SCREEN PAP W/HPV (07/04/2023 2:37 PM CDT) CLINICAL INFORMATION [facility] Comment:Routine exam LAST MENSTRUAL PERIOD [facility] Comment:NONE GIVEN PREV PAP: [facility] [place] Comment:UNKNOWN PREV BX: [facility] [place] Comment:NONE GIVEN SOURCE [facility] [place] Comment:End[facility] ADEQUACY: [facility] '[facility] you [facility] Comment: Satisfactory for evaluation. Endocervical/transformation zone component present. PAP INTERP [facility] Comment: Cytology Results: Negative for intraepithelial lesion or malignancy. COMMENT (PAP TEST) Q uest [facility] [place] Comment: This Pap test has been evaluated with computer assisted technology. SHIRT IRONER: Sheng est [facility] Comment: YQ, CT(ASCP) CT screening location: [place] [address] [place] [address] EXPLANATORY NOTE [email or web address] [place] Comment: EXPLANATORY NOTE: The Pap is a [...] information. HPV E6/E7 Not Detected Not Detected CBIT A/Sa Comment: Methodology: Carousel Attendant-Mediated Amplification This assay detects E6/E7 viral messenger RNA (mRNA) from 14 high-risk HPV types (16,18,31,33,35,39,45,51,52,56,58,59,66,68). Cervical sources are required for HPV testing. If a vaginal source from a patient who has had a total hysterectomy with removal of cervix was submitted, please contact the testing laboratory for alternative testing options. For additional information, please refer to http://education.MaintenanceNet/faq/UES778q9 (This link if provided for information/ educational purposes only.) Test Performed at: [facility] [address] [place] [address] Jessica KELLER Genital SWAB OF ENDOCERVIX / Unknown 07/04/2023 2:37 PM CDT 07/05/2023 4:32 AM CDT Bj Limon GLOBAL CLIMATE CHANGE ANALYST PATHOLOGY/CYTOLOGY ORDERAB LES Final Result [facility] [phone] [facility] [address] [address] [phone] * ENDOSCOPY, COLON, DIAGNOSTIC (03/21/2020 12:00 AM CDT) us Sgf Scanning GI PROCEDURE ORDERABLES Final Re sult from Last 3 Months or Most Recently Relevant to Health Maintenance Insurance MEDICAID [place] Care Teams Revenue Liaison Relationship Specialty Start Date End Date Jelly Bahena DO [address] [place] [address] PCP - General Family Practice 01/08/14
--- OUTSIDE RECORDS SUMMARY | 2025-05-10 10:28 | XMS_ITS | Encounter Summary ---
Author Organization [facility] Address [address] [place] [address] Care Team Providers Care Forensic Examiner Name Role Phone Jelly Bahena Primary Care Provider [phone] Encounter Details Date Type Department Care Team [...] on file Legal Sex Female 3:12 AM JAVA J2EE APPLICATION DEVELOPER Gender Identity Not on file Sexual Orientation Not on file Occupation Industry Job Start Date Job End Date Not on file Not on file Not on file Not on file documented as of this encounter Progress Notes * Carlene Bradshaw RN - 01/04/2016 8:37 PM CDT CHART DOCUMENTATION ONLY Call Type: Triage Call Addendum Date and Time [id number] Presenting Problem: Daughter Shea She is vomiting. [...] PCN <<<<<<<< TRIAGE NOTE >>>>>>>> Triage Note: Parts Salvager Carlene Bradshaw added this note on Jan 04 2016 8:37PM: Daughter planning to take pt to [facility] ED from [facility] where they are currently in [place]. <<<<<<<< TRIAGE/OUTCOME >>>>>>>> Guideline Title: Postoperative Problems [...] on filedocumented in this encounter Care Teams Forensic Examiner Relationship Specialty Start Date End Date Jelly Bahena DO [address] [place] [address] PCP - General Family Practice 01/08/14 documented as of this encounter
[2025-05-10 10:30] VITALS: BP 129/78; PULSE 86; TEMP 36.7; O2SAT 96
[2025-05-10 10:49] LABS: Hematocrit 43.6 % (36-47); Hemoglobin 14.00 g/dL (11.27-16.99); Mean Corpuscular HGB Conc 32.1 g/dL (30-55); Mean Corpuscular Hemoglobin 30.4 pg (27-33); Mean Corpuscular Volume 94.6 fl (85-98); Nucleated Red Blood Cells % 0 %; Platelet Count 299 10^3/cmm (157-399); Red Blood Count 4.61 10^6/uL (3.85-5.65); White Blood Count 9.62 10^3/uL (3.29-11.43)
[2025-05-10 11:05] LABS: Alanine Aminotransferase 18 U/L (0-33); Albumin Level 4.5 g/dL (3.5-5.2); Alkaline Phosphatase 58 U/L (35-105); Anion Gap 17.2 (5-19); Aspartate Amino Transferase 20 U/L (0-32); Blood Urea Nitrogen 17 mg/dL (6-20); Calcium 10.6 mg/dL (8.5-10.5); Carbon Dioxide 23 mmol/L (22-29); Chloride 104 mmol/L (98-107); Creatinine Clr Calc Pharmacy 88.3814; Globulin 3.2 g/dL (1.3-4.6); Glucose 116 mg/dL (65-115); Lipase 33 U/L (13-60); Osmolality Calculated 293 mOsm/kg (285-295); Potassium 4.2 mmol/L (3.5-5.1); Sodium 140 mmol/L (136-145); Total Protein 7.7 g/dL (6.6-8.7)
[2025-05-10 12:19] VITALS: BP 123/71; PULSE 71; RESP 16; O2SAT 95
[2025-05-10 12:28] LABS: Glucose Urine UA Negative (Normal); Nitrate Urine Negative (Negative); Specific Gravity, Urine 1.025 (1.005-1.030)
[2025-05-10 12:31] LABS: Add Urine Microscopic? YES
--- NOTE | 2025-05-10 12:39 | W.ED.NAVMDI ---
HPI - Nausea/Vomiting/Diarrhea General: Chief complaint: Nausea/Vomiting/Diarrhea Stated complaint: abd pain, n/v/d, chills Time Seen by Provider: 05/10/25 11:53 History of Present Illness: 54-year-old female presents emergency room continuing complaint of decreased appetite difficulty with eating anything just makes her feel sick she has been very nauseous had several episodes of vomiting. She was seen recently for the same CT abdomen showed some colitis thought to be viral gastroenteritis she was treated symptomatically. She has promethazine she has been using at home no hematochezia melena hematemesis cough cramps no fever no dysuria urgency or frequency Associated symtoms: Denies chest pain or dysuria Related Data Home Medications ?Medication ?Instructions ?Recorded ?Confirmed cholecalciferol (vitamin D3) 25 1,000 unit PO DAILY 12/16/19 05/10/25 mcg (1,000 unit) capsule fenofibrate 160 mg tablet 160 mg PO DAILY 03/07/20 05/10/25 gabapentin 300 mg capsule 300 mg PO .HS 08/07/22 05/10/25 allopurinol 300 mg tablet 300 mg PO DAILY 04/29/25 05/10/25 fluoride (sodium) 1.1 % dental See Rx Instructions .Route .COMPLEX 04/29/25 05/10/25 cream (Denta 5000 Plus) fluoxetine 40 mg capsule 40 mg PO DAILY 04/29/25 05/10/25 fluticasone propionate 50 2 spray intranasal DAILY PRN 04/29/25 05/10/25 mcg/actuation nasal allergies spray,suspension hydrochlorothiazide 25 mg tablet 25 mg PO DAILY 04/29/25 05/10/25 lamotrigine 200 mg tablet 200 mg PO BID 04/29/25 05/10/25 simvastatin 20 mg tablet 20 mg PO BEDTIME 04/29/25 05/10/25 tirzepatide (weight loss) 5 mg/0.5 5 mg SUBCUT Q7D 04/29/25 05/10/25 mL subcutaneous pen injector (Zepbound) coenzyme Q10 100 mg capsule 100 mg PO DAILY 05/10/25 05/10/25 (CoQ-10) vitamin D3 125 mcg (5,000 1 cap PO DAILY 05/10/25 05/10/25 unit)-vitamin K2 90 mcg capsule Previous Rx's ?Medication ?Instructions ?Recorded fluoxetine 20 mg capsule (Prozac) 20 mg PO DAILY #30 caps 01/26/25 promethazine 25 mg tablet 25 mg PO Q6H PRN nausea and 04/29/25 vomiting #20 tabs trazodone 100 mg tablet See Rx Instructions .Route 05/03/25 .COMPLEX #120 tabs Allergies Allergy/AdvReac Type Severity Reaction Status Date / Time Penicillins Allergy Severe ALGY-Rash Verified 05/10/25 10:36 epinephrine Allergy Intermediate Extreme Verified 05/10/25 10:36 shakes & weakness. codeine Allergy Unknown Verified 05/10/25 10:36 Review of Systems Const: Denies: fever(s) or chills Card: Denies: chest pain Resp: Denies: dyspnea GI: Denies: abdominal pain : Denies: dysuria, urinary frequency or urinary urgency Musc: Denies: neck pain or back pain Skin/Breast: Denies: rash PFSH ED PFSH: Medical History Insomnia On combination antipsychotic drug therapy Psychiatric care Urolithiasis Multi stone former requiring bilateral endoscopy 2019 with temporary stents. Clear on follow-up Recommended dietary modification for stone risk reduction Hyperlipidemia Sleep apnea, unspecified Post-traumatic stress disorder, chronic Surgical History History of colonoscopy History of hemorrhoidectomy (~02/2020) Status post laser lithotripsy of ureteral calculus S/P ureteral stent placement ureteroscopy, bilateral retrograde pyelogram, laser S/P extracorporeal shock wave therapy Hx of cholecystectomy H/O knee surgery arthroscopy lt knee H/O: hysterectomy Family History Father Diabetes Mother No problems noted. Other Cancer Hypertension Denies family history of CAD (coronary artery disease) Anesthesia complication Bleeding disorder Stroke Social History Smoking and tobacco/nicotine status: never used tobacco/nicotine Second hand smoke exposure: No Alcohol intake: never Substance/Drug Use: never Marital status: Current occupational status: disabled Physical Exam Const: COMMON NORMALS: no acute distress GENERAL APPEARANCE: cooperative and comfortable ORIENTATION/CONSCIOUSNESS: Yes awake, Yes oriented to person, Yes oriented to place and Yes oriented to time HENMT: COMMON NORMALS: normocephalic, atraumatic and hearing grossly normal bilaterally HEAD & SCALP: normocephalic and atraumatic Resp: COMMON NORMALS: normal respiratory effort, No retractions, No use of accessory muscles and clear to auscultation bilaterally AUSCULTATION: clear to auscultation bilaterally Cardio: COMMON NORMALS: regular rate, regular rhythm and No murmurs present (Cardio) RATE: regular rate RHYTHM: regular rhythm GI: COMMON NORMALS: Soft to palpation and No hepatosplenomegaly present AUSCULTATION: Yes normoactive bowel sounds PALPATION: Yes Soft to palpation, No Tenderness to palpation present (GI), No Guarding due to palpation present (GI) and Yes No hepatosplenomegaly present Extremity: COMMON NORMALS: normal to inspection, capillary refill normal, no clubbing, cyanosis or edema, no calf tenderness and no pedal edema Neuro: SENSORIUM/ORIENTATION: Yes oriented to person, Yes oriented to place and Yes oriented to time Skin: COMMON NORMALS: no rashes or lesions noted GENERAL SKIN EXAM: no rashes or lesions noted Course Vital Signs: Vital signs: Vital Signs Temperature 98.1 F 05/10/25 10:30 Pulse Rate 71 05/10/25 12:19 Respiratory Rate 16 05/10/25 12:19 Blood Pressure 123/71 05/10/25 12:19 Pulse Oximetry 95 05/10/25 12:19 Oxygen Delivery Me thod Room Air 05/10/25 12:19 MDM - Nausea/Vomiting/Diarrhea Medical Decision Making CT of the abdomen actually shows improvement from previous imaging. Laboratory test unremarkable she does have a few white blood cells per high-power field but is equal number of epithelial cells suspect contamination await culture results. Suspect the large part of her symptoms are probably from her Zepbound. Advised her not to take any further. Clear liquid diet for 24 to 48 hours then advance as tolerated continues promethazine as needed hold is up bound till she follows up with her primary care doctor Medical Records I reviewed the patient's medical records. Lab Data I reviewed the patient's lab results. 05/10/25 10:40 05/10/25 10:40 Radiology Impressions Abdomen/Pelvis CT 05/10/25 13:01 IMPRESSION: 1. Previously described small bowel and colon enhancement appears improved today with mild residual small bowel enhancement which can be seen with enteritis 2. No evidence of small or large bowel obstruction. 3. Fatty liver. 4. Cholecystectomy clips. 5. No hydronephrosis in either kidney. 6. Nonobstructing RIGHT calyceal tip calculus measuring 7 mm unchanged. 7. Prior hysterectomy. 8. Small fat-containing umbilical hernia. Laboratory Results WBC 9.62 10^3/uL (3.29-11.43) 05/10/25 10:40 RBC 4.61 10^6/uL (3.85-5.65) 05/10/25 10:40 Hgb 14.00 g/dL (11.27-16.99) 05/10/25 10:40 Hct 43.6 % (36-47) 05/10/25 10:40 MCV 94.6 fl (85-98) 05/10/25 10:40 MCH 30.4 pg (27-33) 05/10/25 10:40 MCHC 32.1 g/dL (30-55) 05/10/25 10:40 RDW 13.1 % (12.1-15.1) 05/10/25 10:40 Plt Count 299 10^3/cmm (157-399) 05/10/25 10:40 MPV 9.1 fL (7.4-10.4) 05/10/25 10:40 Neut % (Auto) 70.6 % 05/10/25 10:40 Lymph % (Auto) 16.7 % 05/10/25 10:40 [place] % (Auto) 4.9 % 05/10/25 10:40 Eos % (Auto) 7.3 % 05/10/25 10:40 Baso % (Auto) 0.2 % 05/10/25 10:40 Neut # (Auto) 6.79 10^3/uL (1.8-7.7) 05/10/25 10:40 Lymph # (Auto) 1.6 10^3/uL (0.8-4.8) 05/10/25 10:40 [place] # (Auto) 0.5 10^3/uL (0.2-0.9) 05/10/25 10:40 Eos # (Auto) 0.7 10^3/uL (0.0-0.8) 05/10/25 10:40 Baso # (Auto) 0.0 10^3/uL (0.0-0.1) 05/10/25 10:40 Nucleated RBC % (auto) 0 % 05/10/25 10:40 Nucleated RBCs # 0.0 /100WBC 05/10/25 10:40 Sodium 140 mmol/L (136-145) 05/10/25 10:40 Potassium 4.2 mmol/L (3.5-5.1) 05/10/25 10:40 Chloride 104 mmol/L (98-107) 05/10/25 10:40 Carbon Dioxide 23 mmol/L (22-29) 05/10/25 10:40 Anion Gap 17.2 (5-19) 05/10/25 10:40 BUN 17 mg/dL (6-20) 05/10/25 10:40 Creatinine 0.9 mg/dL (0.5-0.9) 05/10/25 10:40 GFR Calculation 65.0 mL/min (90-130) L 05/10/25 10:40 Glucose 116 mg/dL (65-115) H 05/10/25 10:40 Calculated Osmolality 293 mOsm/kg (285-295) 05/10/25 10:40 Calcium 10.6 mg/dL (8.5-10.5) H 05/10/25 10:40 Total Bilirubin 0.5 mg/dL (0.15-1.2) 05/10/25 10:40 AST 20 U/L (0-32) 05/10/25 10:40 ALT 18 U/L (0-33) 05/10/25 10:40 Alkaline Phosphatase 58 U/L (35-105) 05/10/25 10:40 Total Protein 7.7 g/dL (6.6-8.7) 05/10/25 10:40 Albumin 4.5 g/dL (3.5-5.2) 05/10/25 10:40 Globulin 3.2 g/dL (1.3-4.6) 05/10/25 10:40 Lipase 33 U/L (13-60) 05/10/25 10:40 Urine Color Dark yellow (Yellow) A 05/10/25 12:07 Urine Appearance Clear (CLEAR) 05/10/25 12:07 Urine pH 6.5 (5-7) 05/10/25 12:07 Ur Specific [place] 1.025 (1.005-1.030) 05/10/25 12:07 Urine Protein 1+ (Negative) A 05/10/25 12:07 Urine Glucose (UA) Negative (Normal) 05/10/25 12:07 Urine Ketones Trace (Negative) 05/10/25 12:07 Urine Blood Negative (Negative) 05/10/25 12:07 Urine Nitrate Negative (Negative) 05/10/25 12:07 Urine Bilirubin 1+ (Negative) H 05/10/25 12:07 Urine Urobilinogen 1.0 mg/dL (Negative) 05/10/25 12:07 Ur Leukocyte Esterase 1+ (Negative) A 05/10/25 12:07 Urine RBC 0-2 /hpf (0-2) 05/10/25 12:07 Urine WBC 11-20 /hpf (0-5) H 05/10/25 12:07 Ur Squamous Epith Cells 11-20 /hpf (0-5) H 05/10/25 12:07 Amorphous Sediment Not Reportable 05/10/25 12:07 Urine Bacteria Trace /hpf (NONE) 05/10/25 12:07 Hyaline Casts 19.43 /lpf 05/10/25 12:07 Coarse Granular Casts 0-4 /lpf H 05/10/25 12:07 Urine Mucus 2+ /hpf 05/10/25 12:07 All radiology interpretation(s) finalized by discharge Discharge Plan Discharge Patient Disposition: Home Clinical Impression: Gastroenteritis Condition: Stable Prescriptions: No Action fenofibrate 160 mg tablet 160 mg PO DAILY cholecalciferol (vitamin D3) 25 mcg (1,000 unit) capsule 1,000 unit PO DAILY fluoxetine [Prozac] 20 mg capsule 20 mg PO DAILY Qty: 30 2RF Rx Instructions: along with 40mg to= 60mg daily gabapentin 300 mg capsule 300 mg PO .HS trazodone 100 mg tablet See Rx Instructions .ROUTE .COMPLEX Qty: 120 2RF Dose Instruction: TAKE FOUR TABLETS BY MOUTH NIGHTLY AT BEDTIME Rx Instructions: TAKE FOUR TABLETS BY MOUTH NIGHTLY AT BEDTIME fluoxetine 40 mg capsule 40 mg PO DAILY Rx Instructions: along with 20mg to=60mg daily. simvastatin 20 mg tablet 20 mg PO BEDTIME hydrochlorothiazide 25 mg tablet 25 mg PO DAILY fluticasone propionate 50 mcg/actuation spray,suspension 2 spray INTRANASAL DAILY PRN (Reason: allergies) fluoride (sodium) [Denta 5000 Plus] 1.1 % cream See Rx Instructions .ROUTE .COMPLEX Rx Instructions: BRUSH ON ONCE daily BEFORE bed instructed by dentist. Zepbound 5 mg/0.5 mL pen injector 5 mg SUBCUT Q7D Rx Instructions: Fridays lamotrigine 200 mg tablet 200 mg PO BID allopurinol 300 mg tablet 300 mg PO DAILY promethazine 25 mg tablet 25 mg PO Q6H PRN (Reason: nausea and vomiting) Qty: 20 0RF coenzyme Q10 [CoQ-10] 100 mg Capsule 100 mg PO DAILY vitamin D3-vitamin K2 125-90 mcg Capsule 1 cap PO DAILY Discharge Orders: Discharge ED (Routine); Ordered 05/10/25 Ordered By: Mars Perdomo Referrals: Bj Limon FNP [Primary Care Provider] Discharge Diet: Clear Liquid Discharge Activity: Increase activity as tolerated Patient Instructions: Opioid Safety, Pain Management, Patient Portal & Latasha Instructions Activity Restrictions/Additional Instructions: Thank you for choosing [facility] for your healthcare needs today. It is very important that you follow up as instructed or that you return to the Emergency Department should you have concerns or if your condition changes or worsens in any way. You were seen in the emergency room with complaint of stomach discomfort and loss of appetite. Repeat CT showed gastroenteritis seen previously is improving. Your laboratory tests are otherwise unremarkable urine was slightly concentrated there is no definitive sign of infection at this time. Your white count was normal. Suspect some your symptoms may be related to this Zepbound would stop using that medication today follow-up with your primary care doctor to see if they wish you to resume it. Continues promethazine as needed clear liquid diet for 24 to 48 hours and advance as tolerated Print Language: Wallisian Coding Level of Care Code ED Slat Grader for John Joy
--- NOTE | 2025-05-10 13:01 | CT_ITS ---
WS: [id number] CT ABDOMEN PELVIS TECHNIQUE: Contrast-enhanced CT of the abdomen and pelvis with coronal and sagittal reformatted images. CLINICAL INFORMATION: abd pain COMPARISON: 04/29/2025 DLP: 1281.[address] scans at [facility] use at least one of these dose optimization techniques: automated exposure control; mA and/or kV adjustment per patient size (includes targeted exams where dose is matched to clinical indication); or iterative reconstruction. FINDINGS: Previously described small bowel and colon enhancement appears improved today. Mild residual small bowel enhancement which can be seen with enteritis. Colon has a more normal appearance today. Normal sigmoid colon. Mild sigmoid constipation. No evidence of small or large bowel obstruction. Small fat-co ntaining umbilical hernia. Prior hysterectomy. Prior cholecystectomy. Lung bases are well aerated. Fatty liver. Normal portal vein and splenic vein. Small esophageal hiatal hernia. Normal splenic enhancement. Normal pancreatic parenchymal enhancement. Normal caliber abdominal aorta. Adrenal glands are normal. No hydronephrosis in either kidney. Small LEFT renal cyst. Small fat-containing umbilical hernia. CT/CT abdomen pelvis w con* [id number] IMPRESSION: 1. Previously described small bowel and colon enhancement appears improved tod ay with mild residual small bowel enhancement which can be seen with enteritis 2. No evidence of small or large bowel obstruction. 3. Fatty liver. 4. Cholecystectomy clips. 5. No hydronephrosis in either kidney. 6. Nonobstructing RIGHT calyceal tip calculus measuring 7 mm unchanged. 7. Prior hysterectomy. 8. Small fat-containing umbilical hernia.
[2025-05-10 13:12] LABS: UA Slide Review UA Slide Review Perf
[2025-05-10] MEDS: iohexol 350 mg/mL 500 mL Btl (per mL) IV (13:33)
[2025-05-10 15:48] VITALS: BP 144/64; PULSE 67; O2SAT 94
== END 2025-05-10 15:49 | disposition home or self-care (01) ==
PROVIDERS: Physician Assistant; Emergency Provider Family Medicine; PCP Nurse Practitioner Family
DX: K52.9 Noninfective gastroenteritis and colitis, unspecified (principal); E78.5 Hyperlipidemia, unspecified
CPT/HCPCS: 36415; 74177; 80053; 81001; 83690; 85025; 96360; 99285; J7030

== ENCOUNTER → 2025-07-05 13:36 | Outpatient (BNVA) | payer MEDICAID, SELFPAY ==
[2024-09-10 10:22] VITALS: BP 152/69; BMI 48.2
== END ==
PROVIDERS: PCP Nurse Practitioner Family; Visit Provider Podiatrist Foot & Ankle Surgery
DX: Q66.221 Congenital metatarsus adductus, right foot (principal); Q66.222 Congenital metatarsus adductus, left foot; M19.071 Primary osteoarthritis, right ankle and foot; M19.072 Primary osteoarthritis, left ankle and foot
CPT/HCPCS: 73630; 99213

== ENCOUNTER → 2025-07-09 13:02 | Outpatient (BNVA) | payer MEDICAID, SELFPAY ==
[2024-09-10 10:22] VITALS: BP 152/69; BMI 48.2
== END ==
PROVIDERS: PCP Nurse Practitioner Family; Visit Provider Nurse Practitioner Family
DX: L82.1 Other seborrheic keratosis (principal); L81.4 Other melanin hyperpigmentation; D18.01 Hemangioma of skin and subcutaneous tissue; L91.8 Other hypertrophic disorders of the skin; L29.89 Other pruritus; H53.451 Other localized visual field defect, right eye; R20.8 Other disturbances of skin sensation; L53.8 Other specified erythematous conditions; Z78.9 Other specified health status; L82.0 Inflamed seborrheic keratosis; R58 Hemorrhage, not elsewhere classified
CPT/HCPCS: 17110; 99213

== ENCOUNTER 2025-09-12 10:34 | Emergency (ER) | payer MEDICAID, SELFPAY ==
[2024-09-10 10:22] VITALS: BP 152/69; BMI 48.2
--- OUTSIDE RECORDS SUMMARY | 2025-09-12 10:38 | XMS_ITS | Encounter Summary ---
Author Organization [facility] Address [address] [place] [address] Care Team Providers Care Internal Audit Manager Name Role Phone Jelly Bahena Gonzalez BENITES Primary Care Provider [phone] Reason for Referral * Outpatient Services (Routine) - Closed Specialty Diagnoses / Procedures Referred By Contac t Referred To Contact Diagnoses Pain Procedures XR FLUORO LESS THAN 1 HOUR Minh Delarosa MD Referral ID Status Reason Start Date Expiration Date Visits Re quested Visits Authorized [id number] Closed 02/15/2016 03/17/2017 1 1 Encounter Details Date Type Department Care Team (Late st Contact Info) Description 02/15/2016 Ancillary Orders [facility] Radiology OR [address] [place] [address] Minh Delarosa MD NO ADDRESS ON FILE Pain (Primary Dx) Social History Tobacco Use Types Packs/Day Years Used Date Smoking Tobacco: Never Smokeless Tobacco: Never Alcohol Use Standard Drinks/Week Comments No 0 (1 standard drink = 0.6 oz pur e alcohol) Comments No Sex and Gender Information Value Date Recorded Sex Assigned at Not on file Legal Sex Female 3:12 AM ASSURANCE SERVICES MANAGER HEALTH CARE Gender Identity Not on file Sexual Orientation [...] pain documented in this encounter Care Teams Internal Audit Manager Relationship Specialty Start Date End Date Jelly Bahena DO [address] [place] [address] PCP - General Family Practice 01/08/14 documented as of this encounter
--- OUTSIDE RECORDS SUMMARY | 2025-09-12 10:38 | XMS_ITS | Clinical Summary ---
Author Organization [facility] Address [address] [place] [address] Care Team Providers Care Stock Car Driver Name Role Phone Shruti Jelly Roth DO Primary Care Provider [phone] Allergies Active Allergy Reactions Criticality Noted Date [...] on file Legal Sex Female 3:12 AM DYE MACHINE OPERATOR Gender Identity Not on file Sexual Orientation Not on file Occupation Industry Job Start Date Job End Date Not on file Not on file Not on file Not on file Last Filed Vital Signs Vital Sign Reading Time Taken Comments Blood Pressure 125/80 08/09/2020 8:25 AM DYE MACHINE OPERATOR Pulse 83 08/09/2020 8:25 AM DYE MACHINE OPERATOR Temperature 36.1 C (97 F) 08/09/2020 8:25 AM DYE MACHINE OPERATOR Respiratory Rate 18 09/18/2019 2:24 PM DYE MACHINE OPERATOR Oxygen Saturation 98% 08/09/2020 8:25 AM DYE MACHINE OPERATOR Inhaled Oxygen Concentration - - Weight 129.7 kg (286 lb) 08/09/2020 8:25 AM DYE MACHINE OPERATOR Height 162.6 cm (5' 4 ) 08/09/2020 8:25 AM DYE MACHINE OPERATOR Body Mass Index 49.09 08/09/2020 8:25 AM DYE MACHINE OPERATOR Plan of Treatment Health Maintenance Due [...] Screening 03/21/2030 Medical Devices Implanted Type Area Snow Ranger Device Identifier Shelf Expiration Date Model / Serial / Lot Stent Contour [id number] - [id number] Implanted:Qty: 1 on 02/15/2016 by Minh Delarosa MD at [facility] Stent Left: Ureter [employer]/MOLD WORKER 11/30/2018 [id number] / / [id number] Procedures Procedure Name Priority Date/Time Associated Diagnosis [...] See Comment % 07/05/2020 8:53 AM CDT [facility] EST. AVG GLUCOSE, A1C 111 mg/dL 07/05/2020 8:53 AM CDT [facility] Blood Venipuncture / Unknown 07/04/2020 11:16 AM CDT 07/04/2020 8:55 PM CDT Narrative [facility] - 07/05/2020 8:53 AM CDT HGB A1C INTERPRETATION NORMAL: <5.7% PRE-DIABETES: 5.7 - 6.4% DIABETES: 6.5% OR GREATER Falsely low A1C measurements can occur when: 1. Anemia and/or hemolytic anemia is present. 2. Hemoglobin variants present. 3. Renal failure. 4. Transfusion of blood product in the last 120 days. We recommend ordering a fructosamine test([id number]) to more accurately assess glycemic status if any of the above conditions are present. Joceline Anderson [facility] CHEMISTRY ORDERABLES Fin al Result [facility] CLIA# [id number] [address] [place] [address] * MAMMO SCREEN BILAT W OR WO CAD (06/30/2020) Anatomical Region Laterality Modality Breast Bilateral Mammography Joceline Hernandezriott SENIOR CATERING SALES MANAGER MAMMO ORDERABLES Final R esult * ENDOSCOPY, COLON, DIAGNOSTIC (03/21/2020) Abstract Spg Provider GI PROCEDURE ORDERABLES Fi nal Result from Last 3 Months or Most Recently Relevant to Health Maintenance Insurance MEDICAID [place] Advance Directives For more information, please contact: [phone] * Full Code (Latest Code Status on File) Date Activated Date Inactivated Comments 01/04/2016 11:34 AM 01/04/2016 5:44 PM Care Teams Stock Car Driver Relationship Specialty Start Date End Date Jelly Bahena DO [address] [place] [address] PCP - General Family Practice 01/08/14
--- OUTSIDE RECORDS SUMMARY | 2025-09-12 10:38 | XMS_ITS | Encounter Summary ---
Author Organization [facility] Address [address] [place] [address] Care Team Providers Care Press Cleaner Name Role Phone Jelly Bahena DO Primary Care Provider [phone] Reason for Referral * Outpatient Services (Routine) - Closed Specialty Diagnoses / Procedures Referred By Contac t Referred To Contact Radiology Diagnoses Other (abnormal) findings on radiological examination of breast Procedures MAMMO DIGITAL DIAG UNI LEFT Jelly Bahena, DO [address] [place] [address] Phone: tel: fax: [facility] [address] [address] Phone: tel: fax: Referral ID Status Reason Start Date Expiration Date Visits Requested Visits Authorized [id number] Closed Performing Department To Schedule (SGF) 01/21/2014 02/21/2015 1 1 Encounter Details Date Type Department Care Team (Latest Contact Info) Description 01/21/2014 Ancillary Orders [facility] [address] [address] Jelly Bahena DO [address] [place] [address] Other (abnormal) findings on radiological examination of breast (Primary Dx) Social History Tobacco Use Types Packs/Day Years Used Date Smoking Tobacco: Never Smokeless Tobacco: Never Alcohol Use Standard Drinks/Week Comments No 0 (1 standard drink = 0.6 oz pur e alcohol) Comments Unknown Sex and Gender Information Value Date Recorded Sex Assigned at Not on file Legal Sex Female 3:12 AM DENTAL CERAMIST HELPER Gender Identity Not on file Sexual Orientation [...] and recommendation letter. ZHENG/[email or web address] - uploaded from [employer] 05/19/2014 9:55 PM CDT LEFT DIAGNOSTIC MAMMOGRAM: REASON FOR EXAM: Recall for tissue asymmetry and nodularity left upper outer quadrant with possible very subtle distortion on the MLO view on screening 01/19/2014. Patient returned for recall evaluation 05/06/2014. Delay in report is due to required time to correct data scientist error on several of the images from [...] due to required time to correct data scientist error on several of the images from [...] and recommendation letter. JPC/sdm - uploaded from [employer] Jelly Bahena DO MAMMO ORDERABLES Final Resu lt documented in this encounter Visit Diagnoses Diagnosis Other (abnormal) findings on radiological examination of breast- Primary Other (abnormal) findings on radiological examination of breast documented in this encounter Care Teams Press Cleaner Relationship Specialty Start Date End Date Jelly Bahena DO [address] [place] [address] PCP - General Family Practice 01/08/14 documented as of this encounter
--- OUTSIDE RECORDS SUMMARY | 2025-09-12 10:38 | XMS_ITS | Encounter Summary ---
Author Organization [facility] Address [address] [place] [address] Care Team Providers Care Property Manager Name Role Phone Jelly Bahena DO Primary Care Provider [phone] Reason for Visit * Reason Comments Med Refill Encounter Details Date Type Department Care Team (Late Contact Info) Description 09/07/2025 Refill [facility] [address] [place] [address] Jelly Bahena DO [address] [place] [address] Chronic pain of left ankle; Neuropathy of left foot Social History Tobacco Use Types Packs/Day Years Used Date Smoking Tobacco: Never Passive Smoke Exposure: Never Smokeless Tobacco: Never Alcohol Use Standard Drinks/Week Comments No 0 (1 standard drink = 0.6 oz pur e alcohol) Comments No Sex and Gender Information Value Date Recorded Sex Assigned at Not on file Legal Sex Female 2:35 AM RESIDENTIAL MANAGER Gender Identity Not on file Sexual Orientation Not on file documented as of this encounter Plan of Treatment Upcoming Encounters Date Type Department Care Team (Late Contact Info) Description 09/17/2025 12:00 PM RESIDENTIAL MANAGER Office Visit [facility] [address] [place] [address] Bj Limon, JULISSA [address] [place] [address] documented as of this encounter Visit Diagnoses Diagnosis Chronic pain of left ankle Neuropathy of left foot Mononeuritis of lower limb, unspecified documented in this encounter Additional Health Concerns Assessment Noted Time PHQ-9 Depression Total Score: 1 09/29/19 4:08 PM RESIDENTIAL MANAGER documented as of this encounter Care Teams Property Manager Relationship Specialty Start Date End Date Jelly Bahena DO [address] [place] [address] PCP - General Family Practice 01/08/14 documented as of this encounter
--- OUTSIDE RECORDS SUMMARY | 2025-09-12 10:38 | XMS_ITS | Encounter Summary ---
Author Organization [facility] Address [address] [place] [address] Care Team Providers Care Senior Interactive Developer Name Role Phone Jelly Bahena Primary Care Provider [phone]- [phone] Encounter Details Date Type Department Care Team [...] on file Legal Sex Female 3:12 AM TESTING DIRECTOR Gender Identity Not on file Sexual Orientation Not on file Occupation Industry Job Start Date Job End Date Not on file Not on file Not on file Not on file documented as of this encounter Progress Notes * Carlene Bradshaw RN - 01/04/2016 8:37 PM CDT CHART DOCUMENTATION ONLY Call Type: Triage Call Addendum Date and Time [id number] Presenting Problem: Daughter Shea She is vomiting. [...] PCN <<<<<<<< TRIAGE NOTE >>>>>>>> Triage Note: Integrity Assessor Carlene Bradshaw added this note on Jan 04 2016 8:37PM: Daughter planning to take pt to [facility] ED from [facility] where they are currently in [place]. <<<<<<<< TRIAGE/OUTCOME >>>>>>>> Guideline Title: Postoperative Problems [...] on filedocumented in this encounter Care Teams Senior Interactive Developer Relationship Specialty Start Date End Date Jelly Bahena DO [address] [place] [address] PCP - General Family Practice 01/08/14 documented as of this encounter
--- OUTSIDE RECORDS SUMMARY | 2025-09-12 10:38 | XMS_ITS | Clinical Summary ---
Author Organization [facility] Address [address] [facility] Attn: Epic Prelude ADT LISY OSCAR [address] Care Team Providers Care Marketing Traffic Coordinator Name Role Phone Jelly Bahena Gonzalez BENITES Primary Care Provider Allergies Active Allergy Reactions [...] MOUTH DAILY AT BEDTIME 270 Tablet 4 022 Active lamoTRIgine (LaMICtal) 200 mg tablet Take 200 mg by mouth 2 times daily. 022 Active meloxicam (MOBIC) 15 mg tablet TAKE 1 TABLET BY MOUTH DAILY. 30 Tablet 1 023 Active cpap medical deviceIndications :IRENE (obstructive sleep [...] reusable 1 per 6 months. 1 Each 023 Active oxygen home delivery Home Oxygen Concentrator yes at 2 L/M Sleep, Delivery Device: Nasal Cannula Portability: no, May provide device best for patient needs(E system,home fill, conserving device) Length of Need: 99 months 1 Each 024 Active FLUoxetine (PROzac) 40 mg capsule Take 60 mg by mouth daily. Active CPAP / BIPAP supplies Resmed autoCPAP with EPAPmin=12cwp and EPAPmax=16cwp,L ength of need: 99 months Mask Type: per [...] Dr. Garcia account. Diagnosis: G47.33 1 Each 024 Active fenofibrate (LOFIBRA) 160 mg TabletIndications :High triglycerides TAKE 1 TABLET BY MOUTH DAILY. 90 Tablet 4 025 Active hydroCHLOROthiazi de 25 mg tabletIndications :Benign hypertension Take 1 Tablet (25 mg) by mouth daily. TAKE 1 TABLET BY MOUTH DAILY. 90 Tablet 3 025 Active allopurinoL (ZYLOPRIM) 300 mg tabletIndications :Kidney stone TAKE 1 TABLET(300 MG) BY MOUTH DAILY 90 Tablet 3 025 Active ondansetron (ZOFRAN) 8 mg TabletIndications :Nausea Take 1 Tablet (8 mg) by mouth every 8 hours as needed for Nausea/Emesis. 30 Tablet 3 025 Active fluticasone propionate (FLONASE) 50 mcg/spray [place], Suspension nasal inhalerIndication s:Environmental and seasonal allergies,Fluid collection of middle ear USE TWO SPRAYS in each nostril DAILY 16 Gram 6 025 Active Additional Information Patient not taking.Reported on 06/16/2025 losartan (COZAAR) 25 mg tablet Take 25 mg by mouth daily. Active tirzepatide, weight loss, (Zepbound) 7.5 mg/0.5 mL Pen InjectorIndicatio ns:Morbid obesity with body mass index of 40.0-49.9 (CMS/HCC) Inject 0.5 mL (7.5 mg) by subcutaneous injection every 7 days. 6 mL 3 025 Active simvastatin (ZOCOR) 20 mg tabletIndications :Mixed hyperlipidemia take 1 tablet by mouth once daily AT BEDTIME 100 Tablet 025 Active gabapentin (NEURONTIN) 300 mg capsuleIndication s:Chronic pain of left ankle,Neuropathy of left foot TAKE 1 CAPSULE BY MOUTH EVERY NIGHT AT BEDTIME 100 Capsule 1 025 Active simvastatin (ZOCOR) 20 mg tabletIndications :Mixed hyperlipidemia Take 1 Tablet (20 mg) by mouth daily at bedtime. 100 Tablet 3 024 2024 Discontinued gabapentin (NEURONTIN) 300 mg capsuleIndication s:Chronic pain of left ankle,Neuropathy of left foot TAKE 1 CAPSULE BY MOUTH EVERY NIGHT AT BEDTIME 90 Capsule 3 024 2024 Discontinued Active Problems Problem Noted Date Diagnosed Date [...] Encounters Date Type Department Care Team Description 09/07/2025 [facility] [address] [place] [address] Jelly Bahena DO Chronic pain of left ankle; Neuropathy of left foot 08/31/2025 External Device Data STL ABSTRACTION Provider, Abstract 08/31/2025 External Device Data STL ABSTRACTION Provider, Abstract 08/24/2025 External Device Data STL ABSTRACTION Provider, Abstract 08/18/2025 [facility] [address] [place] [address] Bj Limon FNP Mixed hyperlipidemia 08/03/2025 External Device Data STL ABSTRACTION Provider, Abstract 07/14/2025 External Device Data STL ABSTRACTION Provider, Abstract 06/18/2025 Refill [facility] [address] [place] [address] Joceline Anderson, JULISSA Benign hypertension 06/16/2025 1:20 PM CDT Office Visit [facility] [address] [place] [address] Bj Limon, JULISSA Benign hypertension (Primary Dx); Morbid obesity with body mass index of 40.0-49.9 ([facility]/HCC); Mixed hyperlipidemia; Seizure disorder; Anxiety and depression 06/14/2025 Refill [facility] [address] [place] [address] Bj Limon, JULISSA Environmental and seasonal allergies; Fluid collection of middle ear from Last 3 Months Immunizations Immunization Administration Dates Next Due (TDVAX)(7 YRS UP) TETANUS AN D DIPHTHERIA TOXOIDS, ADSORBED (2 LF OF TETANUS TOXOID AND 2 LF OF DIPHTHERIA TOXOID), 0.5ML (PF), IM 09/17/2002 INFLUENZA VACCINE QUADRIVALENT 3 YR UP PF IM 11/2019 INFLUENZA VACCINE QUADRIVALENT 6 MOS UP PF IM INFLUENZA VACCINE TRIVALENT SPLIT VIRUS, (6 MOS UP), 0.5ML (PF), IM 05/26/2025 Influenza Seasonal Unspecified Formulation IM ,06/08/2014 Family [...] on file Legal Sex Female 2:35 AM METAL BONDING HELPER Gender Identity Not on file Sexual Orientation Not on file Last Filed Vital Signs Vital Sign Reading Time Taken Comments Blood Pressure 138/76 06/16/2025 1:22 PM CDT Pulse 69 06/16/2025 1:22 PM CDT Temperature 36.3 C (97.3 F) 06/16/2025 1:22 PM CDT Respiratory Rate 17 06/16/2025 1:22 PM CDT Oxygen Saturation 94% 06/16/2025 1:22 PM CDT Inhaled Oxygen Concentration - - Weight 111.3 kg (245 lb 6.4 oz) 06/16/2025 1:22 PM CDT Height 162.6 cm (5' 4 ) 06/16/2025 1:22 PM CDT Body Mass Index 42.12 06/16/2025 1:22 PM CDT Plan of Treatment Upcoming Encounters Date Type Department Care Team (Late st Contact Info) Description 09/17/2025 12:00 PM METAL BONDING HELPER Office [facility] [place] [address] [place] [phone] Bj Limon, [facility] [address] [place] [phone] Health Maintenance Due Date Last Done Comments HEPATITIS B VACCINES (1 of 3 - 19+ 3-dose series) 1988 DTAP/TDAP/TD VACCINES (1 - Tdap) 09/18/2002 09/17/19 03 FIT-DNA Q 3 years 2014 FIT/FOBT Q 1 year 2014 Flex Sig/CT Colonography Q 5 years 2014 ZOSTER VACCINE (1 of 2) 2019 Preventative Visit-Managed Medicaid 06/26/2025 06/25/2024 BREAST CANCER SCREENING 08/04/2025 08/04/20 24, 07/31/2023, 08/23/2022, Additional history exists PAP SMEAR 07/04/2026 07/04/2023 Pre-Diabetes and Diabetes Screening 06/25/2027 06/25/2024, 10/04/2023, 02/19/2023, Additional history exists CERVICAL CANCER SCREENING 07/04/2028 HPV/Cotest (21-29) 07/04/2028 07/04/2023 HPV/Cotest (30-65) 07/04/2028 07/04/2023 COLORECTAL SCREENING 03/21/2030 03/21/2020, 03/21/2020, 12/19/2017, Additional history exists Colorectal Cancer Screening 03/21/2030 INFLUENZA VACCINE Completed 05/26/2025, , 05/18/2021, Additional history exists Medical Devices Implanted Type Area Research Scholar Device Identifier Shelf Expiration Date Model / Serial / Lot Stent Contour [id number] - [id number] Implanted:Qty: 1 on 02/15/2016 by Minh Delarosa MD Stent Left: Ureter [employer]- [employer]OLOGY/RECRUITING SCHEDULER 11/30/2018 [id number] / / [id number] Procedures Procedure Name Priority Date/Time Associated Diagnosis Comments MAMMO 3D HARRISON SCREEN BILAT W OR WO CAD Routine 08/04/2024 2:05 PM METAL BONDING HELPER Visit for screening mammogram HEMOGLOBIN A1C Routine 06/25/2024 2:20 PM CDT Normal routine physical examination Pre-diabetes Morbid obesity with body mass index of 40.0-49.9 ([facility]) CERV/VAG CYTO SCREEN PAP W/HPV Routine 07/04/2023 2:37 PM CDT Well woman exam with routine gynecological exam ENDOSCOPY, COLON, DIAGNOSTIC 03/21/2020 12:00 AM CDT from Last 3 Months or Most Recently Relevant to Health Maintenance Results * MAMMO 3D HARRISON SCREEN BILAT W OR WO CAD (08/04/2024 2:05 PM METAL BONDING HELPER) Anatomical Region Laterality Modality Breast Bilateral Mammography, Dig ital Radiography Impressions 08/15/2024 11:59 AM METAL BONDING HELPER : No mammographic evidence of malignancy. BI-RADS ASSESSMENT: 1 - Negative RECOMMENDATION: Routine annual screening mammography. Narrative 08/15/2024 11:59 AM METAL BONDING HELPER EXAM: MAMMO SCRN BILAT 3D HARRISON W [...] or areas of architectural distortion. Bj Limon [facility] MAMMO ORDERABLES Final Res ult * [...] ESTIMATED AVERAGE GLUCOSE (MMOL/L) 6.5 mmol/L [facility] Comment: Test Performed at: [facility] [id number] [address] Jessica Cheng MD Blood 06/25/2024 2:20 PM CDT 06/26/2024 3:44 AM CDT Bj AGUILERAP CHEMISTRY ORDERABLES Final Result [facility] [phone] [facility] [address] [address] * CERV/VAG CYTO SCREEN PAP W/HPV (07/04/2023 2:37 PM CDT) CLINICAL INFORMATION [facility] Comment:Routine exam LAST MENSTRUAL PERIOD [facility] [place] Comment:NONE GIVEN PREV PAP: [facility] [place] Comment:UNKNOWN PREV BX: [facility] Comment:NONE GIVEN SOURCE [facility] Comment:Endocervix ADEQUACY: [facility] Comment: Satisfactory for evaluation. Endocervical/transformation zone component present. PAP INTERP [facility] [place] Comment: Cytology Results: Negative for intraepithelial lesion or malignancy. COMMENT (PAP TEST) Q uest [facility] [place] Comment: This Pap test has been evaluated with computer assisted technology. ASSISTANT FILM EDITOR: Sheng est [employer] [place] Comment: YQ, CT(ASCP) CT screening location: [place] [address] [place] [address] EXPLANATORY NOTE Que [facility] [place] Comment: EXPLANATORY NOTE: The Pap is a [...] information. HPV E6/E7 Not Detected Not Detected [facility] Comment: Methodology: Per Diem Interpreter-Mediated Amplification This assay detects E6/E7 viral messenger RNA (mRNA) from 14 high-risk HPV types (16,18,31,33,35,39,45,51,52,56,58,59,66,68). Cervical sources are required for HPV testing. If a vaginal source from a patient who has had a total hysterectomy with removal of cervix was submitted, please contact the testing laboratory for alternative testing options. For additional information, please refer to http://education.Bioceros/faq/NWZ419c5 (This link if provided for information/ educational purposes only.) Test Performed at: [facility] [address] [place] [address] Jessica KELLER Genital SWAB OF ENDOCERVIX / Unknown 07/04/2023 2:37 PM CDT 07/05/2023 4:32 AM CDT us Jakobmitzylennie Limon SHELL MOLD BONDING MACHINE OPERATOR PATHOLOGY/CYTOLOGY ORDERAB LES Final Result [facility] [phone] [facility] [address] [place] [address] * ENDOSCOPY, COLON, DIAGNOSTIC (03/21/2020 12:00 AM CDT) us Sgf Scanning GI PROCEDURE ORDERABLES Final Re sult from Last 3 Months or Most Recently Relevant to Health Maintenance Insurance MEDICAID [place] Care Teams Marketing Traffic Coordinator Relationship Specialty Start Date End Date Jelly Bahena DO [address] [place] [address] PCP - General Family Practice 01/08/14
--- OUTSIDE RECORDS SUMMARY | 2025-09-12 10:38 | XMS_ITS | Encounter Summary ---
Author Organization [facility] Address [address] [place] [address] Care Team Providers Care Hearing Examiner Name Role Phone Jelly Bahena Primary Care Provider [phone]- [phone] Reason for Visit * Reason Onset Date Comments Results 10/02/2024 Patient Communication Encounter Details Date Type Department Care Team (Late st Contact Info) Description 10/02/2024 Results Follow-Up [facility] [address] [place] [address] Jeffers, December, [facility] [address] [place] [address] POC URINALYSIS DIPSTICK AUTOMATED, VITAMIN [...] on file Legal Sex Female 2:35 AM GARBAGE PICK UP MAN Gender Identity Not on file Sexual Orientation Not on file documented as of this encounter Miscellaneous Notes * Telephone Encounter - Kayleigh Rios - 10/02/2024 3:18 PM CST Copied from [facility] #[id number]. Topic: CPA Information Request >> Oct 02, 2024 3:18 PM Kayleigh Hurd wrote: Caller is returning phone call from clinic. Caller Name: Janel Mcclelland Patient/Caregiver Callback Number: [phone] (home) Clinic Left Note In Chart - given results Is there a note from the clinic requesting the caller be transferred when they call back? No Are the credentials of the caregiver who called the patient construction carpenters helper? Yes Call Notes: Communicated information that is documented in the note. Patient does not want call back AGE PICK UP MAN AGE PICK UP MAN * Telephone Encounter - Richelle Cooper LPN - 10/02/2024 12:06 PM CST 10/02/2024 12:06 PM No answer. Left voice mail/message that patient/caregiver can return our call. If patient/caregivercalls back, contact center may tell caller that results are normal/negative and give message to pt from provider. Richelle SANTOS AGE PICK UP MAN * Telephone Encounter - Richelle Cooper LPN - 10/02/2024 12:06 PM CST ----- Message from December Jeffers sent at 10/02/2024 11:50 AM GARBAGE PICK UP MAN ----- Please let Janel know her labs look good no concerning findings. AGE PICK UP MAN documented in this encounter Plan of Treatment Upcoming Encounters Date Type Department Care Team (Late st Contact Info) Description 09/17/2025 12:00 PM GARBAGE PICK UP MAN Office Visit [facility] [address] [place] [address] Bj Limon FNP [address] [place] [address] documented as of this encounter Visit Diagnoses Not on filedocumented in this encounter Additional Health Concerns Assessment Noted Time PHQ-9 Depression Total Score: 1 09/29/19 4:08 PM GARBAGE PICK UP MAN documented as of this encounter Care Teams Hearing Examiner Relationship Specialty Start Date End Date Jelly Bahena DO [address] [place] [address] PCP - General Family Practice 01/08/14 documented as of this encounter
--- OUTSIDE RECORDS SUMMARY | 2025-09-12 10:38 | XMS_ITS | Encounter Summary ---
Author Organization [facility] Address [address] [place] [address] Care Team Providers Care Assurance Senior Name Role Phone Jelly Bahena DO Primary Care Provider [phone]- [phone] Encounter Details Date Type Department Care Team (Latest Contact Info) Description 08/08/2004 Outpatient Historical [facility] [place] [address] [place] [address] Serafin Caldera MD [address] [place] [address] ACUTE SEROUS OTITIS MEDIA (Primary Dx) Social History Tobacco Use Types Packs/Day Years Used Date Smoking Tobacco: Never Assessed Comments Unknown Sex and Gender Information Value Date Recorded Sex Assigned at Not on file 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
--- OUTSIDE RECORDS SUMMARY | 2025-09-12 10:38 | XMS_ITS | Encounter Summary ---
Author Organization [facility] Address [address] [place] [address] Care Team Providers Care Hardscape Foreman Name Role Phone ShrutiJelly DO Primary Care Provider +1- [phone] Reason for Referral * Outpatient Services (Routine) - Closed Specialty Diagnoses / Procedures Referred By Contac t Referred To Contact Radiology Diagnoses Bilateral lower abdominal pain Renal colic on left side Procedures CT ABDOMEN PELVIS WO CONTRAST CT ABDOMEN PELVIS W CONTRAST Alanis Muse FNP Phone: tel: fax: [facility] [place] [address] [place] [address] Phone: tel: fax: Referral ID Status Reason Start Date Expiration Date V isits Requested Visits Authorized [id number] Closed [facility] View CTS to Schedule (SGF) 11/14/2015 12/14/2016 1 1 IGN LAW CONSULTANT Encounter Details Date Type Department Care Team (Late st Contact Info) Description 11/14/2015 Ancillary Orders [facility] [place] [address] [place] [address] Alanis Muse FNP [address] [place] [phone] Bilateral lower abdominal pain (Primary Dx); Renal colic on left side Social History Tobacco Use Types Packs/Day Years Used Date Smoking Tobacco: Never Smokeless Tobacco: Never Alcohol Use Standard Drinks/Week Comments No 0 (1 standard drink = 0.6 oz pur e alcohol) Comments Unknown Sex and Gender Information Value Date Recorded Sex Assigned at Not on file Legal Sex Female 3:12 AM FOREIGN LAW CONSULTANT Gender Identity Not on file Sexual Orientation Not on file Occupation Industry Job Start Date Job End Date Not on file Not on file Not on file Not on file documented as of this encounter Plan of Treatment Not on file documented as of this encounter Results * CT ABDOMEN PELVIS WO CONTRAST (11/14/2015 10:58 AM FOREIGN LAW CONSULTANT) Anatomical Region Laterality Modality Abdomen Computed Tomogra phy 11/14/2015 10:5 9 AM FOREIGN LAW CONSULTANT Impressions 11/14/2015 2:57 PM FOREIGN LAW CONSULTANT IMPRESSION: 1. Moderate sized questionably obstructing 6 mm calcification at the left ureteropelvic junction. 2. Tiny non-obstructing punctate calcification in the superior pole collecting system of the left kidney. [id number] Narrative 11/14/2015 2:57 PM FOREIGN LAW CONSULTANT Exam: CT ABDOMEN PELVIS WO CONTRAST Date/Time [...] colic documented in this encounter Care Teams Hardscape Foreman Relationship Specialty Start Date End Date Jelly Bahena DO [address] [place] [phone] PCP - General Family Practice 01/08/14 documented as of this encounter
[2025-09-12 10:51] VITALS: BP 129/64; PULSE 63; TEMP 36.8; O2SAT 96; BMI 42.0
--- NOTE | 2025-09-12 11:57 | CTR_ITS ---
PROCEDURE INFORMATION: Exam: CT Abdomen And Pelvis With Contrast Exam date and time: 09/12/2025 12:20 PM Age: 55 years old Clinical indication: Abdominal pain; Prior surgery; Surgery date: 6+ months; Surgery type: Gb; Additional info: Abd pain TECHNIQUE: Imaging protocol: Computed tomography of the abdomen and pelvis with contrast. Radiation optimization: All CT scans at this facility use at least one of these dose optimization techniques: automated exposure control; mA and/or kV adjustment per patient size (includes targeted exams where dose is matched to clinical indication); or iterative reconstruction. Contrast material: OMNI 350; Contrast volume: 100 ml; Contrast route: INTRAVENOUS (IV); COMPARISON: CT abdomen pelvis w con* [id number] 05/10/2025 1:27 PM RADIATION DOSE METRICS: Total DLP (mGy-cm): 1036.73 FINDINGS: Liver: Normal. No mass. Gallbladder and biliary ducts: Previous cholecystectomy. Pancreas: Normal. No ductal dilation. Spleen: Normal. No splenomegaly. Adrenal glands: Normal. No mass. Kidneys and ureters: Nonobstructing calculus lower pole right kidney. Stomach and bowel: Unremarkable. No obstruction. No mucosal thickening. Appendix: No evidence of appendicitis. Intraperitoneal space: Unremarkable. No free air. No significant fluid collection. Vasculature: Unremarkable. No abdominal aortic aneurysm. Lymph nodes: Unremarkable. No enlarged lymph nodes. Urinary bladder: Unremarkable as visualized. Reproductive: Unremarkable as visualized. Bones/joints: Unremarkable. No acute fracture. Soft tissues: Unremarkable. CT/CT abdomen pelvis w con* [id number] IMPRESSION: No acute findings.
--- NOTE | 2025-09-12 12:02 | W.ED.ABDPA2 ---
HPI - Abdominal Pain General: Chief Complaint: Abdominal Pain Stated Complaint: abd pain, n/d Time Seen by Provider: 09/12/25 11:54 Source: patient Mode of arrival: ambulatory Limitations: no limitations History of Present Illness: 55-year-old female states she been having diffuse abdominal pain along with some nausea and diarrhea over the last 2 days. States that pain is roughly a 6 out of 10 no worse or improving factors. States she has had some bloating. She denies any fevers denies any chest pain. Related Data Home Medications ?Medication ?Instructions ?Recorded ?Confirmed cholecalciferol (vitamin D3) 25 1,000 unit PO DAILY 12/16/19 07/05/25 mcg (1,000 unit) capsule fenofibrate 160 mg tablet 160 mg PO DAILY 03/07/20 07/05/25 gabapentin 300 mg capsule 300 mg PO .HS 08/07/22 07/05/25 allopurinol 300 mg tablet 300 mg PO DAILY 04/29/25 07/05/25 fluoride (sodium) 1.1 % dental See Rx Instructions .Route .COMPLEX 04/29/25 07/05/25 cream (Denta 5000 Plus) fluticasone propionate 50 2 spray intranasal DAILY PRN 04/29/25 07/05/25 mcg/actuation nasal allergies spray,suspension hydrochlorothiazide 25 mg tablet 25 mg PO DAILY 04/29/25 07/05/25 lamotrigine 200 mg tablet 200 mg PO BID 04/29/25 07/05/25 simvastatin 20 mg tablet 20 mg PO BEDTIME 04/29/25 07/05/25 tirzepatide (weight loss) 5 mg/0.5 5 mg SUBCUT Q7D 04/29/25 07/05/25 mL subcutaneous pen injector (Zepbound) coenzyme Q10 100 mg capsule 100 mg PO DAILY 05/10/25 07/05/25 (CoQ-10) vitamin D3 125 mcg (5,000 1 cap PO DAILY 05/10/25 07/05/25 unit)-vitamin K2 90 mcg capsule Previous Rx's ?Medication ?Instructions ?Recorded promethazine 25 mg tablet 25 mg PO Q6H PRN nausea and 04/29/25 vomiting #20 tabs trazodone 100 mg tablet See Rx Instructions .Route 05/03/25 .COMPLEX #120 tabs fluoxetine 20 mg capsule (Prozac) 20 mg PO DAILY #30 caps 09/08/25 fluoxetine 40 mg capsule 40 mg PO DAILY #30 caps 09/08/25 ondansetron 4 mg disintegrating 4 mg PO Q6H PRN nausea and 09/12/25 tablet vomiting #14 tabs Allergies Allergy/AdvReac Type Severity Reaction Status Date / Time Penicillins Allergy Severe ALGY-Rash Verified 09/12/25 10:55 epinephrine Allergy Intermediate Extreme Verified 09/12/25 10:55 shakes & weakness. codeine Allergy Unknown Verified 09/12/25 10:55 Review of Systems GI: Reports: abdominal pain PFSH ED PFSH: Medical History Insomnia On combination antipsychotic drug therapy Psychiatric care Urolithiasis Multi stone former requiring bilateral endoscopy 2019 with temporary stents. Clear on follow-up Recommended dietary modification for stone risk reduction Hyperlipidemia Sleep apnea, unspecified Post-traumatic stress disorder, chronic Surgical History History of colonoscopy History of hemorrhoidectomy (~02/2020) Status post laser lithotripsy of ureteral calculus S/P ureteral stent placement ureteroscopy, bilateral retrograde pyelogram, laser S/P extracorporeal shock wave therapy Hx of cholecystectomy H/O knee surgery arthroscopy lt knee H/O: hysterectomy Family History Father Diabetes Mother No problems noted. Other Cancer Hypertension Denies family history of CAD (coronary artery disease) Anesthesia complication Bleeding disorder Stroke Social History Smoking and tobacco/nicotine status: never used tobacco/nicotine Second hand smoke exposure: No Alcohol intake: never Substance/Drug Use: never Marital status: Current occupational status: disabled Physical Exam Const: COMMON NORMALS: no acute distress, patient oriented x3 and healthy appearing HENMT: COMMON NORMALS: normocephalic and atraumatic HEAD & SCALP: normocephalic and atraumatic Neck/C-Spine: COMMON NORMALS: full ROM and supple Chest: COMMONS NORMALS: normal inspection of the chest Resp: COMMON NORMALS: normal respiratory effort Cardio: COMMON NORMALS: regular rate, regular rhythm and No murmurs present (Cardio) RATE: regular rate RHYTHM: regular rhythm GI: COMMON NORMALS: Normal to inspection, nondistended, normoactive bowel sounds present, Soft to palpation and no masses PALPATION: Yes Soft to palpation OTHER: epigastric tenderness Extremity: COMMON NORMALS: normal to inspection and full ROM Neuro: COMMON NORMALS: patient oriented x3, moves all extremities and no focal motor deficits Psych: COMMON NORMALS: mental status grossly normal, Normal thought process present and cooperative THOUGHT PROCESS: Normal thought process present Skin: COMMON NORMALS: no rashes or lesions noted and no wounds GENERAL SKIN EXAM: no rashes or lesions noted Course Vital Signs: Vital signs: Vital Signs Temperature 98.2 F 09/12/25 10:51 Pulse Rate 63 09/12/25 10:51 Respiratory Rate 18 09/12/25 12:41 Blood Pressure 129/64 09/12/25 10:51 Pulse Oximetry 96 09/12/25 10:51 Oxygen Delivery Me thod Room Air 09/12/25 10:51 MDM - Abdominal Pain Medical Decision Making Patient presents here with abdominal pain over the last 2 days with some bloating differential includes appendicitis, pancreatitis, bowel obstruction. Patient's lab work here showed no significant abnormality CT scan was normal no signs of pancreatitis or bowel obstruction. She felt improved here after IV Zofran. I feel she is stable for discharge we will prescribe her Zofran for home did give her a dose of Lomotil here for diarrhea she has no signs of infectious diarrhea she is to follow-up with PCP and return if worsening Medical Records I reviewed the patient's medical records. Lab Data I reviewed the patient's lab results. 09/12/25 11:47 09/12/25 11:47 Labs/Radiology: Radiology Impressions Abdomen/Pelvis CT 09/12/25 11:57 IMPRESSION: No acute findings. Laboratory Results WBC 9.64 10^3/uL (3.29-11.43) 09/12/25 11:47 RBC 4.10 10^6/uL (3.85-5.65) 09/12/25 11:47 Hgb 12.60 g/dL (11.27-16.99) 09/12/25 11:47 Hct 39.2 % (36-47) 09/12/25 11:47 MCV 95.6 fl (85-98) 09/12/25 11:47 MCH 30.7 pg (27-33) 09/12/25 11:47 MCHC 32.1 g/dL (30-55) 09/12/25 11:47 RDW 12.9 % (12.1-15.1) 09/12/25 11:47 Plt Count 289 10^3/cmm (157-399) 09/12/25 11:47 MPV 8.8 fL (7.4-10.4) 09/12/25 11:47 Neut % (Auto) 73.0 % 09/12/25 11:47 Lymph % (Auto) 15.9 % 09/12/25 11:47 Will % (Auto) 5.5 % 09/12/25 11:47 Eos % (Auto) 5.2 % 09/12/25 11:47 Baso % (Auto) 0.2 % 09/12/25 11:47 Neut # (Auto) 7.04 10^3/uL (1.8-7.7) 09/12/25 11:47 Lymph # (Auto) 1.5 10^3/uL (0.8-4.8) 09/12/25 11:47 Will # (Auto) 0.5 10^3/uL (0.2-0.9) 09/12/25 11:47 Eos # (Auto) 0.5 10^3/uL (0.0-0.8) 09/12/25 11:47 Baso # (Auto) 0.0 10^3/uL (0.0-0.1) 09/12/25 11:47 Nucleated RBC % (auto) 0 % 09/12/25 11:47 Nucleated RBCs # 0.0 /100WBC 09/12/25 11:47 Sodium 140 mmol/L (136-145) 09/12/25 11:47 Potassium 3.9 mmol/L (3.5-5.1) 09/12/25 11:47 Chloride 103 mmol/L (98-107) 09/12/25 11:47 Carbon Dioxide 26 mmol/L (22-29) 09/12/25 11:47 Anion Gap 14.9 (5-19) 09/12/25 11:47 BUN 16 mg/dL (6-20) 09/12/25 11:47 Creatinine 0.9 mg/dL (0.5-0.9) 09/12/25 11:47 GFR Calculation 64.8 mL/min (90-130) L 09/12/25 11:47 Glucose 106 mg/dL (65-115) 09/12/25 11:47 Calculated Osmolality 292 mOsm/kg (285-295) 09/12/25 11:47 Calcium 10.1 mg/dL (8.5-10.5) 09/12/25 11:47 Total Bilirubin 0.4 mg/dL (0.15-1.2) 09/12/25 11:47 AST 17 U/L (0-32) 09/12/25 11:47 ALT 11 U/L (0-33) 09/12/25 11:47 Alkaline Phosphatase 44 U/L (35-105) 09/12/25 11:47 Total Protein 7.1 g/dL (6.6-8.7) 09/12/25 11:47 Albumin 4.3 g/dL (3.5-5.2) 09/12/25 11:47 Globulin 2.8 g/dL (1.3-4.6) 09/12/25 11:47 Lipase 23 U/L (13-60) 09/12/25 11:47 Urine Color Yellow (Yellow) 09/12/25 11:47 Urine Appearance Clear (CLEAR) 09/12/25 11:47 Urine pH 5.5 (5-7) 09/12/25 11:47 Ur Specific [place] 1.020 (1.005-1.030) 09/12/25 11:47 Urine Protein Negative (Negative) 09/12/25 11:47 Urine Glucose (UA) Negative (Normal) 09/12/25 11:47 Urine Ketones Trace (Negative) 09/12/25 11:47 Urine Blood Negative (Negative) 09/12/25 11:47 Urine Nitrate Negative (Negative) 09/12/25 11:47 Urine Bilirubin Negative (Negative) 09/12/25 11:47 Urine Urobilinogen 1.0 mg/dL (Negative) 09/12/25 11:47 Ur Leukocyte Esterase Trace (Negative) A 09/12/25 11:47 Urine RBC 0-2 /hpf (0-2) 09/12/25 11:47 Urine WBC 0-5 /hpf (0-5) 09/12/25 11:47 Ur Squamous Epith Cells 0-5 /hpf (0-5) 09/12/25 11:47 Amorphous Sediment Not Reportable 09/12/25 11:47 Urine Bacteria None seen /hpf (NONE) 09/12/25 11:47 Hyaline Casts 2.46 /lpf 09/12/25 11:47 All radiology interpretation(s) finalized by discharge Discharge Plan Discharge Patient Disposition: Home Clinical Impression: Abdominal pain Condition: Stable Prescriptions: New ondansetron 4 mg tablet,disintegrating 4 mg PO Q6H PRN (Reason: nausea and vomiting) Qty: 14 0RF No Action fenofibrate 160 mg tablet 160 mg PO DAILY cholecalciferol (vitamin D3) 25 mcg (1,000 unit) capsule 1,000 unit PO DAILY gabapentin 300 mg capsule 300 mg PO .HS trazodone 100 mg tablet See Rx Instructions .ROUTE .COMPLEX Qty: 120 2RF Dose Instruction: TAKE FOUR TABLETS BY MOUTH NIGHTLY AT BEDTIME Rx Instructions: TAKE FOUR TABLETS BY MOUTH NIGHTLY AT BEDTIME fluoxetine [Prozac] 20 mg capsule 20 mg PO DAILY Qty: 30 2RF Rx Instructions: along with 40mg to= 60mg daily fluoxetine 40 mg capsule 40 mg PO DAILY Qty: 30 2RF Rx Instructions: along with 20mg to=60mg daily. simvastatin 20 mg tablet 20 mg PO BEDTIME hydrochlorothiazide 25 mg tablet 25 mg PO DAILY fluticasone propionate 50 mcg/actuation spray,suspension 2 spray INTRANASAL DAILY PRN (Reason: allergies) fluoride (sodium) [Denta 5000 Plus] 1.1 % cream See Rx Instructions .ROUTE .COMPLEX Rx Instructions: BRUSH ON ONCE daily BEFORE bed instructed by dentist. Zepbound 5 mg/0.5 mL pen injector 5 mg SUBCUT Q7D Rx Instructions: Fridays lamotrigine 200 mg tablet 200 mg PO BID allopurinol 300 mg tablet 300 mg PO DAILY promethazine 25 mg tablet 25 mg PO Q6H PRN (Reason: nausea and vomiting) Qty: 20 0RF coenzyme Q10 [CoQ-10] 100 mg Capsule 100 mg PO DAILY vitamin D3-vitamin K2 125-90 mcg Capsule 1 cap PO DAILY Discharge Orders: Discharge ED (Routine); Ordered 09/12/25 Ordered By: Sheila Mendez Referrals: Bj Limon FNP [Primary Care Provider] - 4-7 days Discharge Diet: Advance as tolerated Discharge Activity: Resume usual activity Patient Instructions: Abdominal Pain (ED) Print Language: [place] Coding Level of Care Code ED Inspector Receiving for John Joy
[2025-09-12 12:06] LABS: Hematocrit 39.2 % (36-47); Hemoglobin 12.60 g/dL (11.27-16.99); Mean Corpuscular HGB Conc 32.1 g/dL (30-55); Mean Corpuscular Hemoglobin 30.7 pg (27-33); Mean Corpuscular Volume 95.6 fl (85-98); Nucleated Red Blood Cells % 0 %; Platelet Count 289 10^3/cmm (157-399); Red Blood Count 4.10 10^6/uL (3.85-5.65); White Blood Count 9.64 10^3/uL (3.29-11.43)
[2025-09-12 12:15] LABS: Glucose Urine UA Negative (Normal); Nitrate Urine Negative (Negative); Specific Gravity, Urine 1.020 (1.005-1.030)
[2025-09-12 12:17] LABS: Add Urine Microscopic? YES
[2025-09-12] MEDS: iohexol 350 mg/mL 500 mL Btl (per mL) IV (12:24)
[2025-09-12 12:25] LABS: Alanine Aminotransferase 11 U/L (0-33); Albumin Level 4.3 g/dL (3.5-5.2); Alkaline Phosphatase 44 U/L (35-105); Anion Gap 14.9 (5-19); Aspartate Amino Transferase 17 U/L (0-32); Blood Urea Nitrogen 16 mg/dL (6-20); Calcium 10.1 mg/dL (8.5-10.5); Carbon Dioxide 26 mmol/L (22-29); Chloride 103 mmol/L (98-107); Globulin 2.8 g/dL (1.3-4.6); Glucose 106 mg/dL (65-115); Lipase 23 U/L (13-60); Osmolality Calculated 292 mOsm/kg (285-295); Potassium 3.9 mmol/L (3.5-5.1); Sodium 140 mmol/L (136-145); Total Protein 7.1 g/dL (6.6-8.7)
[2025-09-12 12:41] VITALS: RESP 18
[2025-09-12] MEDS: morphine 4 mg/mL SDV 1 mL IVP (12:41)
[2025-09-12] MEDS: ondansetron 2 mg/ML SDV 2 mL 4 MG IVP (12:41)
[2025-09-12 13:12] VITALS: BP 129/61; PULSE 55; O2SAT 94
== END 2025-09-12 13:12 | disposition home or self-care (01) ==
PROVIDERS: Emergency Provider Emergency Medicine; PCP Nurse Practitioner Family
DX: R10.9 Unspecified abdominal pain (principal); E78.5 Hyperlipidemia, unspecified
CPT/HCPCS: 36415; 74177; 80053; 81001; 83690; 85025; 96374; 96375; 99285; J2270; J2405; J7030; J9999